=== PATIENT | female | born 1970 | race African-American/Black ===

== ENCOUNTER 2016-08-20 19:11 | Inpatient (IN) | payer OTHER ==
[~2016-08-20] VITALS: Ht 165.1 cm; Wt 173.2 kg
--- NOTE | ~2016-08-20 | H ---
[facility] [place] [address] HISTORY AND PHYSICAL Name: JOHN SPARKS Room #: 457-P ADM IN M.R.#: [id number] Admission: 08/20/16 Attend Phys: Elvira Ghosh DO Discharge: Date of : 66 Report #: [id number] THIS REPORT FOR: //name// CC: ROBERTA physician/PCP Elvira Ghosh DATE OF SERVICE: 08/21/2016 CHIEF COMPLAINT: Defibrillator firing. HISTORY OF PRESENT ILLNESS: The patient is a 45-year-old female, who was admitted through the emergency room with some palpitations and apparent discharge of her defibrillator. She was having bowel movement at home and approximately at 06:30 last night, the defibrillator fired twice. She felt little lightheaded preceding this, but had no chest pain or shortness of breath. She said she felt 2 episodes of likely a "pop" inside her chest. She presented to the emergency room and was clinically stable. However, she was noted to have slightly low potassium and magnesium. She was placed on observation status overnight. Telemetry has been stable, and no further shocks from the defibrillator. PAST MEDICAL HISTORY: Morbid obesity, hypertension, COPD due to asthma, obstructive sleep apnea, diabetes type 2, history of myocardial infarction in 2011, dyslipidemia, GERD, chronic ischemic cardiomyopathy, chronic kidney disease stage 3, permanent atrial fibrillation on anticoagulation, depression, PTSD, moderate to severe mitral insufficiency with ejection fraction of 20%, and coronary artery disease. PAST SURGICAL HISTORY: She has had a pacemaker defibrillator placement, left radial fracture. C-sections and tonsillectomy. FAMILY HISTORY: Noncontributory. SOCIAL HISTORY: She lives at home. No chronic alcohol or tobacco use. ALLERGIES: CIPRO. MEDICATIONS: Lantus 53 units at bedtime, gabapentin 200 mg t.i.d., NovoLog sliding scale, amiodarone 200 mg b.i.d., Tradjenta 5 mg, magnesium 400 mg, Coreg 50 mg b.i.d., Xarelto 15 mg, Imdur 60 mg, venlafaxine 225 mg, BuSpar 7.5 mg b.i.d., Lipitor 10 mg, ProAir, Demadex 40 mg, metolazone 2.5 mg, Cozaar 25 mg, allopurinol 100 mg. REVIEW OF SYSTEMS: She denies headache, chest pain, shortness of breath, abdominal pain, nausea, vomiting, diarrhea, constipation, dysuria, syncope, or fall. [facility] [address] [place] [address] HISTORY AND PHYSICAL Name: JOHN SPARKS Room #: 457-P [facility] IN ..#: [id number] Admission: 08/20/16 Attend Phys: Elvira Ghosh DO Discharge: Date of : 66 Report #: [id number] OBJECTIVE: VITAL SIGNS: Temperature 36.8, pulse 89, respirations 16, blood pressure 105/63, O2 sat 100% on room air. GENERAL: She is awake and alert, in no distress. LUNGS: Clear. HEART: Regular. ABDOMEN: Soft and normoactive bowel sounds. EXTREMITIES: No edema. LABORATORY DATA: Admission potassium was 3.2, magnesium was 1.7. Troponin was 0.21-0.32. BNP was 262. IMAGING: Chest x-ray showed clear lung nunez. ASSESSMENT: 1. Ischemic cardiomyopathy. 2. Defibrillator discharge times 2. 3. Electrolyte disturbance. 4. Chronic kidney disease stage 4 with estimated GFR of 25. 5. Diabetes type 2. 6. Chronic obstructive pulmonary disease. 7. Morbid obesity. PLAN: She has received electrolyte replacement through the ER. Initially, she was going to be discharged home, and her funeral greeter was contracted and cleared with that; however, they watched her overnight. I feel the elevated troponin is related to cardiac stress from the defibrillator, and her empiric creatinine clearance. If cardiology has no further plans for her, and it appears that they were ready to later go home last night, and followup next week, and then she can be discharged later today. Once electrolytes have been rechecked, I will increase her magnesium to twice a day and make sure she has potassium one a day for home. Follow up with her funeral greeter next week for lab work. <ELECTRONICALLY SIGNED> By: Cayden Kerr MD 08/21/16 1636 0825 1037 Cayden Kerr MD /nt
--- NOTE | ~2016-08-20 | HC ---
[facility] [place] [address] CONSULTATION Name: JOHN SPARKS Room #: 457-P ADM IN M.R.#: [id number] Admission: 08/20/16 Attend Phys: Elvira Ghosh DO Discharge: Date of : 66 Report #: [id number] THIS REPORT FOR: //name// CC: ROBERTA physician/PCP Elvira Ghosh DATE OF SERVICE: 08/22/2016 TYPE OF REPORT: Cardiology consultation. INDICATION: ICD discharge. HISTORY OF PRESENT ILLNESS: This is a 45-year-old female with presenting with an ICD discharge. She has a complicated cardiac history including CAD with disease in the small branch vessels, nonischemic cardiomyopathy, atrial fibrillation, COPD and chronic renal insufficiency. She is followed by Dr. Song Rider from [facility]. She reports having ICD discharge times 2 last evening while going to the bathroom. She offers no history of chest pains, fever, chills or congestion. In the ER, the defibrillator was interrogated by the pacemaker enrollment representative who reported 2 episodes of discharge. Unclear if it was ST-T versus VF. Laboratory workup revealed potassium level of 3.2 and a magnesium level of 1.7, both were supplemented. On telemetry, she has not had any further episodes of arrhythmia. PAST MEDICAL HISTORY: Cath in 2011 revealed mrgv-yq-tjfumvjh disease in the major vessels, she did have cslcvqig-nd-ocmxmb lesions in small branches including diagonal, PDA and posterolateral branch. Medical therapy was recommended. She does have a history of nonischemic cardiomyopathy, paroxysmal atrial fibrillation, morbid obesity, COPD, chronic renal insufficiency, edema, hypertension and hypercholesterolemia. ALLERGIES: CIPRO. MEDICATIONS AT HOME: Include Coreg 50 mg twice a day, Xarelto 15 mg daily, insulin, Imdur 60 mg, Lipitor, Demadex 40 mg, metolazone, Cozaar and allopurinol. SOCIAL HISTORY: Denies tobacco use. FAMILY HISTORY: Negative for premature CAD. REVIEW OF SYSTEMS: A full 10-point review of systems performed. Only the pertinent positives and negatives are described in the HPI. PHYSICAL EXAMINATION: VITAL SIGNS: Blood pressure is 100/60 and heart rate is 70 beats per minute. [facility] [address] [place] [address] CONSULTATION Name: JOHN SPARKS Room #: 457-P [facility] IN [facility].#: [id number] Admission: 08/20/16 Attend Phys: Elvira Ghosh DO Discharge: Date of : 66 Report #: [id number] GENERAL APPEARANCE: This is an obese female, in no acute respiratory distress. HEAD AND EYES: Normocephalic. Sclerae are anicteric. ENT: Oral mucosa moist. NECK: Supple. LUNGS: Clear to auscultation. CARDIAC: S1 and S2 positive. ABDOMEN: Soft and protuberant. EXTREMITIES: No major joint deformities. Trace edema. LABORATORY VALUES: Peak troponin is 0.59. RADIOLOGICAL DATA: ECG reveals sinus rhythm and left bundle-branch block. ASSESSMENT AND PLAN: 1. Implantable cardioverter-defibrillator discharge, unclear if this was ST-T versus ventricular fibrillation. May have been triggered by electrolyte imbalance. She will need an electrophysiology evaluation, it may be down as an outpatient if she wants a followup with her coal crusher operator at [facility]. Continue with oral supplementation of the magnesium and potassium. 2. Coronary artery disease with troponin is 0.59, this is not a gsr-HE-migrlbl-elevation myocardial infarction, more likely related from mismatch secondary to arrhythmia and implantable cardioverter-defibrillator discharge. Clinically stable at this time. 3. Cardiomyopathy, stable with no overt symptoms of congestion. 4. Paroxysmal atrial fibrillation, remains in sinus rhythm. Continue with anticoagulation and amiodarone. 5. Chronic renal insufficiency. 6. Chronic obstructive pulmonary disease. Thank you for allowing me to participate in the care of your patient. <ELECTRONICALLY SIGNED> By: Ted Terrell MD 08/23/16 0748 1630 2354 Ted Terrell MD /nt
--- NOTE | ~2016-08-20 | EKG ---
[address] [place] [address] ELECTROCARDIOGRAM REPORT Name: JOHN SPARKS Room #: 457-P ADM IN M.R.#: [id number] Admission: 08/20/16 Attend Phys: Elvira Ghosh DO Discharge: Date of : 66 Report #: [id number] THIS REPORT FOR: //name// [facility] ED Test Date: 2016-08-20 Test Time: 19:27:17 Pat Name: JOHN SPARKS Department: Room: [facility] Gender: F Oil Changer: VIK : 1970 Requested By: Bindu Adame Order Number: [id number] MD: Sharad Payan Measurements Intervals [place]berta Rate: 96 P: 11 WV: 212 QRS: -28 QRSD: 137 T: 140 QT: 406 QTc: 514 Interpretive Statements Sinus tachycardia Atrial premature complexes in couplets Prolonged WV interval Left bundle branch block Compared to ECG 03/20/2016 14:38:16 Atrial premature complexes are now present Electronically Signed On 08-21-2016 7:53:54 WORKERS COMPENSATION CLAIMS SPECIALIST by Sharad Payan [email or web address] <ELECTRONICALLY SIGNED> By: Sharad Payan MD, [facility] 08/21/16 0753 192 26 Sharad Payan MD, [facility] /EPI
--- NOTE | ~2016-08-20 | D ---
[facility] [place] [address] DISCHARGE SUMMARY Name: JOHN SPARKS Room #: 457-P [facility] IN M.R.#: [id number] Admission: 08/20/16 Attend Phys: Elvira Ghosh DO Discharge: 08/23/16 Date of : 66 Report #: [id number] THIS REPORT FOR: //name// CC: ROBERTA physician/PCP Elvira Ghosh FINAL DIAGNOSES: 1. Implantable cardioverter defibrillator discharge. 2. Electrolyte disturbance. 3. Cardiomyopathy. 4. Diabetes type 2. 5. Hypertension. 6. Chronic kidney disease stage 4. HOSPITAL COURSE: The patient was admitted through the ER after her defibrillator discharged twice at home. She was found to have low magnesium and potassium. This was supplemented in the ER. Initially, the note suggested ER staff had consulted with her ultrasound technologist sonographer, who recommended she could be discharged to home. However, the health allied staff obtained a troponin level which was elevated. For this reason, she then called Dr. Prado to have her admitted. She was watched overnight. Troponin levels were slightly elevated. I felt this was related to the discharge of the defibrillator. She then had an episode of hypotension and low doses of IV fluids were given. Her home medications were held. The cardiology service then saw her and felt again no new recommendations or treatments for the troponin levels were related to the defibrillator discharge. She had no other interval complications. PHYSICAL EXAMINATION: GENERAL: On the day of discharge, she was awake and alert. VITAL SIGNS: Stable. LUNGS: Clear. HEART: Regular. ABDOMEN: Soft. EXTREMITIES: No edema. DISPOSITION: She will be discharged to home to resume all usual medications, with a change being magnesium 400 mg b.i.d. She is to follow up with Dr. Rider this coming week for followup lab work and follow up with me here in the office in 3 weeks. Diabetic diet and activity as tolerated. <ELECTRONICALLY SIGNED> By: Cayden Kerr MD 08/25/16 1035 0910 0948 Cayden Kerr MD /nt
[~2016-08-20 19:11] MED LIST: ACID CONTROL20 MG PO; ADULT LOW DOSE81 MG PO; ADVAIR HFA 1112 UNIT INH; ALBUTEROL2.5 MG/0.1 IH; ALBUTEROL2.5 MG/0.5 INH; ALBUTEROL2.5 MG/31 INH; ALDACTONE25 MG PO; ALLOPURINOL 10100 M1 PO; AMLODIPINE BESYL5 MG PO; AMOXICILLIN875 MG PO; APAP500 PO; ASPIRIN325 PO; AUGMENTIN 875875 MG PO; AVELOX 400 MG400 M1 PO; AZITHROMYCIN 2250 MG PO; BACTRIM 400-801 EACH PO; BACTRIM DS TAB1 EAC1 PO; BACTRIM DS TAB1 EACH PO; BENAZEPRIL HCL40 MG PO; BUSPIRONE HCL7.5 MG PO; CARDURA2 MG PO; CARDURA4 MG PO; CARVEDILOL25 MG PO; CEFTIN 250 MG250 MG PO; CEPHALEXIN 500500 M1 PO; CIPROFLOXACIN500 M1 PO; CLARITIN10 MG PO; CLEOCIN HCL150 MG PO; CLEOCIN HCL300 MG PO; COLCHICINE0.6 MG PO; COUMADIN; COUMADIN 5 MG TA5 M1 PO; COUMADIN 5 MG TA5 MG PO; COZAAR 25 MG TA25 M1 PO; DEMADEX20 MG PO; DIFLUCAN PO; DIFLUCAN100 MG PO; DILTIAZEM 24HR240 MG PO; DOXYCYCLINE 10100 M1 PO; DOXYCYCLINE 10100 MG PO; DUONEB 2.5-0.5 M3 ML INH; EFFEXOR XR150 MG PO; EFFEXOR XR75 MG PO; EFFEXOR75 MG PO; ERYTHROMYCIN E3.5 G3 OP; FAMOTIDINE20 MG PO; FUROSEMIDE 40 M40 M1 PO; FUROSEMIDE PO; GABAPENTIN100 MG PO; GENTAMICIN 0.1%15 G2 TOP; GLUCOSE4 GM PO; HUMALOG100 UNIT/1 SUBQ; HYDROCODON-ACE1 EAC7 PO; HYDROCODONE-AP1 EAC6 PO; IMDUR 60 MG TAB60 M1 PO; IMDUR 60 MG TAB60 MG PO; IMDUR120 MG PO; ISOSORBIDE DINI30 MG PO; K-DUR 20 MEQ T20 MEQ PO; KEFLEX500 MG PO; KLOR-CON 1010 MEQ PO; KLOR-CON M1515 MEQ PO; LANTUS SC; LANTUS SUBQ; LASIX 40 MG TAB40 M1 PO; LASIX 80 MG TAB80 MG PO; LEVEMIR; LEXAPRO20 MG PO; LIPITOR10 MG PO; LISINOPRIL20 MG PO; LISINOPRIL40 MG PO; LORTABELXR PO; MAG DELAY64 MG PO; MAGNESIUM250 M1 PO; MAGNESIUM400 M1 PO; MAGOX 400400 MG PO; MEDROL DOSPAK21 TAB PO; MEDROLDOSEPACK; METOCLOPRAMIDE 55 M1 PO; METOLAZONE 2.52.5 M1 PO; METOLAZONE 2.52.5 MG PO; METOLAZONE 5 MG5 M1 PO; MUCINEX DM TABL1 TA1 PO; MULTIVITAMINS PO; NAPROSYN500 MG PO; NITROGLYCERIN0.4 MG SL; NITROGLYCERIN0.4 MG SUBLING; NORCO 10-325 T1 EACH PO; NORCO 5-325 TA1 EACH PO; NORFLEX100 MG PO; NOVOLOG FL100 UNIT/M SUBQ; NOVOLOG100 UNIT/1 SQ; NOVOLOG100 UNIT/1 SUBQ; ONDANSETRON HCL4 M2 PO; PACERONE 200 M200 M1 PO; PENICILLIN VK500 MG PO; PERCOCET 5-3251 EACH PO; PHENERGAN 25 MG25 MG PO; POTASSIUM CHLO20 ME1 PO; POTASSIUM CHLO20 ME2 PO; POTASSIUM20 PO; PRAVACHOL40 M1 PO; PRAVACHOL40 MG PO; PRAVASTATIN SOD80 MG PO; PREDNISOLONE 5 M5 M1; PREDNISONE 20 M20 M1 PO; PREDNISONE 20 M20 MG PO; PREDNISONE50 MG PO; PRINIVIL20 MG PO; PROAIR HFA8.5 GM IH; PROAIR HFA8.5 GM INH; PROVENTIL HFA6.7 G1 INH; PROVENTIL IH; SANTYL TOP; SIMVASTATIN40 MG PO; SPIRONOLACTONE100 M4 PO; SPIRONOLACTONE25 M1 PO; SPIRONOLACTONE50 MG PO; STERAPRED5 MG PO; SYMBICORT160 MCG/4. INH; TORSEMIDE20 MG PO; TRADJENTA5 MG PO; TYLENOL EX-STR500 M2 PO; VENLAFAXINE HC225 MG PO; VENLAFAXINE HCL75 M2 PO; XARELTO15 MG PO; ZESTRIL40 MG PO; ZPAK PO
[2016-08-20 19:16] VITALS: BP 138/82
[2016-08-20 19:46] LABS: CALCIUM 9.6 mg/dL (8.5-10.1); CREATININE 2.5 mg/dL (0.6-1.3); POTASSIUM 3.2 mmol/L (3.5-5.1)
[2016-08-20 19:47] LABS: ABSOLUTE NEUTROPHILS 4.5 thou/uL (1.4-8.2); BASOPHILS 1.1 % (0.0-2.0); EOSINOPHILS 1.1 % (0.0-3.0); HEMOGLOBIN 14.9 gm/dL (12.0-15.0); LYMPHOCYTES 33.8 % (24.0-44.0); MANUAL DIFF NO; MCH 27.7 pg (26.0-34.0); MCHC 34.7 % (28.0-37.0); MCV 79.9 fL (80.0-100.0); MONOCYTES 8.4 % (1.0-8.0); PLATELET COUNT 219 thou/uL (150-400); POLYS 55.6 % (36.0-66.0); RBC 5.38 mil/uL (4.20-5.00); RDW 14.5 % (10.5-14.5); WBC 8.1 thou/uL (4.0-11.0)
[2016-08-20 19:51] LABS: APTT 33.8 Seconds (24.5-32.8); INR 1.3; PROTIME 13.9 Seconds (9.3-11.4)
[2016-08-20 19:59] LABS: ALBUMIN 3.6 g/dL (3.4-5.0); TOTAL BILIRUBIN 0.6 mg/dL (<0.1-1.0); TOTAL PROTEIN 8.6 g/dL (6.4-8.2); TROPONIN-I 0.21 ng/mL (<0.04-0.07)
[2016-08-20 23:34] VITALS: BP 124/70
[2016-08-20 23:50] VITALS: BP 147/94
[2016-08-21 04:05] VITALS: BP 137/77
[2016-08-21 07:58] VITALS: BP 105/63
[2016-08-21 09:39] LABS: CALCIUM 9.1 mg/dL (8.5-10.1); CREATININE 2.3 mg/dL (0.6-1.3); MAGNESIUM 2.1 mg/dL (1.8-2.4)
[2016-08-21 10:58] VITALS: BP 103/57
[2016-08-21 15:37] VITALS: BP 121/74
[2016-08-21 21:01] VITALS: BP 76/48
[2016-08-21 23:52] VITALS: BP 89/45
[2016-08-22] VITALS (8 sets, daily range): BP systolic 89–118; BP diastolic 45–92
[2016-08-22 06:03] LABS: CALCIUM 8.9 mg/dL (8.5-10.1); MAGNESIUM 2.3 mg/dL (1.8-2.4); POTASSIUM 3.9 mmol/L (3.5-5.1)
[2016-08-22 06:56] LABS: CREATININE 3.5 mg/dL (0.6-1.3)
[2016-08-23 03:59] VITALS: BP 113/57
[2016-08-23 05:59] LABS: HEMATOCRIT 37.6 % (37.0-47.0); MCH 26.7 pg (26.0-34.0); MCHC 32.8 % (28.0-37.0); MCV 81.4 fL (80.0-100.0); RBC 4.62 mil/uL (4.20-5.00); RDW 14.4 % (10.5-14.5); WBC 6.6 thou/uL (4.0-11.0)
[2016-08-23 06:08] LABS: HEMOGLOBIN 12.3 gm/dL (12.0-15.0)
[2016-08-23 06:33] LABS: CALCIUM 8.8 mg/dL (8.5-10.1); CREATININE 3.3 mg/dL (0.6-1.3); MAGNESIUM 2.4 mg/dL (1.8-2.4); POTASSIUM 3.1 mmol/L (3.5-5.1)
[2016-08-23 07:40] VITALS: BP 126/69
[2016-08-23 10:18] VITALS: BP 126/69
== END 2016-08-23 15:47 | disposition home or self-care (01) | DRG 315 ==
LOC: ER 19:11 → 4W 22:55 → EROBS 22:55 → 4W 23:40
PROVIDERS: Emergency Medicine; Internal Medicine Geriatric Medicine
DX: T82.897A Other specified complication of cardiac prosthetic devices, implants and grafts, initial encounter (principal); N18.4 Chronic kidney disease, stage 4 (severe); I13.0 Hypertensive heart and chronic kidney disease with heart failure and stage 1 through stage 4 chronic kidney disease, or unspecified chronic kidney disease; Z68.44 Body mass index [BMI] 60.0-69.9, adult; I50.9 Heart failure, unspecified; M10.9 Gout, unspecified; G47.33 Obstructive sleep apnea (adult) (pediatric); E78.00 Pure hypercholesterolemia, unspecified; J45.909 Unspecified asthma, uncomplicated; J44.9 Chronic obstructive pulmonary disease, unspecified; F43.10 Post-traumatic stress disorder, unspecified; I25.10 Atherosclerotic heart disease of native coronary artery without angina pectoris; I25.5 Ischemic cardiomyopathy; I48.2 Chronic atrial fibrillation; E87.6 Hypokalemia; E83.42 Hypomagnesemia; E11.22 Type 2 diabetes mellitus with diabetic chronic kidney disease; F32.9 Major depressive disorder, single episode, unspecified; K80.20 Calculus of gallbladder without cholecystitis without obstruction; I95.9 Hypotension, unspecified; E78.5 Hyperlipidemia, unspecified; E66.01 Morbid (severe) obesity due to excess calories; Z23 Encounter for immunization; I34.0 Nonrheumatic mitral (valve) insufficiency; K21.9 Gastro-esophageal reflux disease without esophagitis; I25.2 Old myocardial infarction; Z79.01 Long term (current) use of anticoagulants; Z98.890 Other specified postprocedural states; Z79.899 Other long term (current) drug therapy; Z88.1 Allergy status to other antibiotic agents; Y83.8 Other surgical procedures as the cause of abnormal reaction of the patient, or of later complication, without mention of misadventure at the time of the procedure; Y92.89 Other specified places as the place of occurrence of the external cause
CPT/HCPCS: 10045

== ENCOUNTER 2017-03-15 08:12 | Inpatient (IN) | payer OTHER ==
[~2017-03-15] VITALS: Ht 165.1 cm; Wt 172.4 kg
--- NOTE | ~2017-03-15 | EKG ---
[address] [address] ELECTROCARDIOGRAM REPORT Name: JOHN SPARKS Room #: 447-P ADM IN .R.#: [id number] Admission: 03/15/17 Attend Phys: Bandar Lombardo MD Discharge: Date of : 66 Report #: [id number] THIS REPORT FOR: //name// [facility] ED Test Date: 2017-03-15 Test Time: 08:23:41 Pat Name: JOHN THOMASENSHIP Department: Room: [facility] Gender: F Auto Detailer: . : 1970 Requested By: Kimber Bai Order Number: [id number] MD: Measurements Intervals Reading Rate: 89 P: MD: QRS: -13 QRSD: 129 T: 118 QT: 421 QTc: 513 Interpretive Statements Atrial fibrillation Nonspecific intraventricular conduction delay Probable anterolateral infarct, old Compared to ECG 08/20/2016 19:27:17 Intraventricular conduction delay now present Myocardial infarct finding now present Sinus tachycardia no longer present Atrial premature complex(es) no longer present First degree AV block no longer present Left bundle-branch block no longer present [email or web address] By: 2 2 Epiphany Epiphany, /JOE
--- NOTE | ~2017-03-15 | 2DMMODE ---
[facility] [address] [place] [address] 2 D/M-MODE ECHOCARDIOGRAM Name: DAT SPARKSN RISHABH Room #: 447-P ADM IN .Alvaro.#: [id number] Admission: 03/15/17 Attend Phys: Bandar Lombardo MD Discharge: Date of : 66 Date of Service: 03/15/17 1545 Report #: [id number] THIS REPORT FOR: //name// APPROVED REPORT Study performed: 03/15/2017 14:05:14 EXAM: Comprehensive 2D, Doppler, and color-flow Echocardiogram Patient Location: Bedside Room #: 447 Status: routine Other Information Study Quality: Technically Difficult, Adequate Technically limited study due to body habitus, inability to position patient. Indications Congestive Heart Failure Diabetes Pacemaker CAD Hypertension/HDD Echo Enhancing Agent Indication: Endocardial border delineation Agent(s) / Amount(s) Used: Optison 3 cc 2D Dimensions RVDd: 39.70 mm LVEF(%): 30.13 (>50%) IVSd: 11.54 (7-11mm) LVOT Diam: 22.35 (18-24mm) LVDd: 61.32 mm PWd: 11.88 (7-11mm) Ascending Ao: 28.85 (22-36mm) LVDs: 52.46 (25-40mm) Aortic Root: 25.96 mm IVC: 15.00 mm Ellis's LVEF: 30.13 % Volumes Left Atrial Volume (Systole) Single Plane 4CH: 72.64 mL Single Plane 2CH: 76.88 mL LA ESV Index: 31.00 mL/m2 Aortic Valve AoV Peak Bhupendra.: 1.67 m/s [facility] [address] [place] [address] 2 D/M-MODE ECHOCARDIOGRAM Name: JOHN SPARKS Room #: 447-P [facility] IN ..#: [id number] Admission: 03/15/17 Attend Phys: Bandar Lombardo MD Discharge: Date of : 66 Date of Service: 03/15/17 1545 Report #: [id number] Peak Gr.: 11.11 mmHg LVOT Max P.48 mmHg LVOT Max V: 1.06 m/s DARRYL Vmax: 2.49 cm2 Mitral Valve E/A Ratio: 1.3 MV Decel. Time: 189.78 ms MV E Max Bhupendra.: 1.24 m/s MV A Bhupendra.: 0.92 m/s MV PHT: 55.04 ms IVRT: 83.04 ms Pulmonary Valve PV Peak Bhupendra.: 1.49 m/s PV Peak Gr.: 8.82 mmHg Pulmonary Vein P Vein S: 0.32 m/s P Vein A: 0.10 m/s P Vein D: 0.39 m/s P Vein A Dur.: 69.2 msec P Vein S/D Ratio: 0.82 Tricuspid Valve TR Peak Bhupendra.: 3.88 m/s RAP Estimate: 5.00 mmHg TR Peak Gr.: 60.32 mmHg Left Ventricle Left ventricle is dilated. Mild concentric left ventricular hypertrophy. Left ventricular systolic function is decreased. LVEF is 30-35%. Transmitral Doppler flow pattern appears normal. Right Ventricle Right ventricle is dilated. Right ventricular systolic function is grossly normal. Atria Left atrium is dilated. Right atrium is dilated. Aortic Valve The aortic valve is normal in structure. Mild aortic regurgitation. There is no aortic valvular stenosis. Mitral Valve The mitral valve is normal in structure. There is no mitral valve regurgitation noted. No evidence of mitral valve stenosis. Tricuspid Valve The tricuspid valve is normal in structure. Mild tricuspid [facility] [address] [address] 2 D/M-MODE ECHOCARDIOGRAM Name: JOHN SPARSK Room #: 447-P ADM IN ..#: [id number] Admission: 03/15/17 Attend Phys: Bandar Lombardo MD Discharge: Date of : 66 Date of Service: 03/15/17 1545 Report #: [id number] regurgitation. Pulmonic Valve The pulmonary valve is normal in structure. Trace pulmonic regurgitation. Great Vessels The aortic root is normal in size. IVC is normal in size and collapses >50% with inspiration. <Conclusion> Left ventricle is dilated. Mild concentric left ventricular hypertrophy. LVEF is 30-35%. Right ventricle is dilated. Left atrium is dilated. Right atrium is dilated. The aortic valve is normal in structure. Mild aortic regurgitation. The mitral valve is normal in structure. The tricuspid valve is normal in structure. Mild tricuspid regurgitation. The aortic root is normal in size. <ELECTRONICALLY SIGNED> By: Steve Garay MD 03/15/17 1545 1545 1545 Steve Garay MD /INF
[2017-03-15 08:12] VITALS: BP 167/98
[2017-03-15 08:44] LABS: ABSOLUTE NEUTROPHILS 4.2 thou/uL (1.4-8.2); BASOPHILS 1.2 % (0.0-2.0); EOSINOPHILS 1.4 % (0.0-3.0); HEMATOCRIT 34.1 % (37.0-47.0); HEMOGLOBIN 11.4 gm/dL (12.0-15.0); LYMPHOCYTES 26.5 % (24.0-44.0); MCH 27.3 pg (26.0-34.0); MCHC 33.4 g/dL (28.0-37.0); MCV 81.6 fL (80.0-100.0); MONOCYTES 7.9 % (1.0-8.0); PLATELET COUNT 165 thou/uL (150-400); RBC 4.18 mil/uL (4.20-5.00); RDW 14.6 % (10.5-14.5); WBC 6.6 thou/uL (4.0-11.0)
[2017-03-15 08:47] LABS: MANUAL DIFF NO
[2017-03-15 08:55] LABS: CALCIUM 8.7 mg/dL (8.5-10.1); CREATININE 1.5 mg/dL (0.6-1.0); POTASSIUM 3.3 mmol/L (3.5-5.1)
[2017-03-15 09:08] LABS: TROPONIN-I 0.25 ng/mL (<0.04-0.07)
[2017-03-15 09:48] VITALS: BP 127/73
[2017-03-15 10:22] VITALS: BP 138/81
[2017-03-15 10:45] VITALS: BP 156/70; BP 156/84
[2017-03-15 15:40] VITALS: BP 156/70
[2017-03-15 19:41] VITALS: BP 150/85
[2017-03-16 04:35] VITALS: BP 121/58
[2017-03-16 06:25] LABS: HEMATOCRIT 31.2 % (37.0-47.0); HEMOGLOBIN 10.6 gm/dL (12.0-15.0); MCH 28.1 pg (26.0-34.0); MCHC 34.2 g/dL (28.0-37.0); MCV 82.1 fL (80.0-100.0); RBC 3.79 mil/uL (4.20-5.00); RDW 14.5 % (10.5-14.5); WBC 4.9 thou/uL (4.0-11.0)
[2017-03-16 06:35] LABS: CREATININE 1.5 mg/dL (0.6-1.0); POTASSIUM 3.4 mmol/L (3.5-5.1)
[2017-03-16 06:55] LABS: CALCIUM 7.9 mg/dL (8.5-10.1)
[2017-03-16 08:46] VITALS: BP 132/78
[2017-03-16] MEDS ORDERED: METOLAZONE 2.52.5 MG PO (15:03)
[2017-03-16] MEDS ORDERED: TORSEMIDE20 MG PO (15:03)
[2017-03-16 15:26] VITALS: BP 132/78
== END 2017-03-16 18:07 | disposition home or self-care (01) | DRG 291 ==
LOC: ER 08:12 → 4S 09:40 → EROBS 09:40 → 4S 10:57
PROVIDERS: Emergency Medicine; Hospitalist
DX: I13.0 Hypertensive heart and chronic kidney disease with heart failure and stage 1 through stage 4 chronic kidney disease, or unspecified chronic kidney disease (principal); I50.23 Acute on chronic systolic (congestive) heart failure; Z68.44 Body mass index [BMI] 60.0-69.9, adult; I47.2 Ventricular tachycardia; E66.01 Morbid (severe) obesity due to excess calories; E87.6 Hypokalemia; I25.10 Atherosclerotic heart disease of native coronary artery without angina pectoris; E78.5 Hyperlipidemia, unspecified; I48.0 Paroxysmal atrial fibrillation; D63.8 Anemia in other chronic diseases classified elsewhere; I34.0 Nonrheumatic mitral (valve) insufficiency; I42.9 Cardiomyopathy, unspecified; F43.10 Post-traumatic stress disorder, unspecified; N18.3 Chronic kidney disease, stage 3 (moderate); J44.9 Chronic obstructive pulmonary disease, unspecified; E11.22 Type 2 diabetes mellitus with diabetic chronic kidney disease; G47.33 Obstructive sleep apnea (adult) (pediatric); E78.00 Pure hypercholesterolemia, unspecified; K21.9 Gastro-esophageal reflux disease without esophagitis; M10.9 Gout, unspecified; F32.9 Major depressive disorder, single episode, unspecified; F17.210 Nicotine dependence, cigarettes, uncomplicated; Z87.81 Personal history of (healed) traumatic fracture; Z91.14 Patient's other noncompliance with medication regimen; Z71.6 Tobacco abuse counseling; I25.2 Old myocardial infarction; Z95.810 Presence of automatic (implantable) cardiac defibrillator; Z88.1 Allergy status to other antibiotic agents; Z82.49 Family history of ischemic heart disease and other diseases of the circulatory system
CPT/HCPCS: 10100

== ENCOUNTER 2017-05-27 11:19 | Inpatient (IN) | payer OTHER ==
[~2017-05-27] VITALS: Ht 165.1 cm; Wt 176.6 kg
--- NOTE | ~2017-05-27 | EKG ---
[place] [address] [facility] [place] [address] ELECTROCARDIOGRAM REPORT Name: JOHN SPARKS Room #: [facility]#: [id number] Admission: 05/27/17 Attend Phys: Discharge: Date of : 66 Report #: [id number] THIS REPORT FOR: //name// [facility] ED Test Date: 2017-05-27 Test Time: 12:00:38 Pat Name: JOHN SPARKS Department: Room: Gender: F Shirt Line Operator: [id number] : 1970 Requested By: Vinh Gil Order Number: [id number] MD: Sriram Tejeda Measurements Intervals [place] Rate: 69 P: -2 MO: 227 QRS: -22 QRSD: 148 T: 142 QT: 487 QTc: 522 Interpretive Statements Sinus rhythm Atrial premature complex Prolonged MO interval Probable left ventricular hypertrophy Anterior Q waves, possibly due to LVH Electronically Signed On 05-27-2017 12:40:59 CDT by Sriram Tejeda [email or web address] <ELECTRONICALLY SIGNED> By: Sriram Tejeda MD 05/27/17 1240 1200 1200 Sriram Tejeda MD /JOE
[2017-05-27 11:22] VITALS: BP 129/78
[2017-05-27] MEDS ORDERED: ALDACTONE25 MG PO (11:58)
[2017-05-27] MEDS ORDERED: NOVOLOG100 UNIT/1 SUBQ (11:59)
[2017-05-27 12:33] LABS: ABSOLUTE NEUTROPHILS 3.6 thou/uL (1.4-8.2); BASOPHILS 1.3 % (0.0-2.0); EOSINOPHILS 1.2 % (0.0-3.0); HEMATOCRIT 37.6 % (37.0-47.0); HEMOGLOBIN 12.7 gm/dL (12.0-15.0); LYMPHOCYTES 37.8 % (24.0-44.0); MCHC 33.8 g/dL (28.0-37.0); MCV 80.1 fL (80.0-100.0); MONOCYTES 7.7 % (1.0-8.0); PLATELET COUNT 200 thou/uL (150-400); RBC 4.69 mil/uL (4.20-5.00); RDW 14.1 % (10.5-14.5); WBC 6.8 thou/uL (4.0-11.0)
[2017-05-27 12:39] LABS: MANUAL DIFF NO
[2017-05-27 13:08] LABS: CALCIUM 8.9 mg/dL (8.5-10.1); CREATININE 2.3 mg/dL (0.6-1.0); TOTAL BILIRUBIN 0.3 mg/dL (<0.1-1.0); TOTAL PROTEIN 7.1 g/dL (6.4-8.2); TROPONIN-I 0.24 ng/mL (<0.04-0.07)
[2017-05-27 13:26] LABS: POTASSIUM 2.1 mmol/L (3.5-5.1)
[2017-05-27 15:48] VITALS: BP 122/67
[2017-05-27 16:14] VITALS: BP 122/67
[2017-05-27 16:52] VITALS: BP 118/72
[2017-05-27 19:31] VITALS: BP 116/70
[2017-05-28 00:05] VITALS: BP 127/71
[2017-05-28 04:15] VITALS: BP 118/62
[2017-05-28 05:44] LABS: HEMATOCRIT 40.9 % (37.0-47.0); HEMOGLOBIN 13.4 gm/dL (12.0-15.0); MCH 26.8 pg (26.0-34.0); MCHC 32.8 g/dL (28.0-37.0); MCV 81.7 fL (80.0-100.0); PLATELET COUNT 213 thou/uL (150-400); RBC 5.01 mil/uL (4.20-5.00); RDW 14.3 % (10.5-14.5)
[2017-05-28 05:45] LABS: MANUAL DIFF YES
[2017-05-28 05:49] LABS: CALCIUM 9.3 mg/dL (8.5-10.1); CREATININE 2.5 mg/dL (0.6-1.0); MAGNESIUM 2.1 mg/dL (1.8-2.4)
[2017-05-28 07:38] VITALS: BP 123/66
[2017-05-28 07:55] LABS: ABSOLUTE NEUTROPHILS 7.7 thou/uL (1.4-8.2); TOTAL CELL COUNT 100
[2017-05-28 07:56] LABS: LARGE PLATELETS FEW
[2017-05-28 07:57] LABS: ANISOCYTOSIS SLIGHT
[2017-05-28 11:48] VITALS: BP 124/68
[2017-05-28 12:32] LABS: CALCIUM 8.8 mg/dL (8.5-10.1); CREATININE 2.5 mg/dL (0.6-1.0)
[2017-05-28 15:53] VITALS: BP 97/47
[2017-05-28 20:00] VITALS: BP 135/79
[2017-05-29 04:00] VITALS: BP 140/81
[2017-05-29 06:16] LABS: HEMATOCRIT 39.2 % (37.0-47.0); MCH 26.8 pg (26.0-34.0); MCHC 33.3 g/dL (28.0-37.0); MCV 80.7 fL (80.0-100.0); RBC 4.86 mil/uL (4.20-5.00); RDW 14.4 % (10.5-14.5); WBC 14.6 thou/uL (4.0-11.0)
[2017-05-29 06:24] LABS: CALCIUM 8.8 mg/dL (8.5-10.1); CREATININE 2.4 mg/dL (0.6-1.0); POTASSIUM 3.3 mmol/L (3.5-5.1)
[2017-05-29 07:48] VITALS: BP 136/75
[2017-05-29 12:47] VITALS: BP 131/69
[2017-05-29 17:32] VITALS: BP 125/68
[2017-05-29 19:25] VITALS: BP 123/71
[2017-05-30 03:50] VITALS: BP 125/86
[2017-05-30 05:20] LABS: ABSOLUTE NEUTROPHILS 6.5 thou/uL (1.4-8.2); BASOPHILS 0.4 % (0.0-2.0); EOSINOPHILS 0.1 % (0.0-3.0); HEMATOCRIT 41.7 % (37.0-47.0); HEMOGLOBIN 13.7 gm/dL (12.0-15.0); LYMPHOCYTES 33.5 % (24.0-44.0); MCH 26.4 pg (26.0-34.0); MCHC 32.8 g/dL (28.0-37.0); MCV 80.3 fL (80.0-100.0); MONOCYTES 7.5 % (1.0-8.0); PLATELET COUNT 268 thou/uL (150-400); POLYS 58.5 % (36.0-66.0); RBC 5.19 mil/uL (4.20-5.00); RDW 14.7 % (10.5-14.5); WBC 11.1 thou/uL (4.0-11.0)
[2017-05-30 05:32] LABS: MANUAL DIFF NO
[2017-05-30 05:34] LABS: CALCIUM 8.8 mg/dL (8.5-10.1); CREATININE 2.5 mg/dL (0.6-1.0)
[2017-05-30 05:43] LABS: POTASSIUM 2.6 mmol/L (3.5-5.1)
[2017-05-30 08:24] VITALS: BP 108/72
[2017-05-30 16:10] LABS: GLYCOHEMOGLOBIN (HGB A1C) 10.6 % (4.8-5.6)
[2017-05-30 16:20] VITALS: BP 129/77
[2017-05-30 20:00] VITALS: BP 119/52
[2017-05-31 04:00] VITALS: BP 124/78
[2017-05-31 06:38] LABS: CALCIUM 8.6 mg/dL (8.5-10.1); CREATININE 2.1 mg/dL (0.6-1.0)
[2017-05-31 06:40] LABS: POTASSIUM 2.5 mmol/L (3.5-5.1)
[2017-05-31 07:59] VITALS: BP 130/76
[2017-05-31 09:03] LABS: URINE BILIRUBIN NEGATIVE (Negative); URINE BLOOD NEGATIVE (Negative); URINE COLOR YELLOW; URINE GLUCOSE-RANDOM* NEGATIVE (Negative); URINE KETONES NEGATIVE (Negative); URINE NITRITE POSITIVE (Negative); URINE PROTEIN (DIPSTICK) NEGATIVE (Negative); URINE UROBILINOGEN 0.2 E.U./dl (0.2-1.0)
[2017-05-31 09:25] LABS: SQUAMOUS 4-10 Moderate /LPF (0-3)
[2017-05-31 09:26] LABS: BACTERIA >30 Many /HPF (None Seen); CASTS None Seen /LPF (None Seen); CRYSTALS None Seen /LPF (None Seen); URINE RBC None Seen /HPF (0-2); URINE WBC 6-15 Few /HPF (0-5)
[2017-05-31] MEDS ORDERED: ALDACTONE25 MG PO (10:16)
[2017-05-31] MEDS ORDERED: CEFUROXIME500 MG PO (10:34)
[2017-05-31 11:25] VITALS: BP 103/64
[2017-05-31 15:24] VITALS: BP 129/75
[2017-05-31 17:28] LABS: HEMATOCRIT 40.2 % (37.0-47.0); HEMOGLOBIN 13.3 gm/dL (12.0-15.0); MCH 26.9 pg (26.0-34.0); MCHC 33.2 g/dL (28.0-37.0); MCV 81.1 fL (80.0-100.0); RBC 4.95 mil/uL (4.20-5.00); RDW 14.8 % (10.5-14.5); WBC 8.8 thou/uL (4.0-11.0)
[2017-05-31 20:00] VITALS: BP 108/50
[2017-06-01 04:00] VITALS: BP 119/65
[2017-06-01 04:17] LABS: CALCIUM 8.5 mg/dL (8.5-10.1); CREATININE 2.2 mg/dL (0.6-1.0); POTASSIUM 3.2 mmol/L (3.5-5.1)
[2017-06-01 07:24] VITALS: BP 124/79
[2017-06-01 10:51] VITALS: BP 124/79
[2017-06-01 11:38] VITALS: BP 124/73
[2017-06-01 17:31] VITALS: BP 124/73
== END 2017-06-01 17:58 | disposition home or self-care (01) | DRG 871 ==
LOC: ER 11:19 → EROBS 14:05 → 3W 14:05
PROVIDERS: Hospitalist; Internal Medicine Endocrinology, Diabetes & Metabolism; Nurse Practitioner; Nurse Practitioner Acute Care; Physician Assistant
DX: A41.9 Sepsis, unspecified organism (principal); I50.23 Acute on chronic systolic (congestive) heart failure; I13.0 Hypertensive heart and chronic kidney disease with heart failure and stage 1 through stage 4 chronic kidney disease, or unspecified chronic kidney disease; Z68.44 Body mass index [BMI] 60.0-69.9, adult; J06.9 Acute upper respiratory infection, unspecified; E87.6 Hypokalemia; I48.91 Unspecified atrial fibrillation; J44.9 Chronic obstructive pulmonary disease, unspecified; G47.33 Obstructive sleep apnea (adult) (pediatric); E66.01 Morbid (severe) obesity due to excess calories; K21.9 Gastro-esophageal reflux disease without esophagitis; I25.5 Ischemic cardiomyopathy; E11.22 Type 2 diabetes mellitus with diabetic chronic kidney disease; N18.3 Chronic kidney disease, stage 3 (moderate); F32.9 Major depressive disorder, single episode, unspecified; M10.9 Gout, unspecified; I25.10 Atherosclerotic heart disease of native coronary artery without angina pectoris; I34.0 Nonrheumatic mitral (valve) insufficiency; E78.00 Pure hypercholesterolemia, unspecified; K80.20 Calculus of gallbladder without cholecystitis without obstruction; F17.210 Nicotine dependence, cigarettes, uncomplicated; J30.2 Other seasonal allergic rhinitis; D63.8 Anemia in other chronic diseases classified elsewhere; F43.10 Post-traumatic stress disorder, unspecified; T50.2X5A Adverse effect of carbonic-anhydrase inhibitors, benzothiadiazides and other diuretics, initial encounter; Y92.89 Other specified places as the place of occurrence of the external cause; I25.2 Old myocardial infarction; Z79.01 Long term (current) use of anticoagulants; Z95.0 Presence of cardiac pacemaker; Z88.1 Allergy status to other antibiotic agents; Z23 Encounter for immunization
CPT/HCPCS: 10779

== ENCOUNTER 2018-09-10 14:14 | Emergency (ER) | payer OTHER ==
[~2018-09-10] VITALS: Ht 167.6 cm; Wt 176.0 kg
[~2018-09-10 14:14] MED LIST changes: +CEFUROXIME500 MG PO
[2018-09-10] MEDS ORDERED: NOVOLOG FL100 UNIT/M SUBQ (14:23)
[2018-09-10] MEDS ORDERED: LANTUS100 UNIT/M SUBQ (14:23)
[2018-09-10 15:12] VITALS: BP 151/88
== END 2018-09-10 15:13 | disposition home or self-care (01) ==
LOC: ER 14:14
DX: L84 Corns and callosities (principal); J30.9 Allergic rhinitis, unspecified; I13.0 Hypertensive heart and chronic kidney disease with heart failure and stage 1 through stage 4 chronic kidney disease, or unspecified chronic kidney disease; E11.22 Type 2 diabetes mellitus with diabetic chronic kidney disease; N18.3 Chronic kidney disease, stage 3 (moderate); I50.9 Heart failure, unspecified; E11.621 Type 2 diabetes mellitus with foot ulcer; E66.01 Morbid (severe) obesity due to excess calories; J44.9 Chronic obstructive pulmonary disease, unspecified; G47.33 Obstructive sleep apnea (adult) (pediatric); E78.00 Pure hypercholesterolemia, unspecified; K21.9 Gastro-esophageal reflux disease without esophagitis; M10.9 Gout, unspecified; I25.10 Atherosclerotic heart disease of native coronary artery without angina pectoris; F17.210 Nicotine dependence, cigarettes, uncomplicated; Z68.44 Body mass index [BMI] 60.0-69.9, adult; Z88.1 Allergy status to other antibiotic agents; Z98.890 Other specified postprocedural states; Z79.4 Long term (current) use of insulin

== ENCOUNTER 2020-03-04 00:58 | Inpatient (IN) | payer OTHER ==
[~2020-03-04] VITALS: Ht 170.2 cm; Wt 190.1 kg
[2020-03-04] VITALS (8 sets, daily range): BP systolic 98–216; BP diastolic 50–180
[~2020-03-04 00:58] MED LIST changes: +LANTUS100 UNIT/M SUBQ
[2020-03-04 01:27] LABS: HEMATOCRIT 28.4 % (37.0-47.0); HEMOGLOBIN 9.1 gm/dL (12.0-15.0); MCH 25.7 pg (26.0-34.0); MCHC 32.1 g/dL (28.0-37.0); MCV 79.9 fL (80.0-100.0); PLATELET COUNT 141 thou/uL (150-400); RBC 3.56 mil/uL (4.20-5.00); RDW 25.4 % (10.5-14.5); WBC 5.7 thou/uL (4.0-11.0)
[2020-03-04 01:33] LABS: CALCIUM 8.3 mg/dL (8.5-10.1); CREATININE 2.3 mg/dL (0.6-1.0); POTASSIUM 4.3 mmol/L (3.5-5.1)
[2020-03-04 01:39] LABS: ALBUMIN 2.4 g/dL (3.4-5.0); TOTAL BILIRUBIN 1.5 mg/dL (0.2-1.0); TOTAL PROTEIN 7.5 g/dL (6.4-8.2)
[2020-03-04 01:56] LABS: URINE BILIRUBIN 1+ (Negative); URINE BLOOD 3+ (Negative); URINE CLARITY SL CLOUDY; URINE COLOR BROWN; URINE GLUCOSE-RANDOM* NEGATIVE (Negative); URINE KETONES NEGATIVE (Negative); URINE NITRITE-REFLEX NEGATIVE (Negative); URINE PROTEIN (DIPSTICK) 2+ (Negative); URINE SPECIFIC GRAVITY 1.015 (1.005-1.035); URINE UROBILINOGEN 0.2 E.U./dl (0.2-1.0)
[2020-03-04 02:00] LABS: ICTOTEST (BILI CONFIRMATORY) Positive (Negative); URINE LEUKOCYTES-REFLEX 3+ (Negative)
[2020-03-04 02:02] LABS: MUCUS None Seen strn/LPF (None Seen); SQUAMOUS None Seen /LPF (0-3)
[2020-03-04 02:03] LABS: BACTERIA-REFLEX >30 Many /HPF (None Seen); CASTS None Seen /LPF (None Seen); CRYSTALS None Seen /LPF (None Seen); URINE RBC >20 Many /HPF (0-2); URINE WBC-REFLEX >25 Many /HPF (0-5)
[2020-03-04 02:19] LABS: ABSOLUTE NEUTROPHILS 3.6 thou/uL (1.4-8.2); ANISOCYTOSIS 2+; LARGE PLATELETS OCCASIONAL
[2020-03-04] MEDS ORDERED: ACETAMINOPHEN325 MG PO (02:23)
[2020-03-04] MEDS ORDERED: MINTOX PLUS TA1 EACH PO (02:24)
[2020-03-04] MEDS ORDERED: MAGNESIUM HYDROXIDE PO (02:26)
[2020-03-04] MEDS ORDERED: BISACODYL10 MG RECTAL (02:27)
[2020-03-04] MEDS ORDERED: ENEMEEZ PLUS MIN5 ML RECTAL (02:28)
[2020-03-04] MEDS ORDERED: SENNA PLUS TAB1 EACH PO (02:29)
[2020-03-04] MEDS ORDERED: GLUTOSE GEL 1515 G1 PO (02:32)
[2020-03-04] MEDS ORDERED: [UNRECOGNIZED DRUG - OTHER] SUBQ (02:33)
[2020-03-04] MEDS ORDERED: DEXTROSE 5% (02:34)
[2020-03-04] MEDS ORDERED: DEXTROSE 50% (02:34)
[2020-03-04] MEDS ORDERED: WATER (02:34)
[2020-03-04] MEDS ORDERED: LACTULOSE10 GM/152 PO (02:35)
[2020-03-04] MEDS ORDERED: LEVEMIR100 UNIT/1 SUBQ (02:38)
[2020-03-04] MEDS ORDERED: TORSEMIDE20 MG PO (02:40)
[2020-03-04] MEDS ORDERED: LORATIDINE 10 M10 M1 PO (02:41)
[2020-03-04] MEDS ORDERED: VITAMIN B-121000 MC2 PO (02:42)
[2020-03-04] MEDS ORDERED: CHOLECALCIFEROL PO (02:43)
[2020-03-04] MEDS ORDERED: ALLOPURINOL 10100 M3 PO (02:44)
[2020-03-04] MEDS ORDERED: PROTONIX40 M2 PO (02:44)
[2020-03-04] MEDS ORDERED: PROAIR HFA8.5 GM INH (02:45)
[2020-03-04] MEDS ORDERED: NITROSTAT0.4 M1 SUBLING (02:46)
[2020-03-04] MEDS ORDERED: EMOLLIENT500 GM TOP (02:47)
[2020-03-04] MEDS ORDERED: TRIPLE ANTIBIO1 EAC1 TOP (02:52)
[2020-03-04] MEDS ORDERED: DAKINS (02:53)
[2020-03-04] MEDS ORDERED: SLOW FE142 MG PO (02:53)
[2020-03-04] MEDS ORDERED: VOLTAREN GEL 1100 G1 TOP (02:54)
[2020-03-04] MEDS ORDERED: MICONAZOLE 2% TOP (02:55)
--- NOTE | 2020-03-04 03:01 | NUR ---
UPDATED NURSING STAFF FROM REHAB FACILITY
--- NOTE | 2020-03-04 03:42 | NUR ---
TRIED TO CALL REPORT. NURSE IS UNAVAILABLE.
[2020-03-04 06:40] LABS: BE(vivo) -1.7 mmol/L (-2 to +3); HCO3 22.3 mmol/L (22.0-26.0); PCO2 35.2 mmHg (35.0-45.0); PO2 118.7 mmHg (80.0-100.0); pH 7.419 (7.360-7.450); sO2 98.4 % (92.0-98.0)
--- NOTE | 2020-03-04 07:52 | NUR ---
PT ADMITTED FROM ER TO 3 WEST AROUND 0430 AM. ALERT AND ORIENTED X4. SHE FALLS BACK ASLEEP QUICKLY.SHE'S DROWSY AND LETHARGIC. ABGS DONE. CPAP ORDERED. CONTINUOUS PULSE OX ORDERED. RT STATED HE IS ON HIS WAY WITH THEM. PICTURES OF WOUNDS IN PERIRECTAL AREA TAKEN AND OF ABDOMINAL FOLD AREA. WOUND CARE CONSULT CALLED TO EMILY AT DR VALENTIN VOSS ANSWERING SERVICE. PT WILL NEED BARIATRIC BED. DAY SHIFT NOTIFIED. NS AT 75 INFUSING RIGHT HAND WITHOUT DIFFICULTY.
--- NOTE | 2020-03-04 10:41 | NUR ---
PT ASSESSED, VSS, 02 SAT 100% ON 2.5L NC, DECREASED TO 2L, SAT AT 99%, WILL MONITOR AND DECREASE, REVIEWED POC WITH PT, SHE VERBALIZED UNDERSTANDING, PT DROWSY BUT EASILY AROUSABLE, CALL LIGHT REVIEWED, LYING ON CHEST, PT'S GOWN CHANGED, AT BREAKFAST, AWAITING WOUND CARE, KYLE BED ORDERED, WILL MONITOR
--- NOTE | 2020-03-04 12:18 | NUR ---
INITIAL ASSESSMENT: AMANDA reviewed chart and spoke with nursing. Pt was admitted from [facility] due to AMS/Fever. Pt placed in Enhanced Isolation to r/o COVID-19. Pt's test is negative. Pt was febrile upon admission and is currently on IV abx. Wound care consulted. AMANDA spoke with pt via phone. Introduced role of SW. Pt appears to be alert/orientated x 4. Pt reports that she has been at [facility] for about two weeks[facility] due to perirectal abscess. Pt confirms her plan is to return to [facility] upon discharge. Pt states that she normally lives at home with family. No use of DME or O2. Pt has used [facility] in the past for HH. Pt's PCP is Dr. Cinthia Markham at [facility]. Awaiting diana wood at this time. SW faxed clinical info and COVID test results to [facility] for review. Discussed with [facility] liaison that they only require the one negative COVID test for pt to return. Will need insurance authorization for pt to return to [facility]. AMANDA is following to assist as needed with discharge planning.
--- NOTE | 2020-03-04 13:13 | NUR ---
pt had one negative covid result, second test was done and sent to lab, waiting results
[2020-03-05 01:10] LABS: GLYCOHEMOGLOBIN (HGB A1C) 8.6 % (4.8-5.6)
[2020-03-05 03:14] VITALS: BP 118/71
--- NOTE | 2020-03-05 05:53 | NUR ---
ASSUMED PT CARE AROUND 1930. AXOX4. VSS. D/C ISO PER ID TEAM AFTER 2ND NEGATIVE COVID-19. DRESSINGS TO PERIRECTAL AND L POSTERIOR THIGH COMPLETED. NO S/S ACUTE DISTRESS NOTED OR REPORTED AT THIS TIME. WILL CONT TO MONITOR FOR ANY CHANGES IN CONDITION.
[2020-03-05 06:01] LABS: HEMATOCRIT 28.5 % (37.0-47.0); MCH 25.7 pg (26.0-34.0); MCHC 31.7 g/dL (28.0-37.0); MCV 81.2 fL (80.0-100.0); RBC 3.5 mil/uL (4.20-5.00); RDW 25.4 % (10.5-14.5); WBC 6.3 thou/uL (4.0-11.0)
[2020-03-05 06:55] LABS: CALCIUM 8.2 mg/dL (8.5-10.1); CREATININE 2.2 mg/dL (0.6-1.0)
[2020-03-05 07:29] VITALS: BP 108/77
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
[2020-03-05 11:06] VITALS: BP 137/75
--- NOTE | 2020-03-05 13:37 | NUR ---
AMANDA reviewed chart and spoke with nursing. Pt has had two negative COVID tests. Enhanced Isolation precautions discontinued. Pt to transfer to CCU when a bed is available. Awaiting therapy evals at this time. Pt is on IV abx. AMANDA faxed updated clinical info/COVID test results to [facility] for review. Will fax therapy evals to [facility] when available. AMANDA is following to assist as needed with discharge planning.
[2020-03-05 17:24] VITALS: BP 110/71
[2020-03-05 21:20] VITALS: BP 126/83
--- NOTE | 2020-03-06 01:02 | NUR ---
ASSUMED PT CARE ABOUT 1920. PT IS A&O X 4. PT HAS A BERIATRIC BED IN HER ROOM. PT HAS A RIGHT HAND IV WITH FLUIDS RUNNING AT 75 MLS/HR. PT TOOK SCHEDULED MEDS. PT HAD HARD DARK BROWN (BALLS) STOOL. PT HAS TWO WOUNDS, ONE ON HER INNER LEFT THIGH AND A LARGER ON ECTOR RECTAL. PT SLEEPS WITH CPAP. ENCOURAGED FLUIDS. RESTING IN THE ROOM. WILL CONTINUE TO MONITOR.
[2020-03-06 04:40] VITALS: BP 111/81
[2020-03-06 06:35] LABS: HEMATOCRIT 29.2 % (37.0-47.0); HEMOGLOBIN 9.2 gm/dL (12.0-15.0); MCH 25.4 pg (26.0-34.0); MCHC 31.5 g/dL (28.0-37.0); MCV 80.5 fL (80.0-100.0); RBC 3.63 mil/uL (4.20-5.00); RDW 24.3 % (10.5-14.5); WBC 6.5 thou/uL (4.0-11.0)
[2020-03-06 06:42] LABS: CALCIUM 8.8 mg/dL (8.5-10.1); CREATININE 2.1 mg/dL (0.6-1.0); POTASSIUM 3.8 mmol/L (3.5-5.1)
[2020-03-06 07:27] VITALS: BP 120/81
--- NOTE | 2020-03-06 13:09 | NUR ---
PT CARE ASSUMED AT 0700. A&Ox4 WITH EPISODES OF FORGETFULNESS. PT IV IS PATENT WITH NO REDNESS OR EDEMA, FLUIDS INFUSING. PT WAS NOT ABLE TO DO PT IN THE AM WILL TRY AGAIN IN THE AFTERNOON. WOUND PICTURES TAKEN. ACHS WITH LOW SLIDING SCALE ON BOARD. PAIN NOT TOLERATED WELL WITH PAIN MEDICATION. PT COMPLAINING OF A HEADACHE. CPAP AT NIGHT ON ROOM AIR DURING THE DAY. PT HAS A PACEMAKER. PT WILL NEED COVID TEST WITHIN 48HRS OF DISCHARGING FOR [facility] [facility]. PT IS IN A GERIATRIC BED. NEW WOUNDS FOUND UNDER THE R. PANUS SKINTEAR. ANOTHER ON L. INNER THIGH NEW WOUND DIME SZ. PICTURE TAKEN. FALL PROTOCOL IN PLACE. WILL CONTINUE TO MONITOR.
--- NOTE | 2020-03-06 14:46 | NUR ---
CM REQUESTED DC PRESS WORKER HELPER FAX UPDATESD CLINICAL TO [facility] AND INDICATED ANTICPATED DC WEDNESDAY. CM ATTEMPTED PC TO PT TO CONVEY THAT BUT PT DIDN'T ANSWER. CM TO FOLLOW INDICATED WITH DC PLANNING.
[2020-03-06 16:16] VITALS: BP 90/55
--- NOTE | 2020-03-06 16:46 | NUR ---
FAXED CLINICAL UPDATE TO [facility] RECEIVED CONFIRMATION AND LEFT MSG WITH POPPY IN ADM. DP TO FOLLOW.
[2020-03-06 19:35] VITALS: BP 123/67
[2020-03-07 03:00] VITALS: BP 104/69
--- NOTE | 2020-03-07 04:29 | NUR ---
Assumed pt care at 1900. A/OX4,VSS. Denies pain on assessment. Up with AX1,GB/RW to BSC. Edema noted on BLE,encouraged to keep extremities elevated but hesistant to. On a bariatric bed. Dsgs to left buttocks/thigh/abd in place. PIV patent on right wrist,continues on IV ABTs. Resting quietly at this time w/o any distress noted,BIPAP in place. AFIB on the monitor. Will continue to monitor pt.
[2020-03-07 07:35] VITALS: BP 112/53
[2020-03-07 09:24] LABS: HEMATOCRIT 31.7 % (37.0-47.0); HEMOGLOBIN 10.4 gm/dL (12.0-15.0); MCH 26.6 pg (26.0-34.0); MCHC 32.9 g/dL (28.0-37.0); RBC 3.91 mil/uL (4.20-5.00); RDW 24.6 % (10.5-14.5); WBC 6.2 thou/uL (4.0-11.0)
[2020-03-07 09:42] LABS: CALCIUM 9.1 mg/dL (8.5-10.1)
--- NOTE | 2020-03-07 15:49 | NUR ---
NIA SPOKE TERRELL FLEMING IN ADMISSIONS AT [facility] THEY CAN TAKE PT BACK ONCE MEDICALLY STABLE. CM INDICATD LIKELY DC WED OR SAT. NIA ATTEMPTED PC TO PT'S ROOM AGAIN TODAY TO INFORM HER THAT [facility] CAN ACCEPT HER BACK ONCE MEDICALLY STABLE LIKELY WEDNESDAY OR WEDNESDAY PT DIDN'T ANSWER. CM CALLED AND NOTIFIED PT'S SISTER.
[2020-03-07 15:55] VITALS: BP 125/81
[2020-03-07 16:24] LABS: CALCIUM 8.6 mg/dL (8.5-10.1)
[2020-03-07 16:25] LABS: POTASSIUM 5.3 mmol/L (3.5-5.1)
--- NOTE | 2020-03-07 20:13 | NUR ---
Assumed pt care at 7am.Pt in bed resting without c/o.Assessment completed.vss. Pt tolerated meds and diet.Dr Lombardo here,order noted.Pt transfered to chair by therapist after breakfast and was there for over 2 hours before going back to bed.Fall bundle in place.No c/o pain or soa.Will continue to monitor.
[2020-03-07 20:50] VITALS: BP 126/72
--- NOTE | 2020-03-08 02:56 | NUR ---
patient aox4 makes needs known. patient needs maximum assistance with adl, bed mobility, transfer and toileting. patient denied pain or discomfort. patient encouraged fluids. ble elevated d/t +3 edema to ble. fall precaution in place. patient in bed asleep at this time breathing regular and unlaboured.
[2020-03-08 08:15] VITALS: BP 138/68
--- NOTE | 2020-03-08 10:01 | NUR ---
CARE TEAM INDICATED THAT PT WILL NEED 14 DAYS OF IV ABX UPON DC. PT IS TO HAVE PICC PLACED THIS DAY. NIA SPOKE WITH TINO IN ADMISSIONS AT [facility] AND SHE INDICATED PT'S INSURANCE COMPANY WERE WANTING TO KNOW IF SHE WAS TO BE DISCHARGING ON IV ABX AND HOW FAR SHE HAD WALKED. NIA INFORMED HER AND FAXED OVER CLINICAL. SHE INDICATED THAT SHE WILL CONVEY IT AND HOPEFULL GET AUTH TODAY FOR PT'S RETURN. NIA HAD NOTIFIED PT'S SISIER OF POSSIBLE DC YESTERDAY. CM TO FOLLOW INDICATED WITH DC PLANNING.
[2020-03-08] MEDS ORDERED: ERTAPENEM1 GM IV (12:44)
--- NOTE | 2020-03-08 14:30 | NUR ---
SERGIO DENIED AUTH FOR PT TO GO TO [facility] TODAY. CM PROVIDED PHYSICIAN FOR INFO FOR [facility] CM NOT CERTAIN IF IT WAS CALLED OR NOT PHYSICIAN INDICATED THAT ASSIST PT IN LOOKING FOR SNF. CM SPOKE WITH PT AND INFORMED HER OF DENIAL. SHE WAS UPSET ALL HER STUFF IS STILL OVER AT [facility] SHE HAD ADMITED FROM THERE. SHE ASKD THAT REFERRALS BE SENT TO [facility] AND TO [facility] FOR REVIEW FOR POSSIBLE ADMISSION. REFERRALS SENT AWAITING RESPONSES. CM TO FOLLOW INDICATED WITH DC PLANNING.
--- NOTE | 2020-03-08 15:59 | NUR ---
FAXED REFERRAL TO [facility] SPOKE WITH DOROTEO IN ADM SHE RECEIVED REFERRAL BUT WILL NOT HAVE A BED AVAILABLE FOR 1-2 WEEKS. FAXED REFERRAL TO [facility] SPOKE WITH SANDRA IN ADM SHE RECEIVED REFERRAL AND WILL REVIEW. DP TO FOLLOW.
[2020-03-08 16:21] VITALS: BP 115/72
--- NOTE | 2020-03-08 18:30 | NUR ---
PT ASSESSED AT START OF SHIFT. SMILING, HAPPY STATES FEELING BETTER. SAT UP IN THE W/C FOR SEVERAL HOURS. NO C/O PAIN. EATING AND DRINKING WELL. PLAN FOR PICC LINE PLACEMENT BEFORE DISCHARGE WHEN PLACE AVAILABLE. PERMIT SIGNED.
[2020-03-08 20:35] VITALS: BP 127/89
--- NOTE | 2020-03-09 02:32 | NUR ---
PATIENT AOX4 MAKES NEEDS KNOWN. PATIENT IS CALM AND COOPERATIVE WITH CARE AND MEDS. NEW ORDER TO DISCONTINUE TELE. PATIENT INNER THIGH, RECTAL ABCESS, ABD WOUND DRESSINGS ARE C/D/I. PATIENT NEEDS MAXIMUM ASSISTANCE WITH ADL, BED MOBILITY TRANSFER AND TOILETING. FALL PRECAUTIPN IN PLACE. PATIENT IN BED ASLEEP AT THIS TIME BREATHING REGULAR AND UNLABOURED.
[2020-03-09 07:50] VITALS: BP 125/81
[2020-03-09 15:36] VITALS: BP 146/84
--- NOTE | 2020-03-09 19:41 | NUR ---
Assumed pt care at 7am.Pt in and out of bed with one person assist.Assessment completed.vss.Dr Lombardo here early this shift, informed pt that she was denied by her insurance to dc to rehab facility.Pt was very upset about this news. Assisted with tray setup at all meals.Good appetite noted.Pt tolerated meds . No verbal complaints.Fall bundle in place for sfety precaution.Will continue to monitor.
[2020-03-09 21:39] VITALS: BP 147/76
[2020-03-10 08:14] VITALS: BP 119/73
--- NOTE | 2020-03-10 08:44 | NUR ---
RECIEVED CARE OF THIS PATIENT AT 1900. PATIENT ALERT AD ORIENTED X4. UP TO BSC WITH ASSIST OF 1. NEEDS HELP LIFTING LEGS INTO BED. HAS INSTDRY UNER APNNUS. ACCUCHECK WAS 145, NO SS COVERAGE NEEDED. HAS WOUNDS ON SEVERAL PARTS OF HER BODY. DENIES PAIN. SLEPT LITTLE THE DIRECTOR LOAN.
--- NOTE | 2020-03-10 14:41 | NUR ---
CONSULTED TO PLACE A LINE- DR. KASHMIR MONCADA WITH A MIDLINE ACCESS. ORDER AND CONSENT NOTED. THE PROCEDURE WAS DISCUSSED WITH THE PATIENT AND VERBAL CONSENT OBTAINED. THE RIGHT CEPHALIC WAS THE ONLY VEIN AVAILABLE AND WAS DEEP. A #4F POWER MIDLINE WAS PLACED ON THE 2ND ATTEMPT. +BR +FLUSH
[2020-03-10 15:31] VITALS: BP 119/80
[2020-03-10 19:20] VITALS: BP 114/72
--- NOTE | 2020-03-10 20:50 | NUR ---
ASSUMED PT CARE AT 0700. ALERT X ORIENTED X 4. ON ROOM AIR DURING DAY AND AT NIGHT ON CPAP. ACCUCHECKS. 1 PERSON ASST. IV RT WRIST AND MIDLINE ON RT AC.APPLY INSTADRY TO PREVENT SKIN BREAK ON FOLDS. HAD A BM TODAY.CALL LIGHT WITHIN REACH. WILL CALL FOR HELP. FALL PRECT IN PLACE. SHIFT REPORT GIVEN TO NIGHT NURSE.
--- NOTE | 2020-03-11 01:13 | NUR ---
ASSUMED CARE AT APPROXIMATELY 1900. PT IS A/O X4 . INTERDRY TO PANNIS AND GROIN AREA REPLACED WITH NEW. PT DENIES ANY C/O PAIN BUT DOES CONSISTENTLY NEED REPOSITIONING SHE STATES SHE ISN'T COMFORTABLE OFTEN. PT GETS UP WITH ASSIST X1 WITH WALKER AND GB TO THE BSC. FALL PRECAUTIONS ARE IN PLACE, CALL LIGHT IS WITHIN REACH. WILL CONTINUE TO MONITOR
[2020-03-11 07:15] VITALS: BP 120/78
--- NOTE | 2020-03-11 13:23 | NUR ---
Followup: pt eating 90-100% of meals consistently and drinking glucerna shakes. Protein needs being met for wound care requirements. New wts show up 17 lb with a standing wt now recorded. BG borderline elevated, hx diabetes and on insulin dosing so will add carb controlled to current diet order and control caloric and carb consumption for extreme class III obesity. Change nutrition status to low risk
[2020-03-11 15:12] VITALS: BP 107/79
--- NOTE | 2020-03-11 15:41 | NUR ---
CLINICAL UPDATE SENT TO [facility] THIS AM. THEY INDICATED THAT THEY HADN'T ACCEPTED PT MEDICALLY YET. CM SPOKE WITH PT THIS AM AND SHE INDICATED SHE HAD CALLED HER INSURANCE TODAY AND THEY SAID THAT PHYSICIAN COULD DO [facility] AND WOULD RECONSIDER AND THAT SHE WANTED THAT DONE SHE DIDN'T WANT TO GO ANYWHERE ELSE. DR. MARLOW CALLED [facility] AND DENIAL FOR ACUTE REHAB WAS UPHELD. [facility] INDICATED THEY CAN ACCEPT AND THEY SUBMITTED FOR AUTH. CM NOTIFIED PT. AWAITING INSURANCE AUTH FOR SKILLED AT [facility].
[2020-03-11 20:26] VITALS: BP 113/68
--- NOTE | 2020-03-11 20:49 | NUR ---
ASSUMED PT CARE AT 0700. PT ALERT X ORIENTED X 4. ON ROOM AIR DURING DAY AND BIPAP AT NIGHT. IV RT WRIST AND RT ARM MIDLINE. HAD 2 BM TODAY. WORKED WELL WITH PT AND OT. NO C/O PAIN. CALL LIGHT IN REACH. FALL PRECT IN PLACE. WILL CALL FOR HELP. SHIFT REPORT GIVEN TO NIGHT NURSE.
--- NOTE | 2020-03-12 02:54 | NUR ---
ASSUMED CARE OF PT AT 1900. PT IS A/O X4. C/O PAIN GENERALIZED. PRN PAIN MEDICATION GIVEN DIRECTED. PT IS UP X1 WITH WALKER AND GAITBELT TO THE [facility]. AT THIS TIME PT IS LYING IN HER BED AND APPEARS TO BE SLEEPING. FALL PRECAUTIONS ARE IN PLACE, CALL LIGHT IS WITHIN REACH. WILL CONTINUE TO MONIOR.
[2020-03-12 08:11] VITALS: BP 122/72
--- NOTE | 2020-03-12 08:46 | NUR ---
ATTEMPTED TO START AN EXPEDIATED APPEAL FOR ACUTE REHAB FOR PT [phone] BUT WAS TOLD BY [employer] THAT WE MUST HAVE THE DENAIL LETTER FIRST WHICH MAY TAKE UP TO 48HRS TO RECEIVE BEFORE PROCESS CAN BE STARTED.
--- NOTE | 2020-03-12 08:53 | NUR ---
UR NURSE CALLED YESTERDAY AFTERNOON TO INITIATE EXPIDITED APPEAL AND WAS TOLD THAT IT COULDN'T BE DONE UNTIL DENIAL LETTER HAD BEEN RECEIVED THERE WERE REFERENCE NUMBERS THAT WERE NEEDED ON LETTER. STILL AWAITING AUTH FOR SKILLED AT [facility]. CM TO INFORM PT. CM TO FOLLOW INDICATED WITH DC PLANNING.
--- NOTE | 2020-03-12 09:51 | NUR ---
CM SPOKE WITH PT THIS AM AND INDICATED THAT STAFF HAD ATTEMPTED TO INITIATE EXPIDATED APPEAL YESTERDAY BUT THAT WE CAN'T PROCEED WITH IT UNTIL DENIAL LETTER IS RECEIVED AND THAT CAN TAKE UP TO 48HRS. CM INDICATED THAT BASED ON PT NOTES IT ISN'T LIKELY THAT APPEAL WOULD BE WON. AUTH HAD BEEN RECEIVED FOR PT TO GO TO [facility]. CM NOTIFIED PT AND SHE INDICATED THAT SHE WAS AGREEABLE TO GOING TO [facility] TODAY. SHE INDICATED SHE WAS GOING TO HAVE HER SONS COLLECT HER BELONGINGS FROM [facility]. [facility] TRANSPORT ARRANGED FOR 1400. CHART COPY ORDERED. ORDERS TO BE FAXED ONCE COMPLETED. REPORT TO BE CALLED TO . PT'S SISTER NOTIFIED. NO OTHER CM INTERVENTION INDCIATED CASE CLOSED.
--- NOTE | 2020-03-12 13:41 | NUR ---
ASSUMED CARE OF PATIENT AT SHIFT CHANGE. ASSESSMENT CHARTED. MEDICATIONS GIVEN PER OCT. VSS. PATIENT SEEN RESTING COMFORTABLY AND REQUESTED A SPRITE. PATIENT DENIES PAIN AT THIS TIME. PATIENT UP X 1 TO [facility]. WOUND CARE DONE THIS AM BY SEBASTIAN WOUND RN. PATIENT RECIEVED A BATH TODAY. PATIENT TO BE TRANSPORTED OUT TO [facility] THIS AFTERNOON AT 1400. REPORT CALLED TO NURSE VALADEZ AT 1340. PATIENT VOICES NO OTHER NEEDS. FALL PRECAUTIONS IN PLACE. WILL CONTINUE TO MONITOR AND FOLLOW POC.
--- NOTE | 2020-03-12 18:13 | NUR ---
I AGREE WITH NURSING NOTE AND NURSING ASSESSMENT DONE BY ROSARIO/FUEL HOUSE ATTENDANT.
== END 2020-03-12 14:04 | DRG 871 ==
LOC: ER 00:58 → 3W 02:56 → EROBS 02:56 → 3W 04:00 → 4W 03-05 16:52
PROVIDERS: Emergency Medicine; Hospitalist; Nurse Practitioner Family; ADMIT Internal Medicine; ATTEND Internal Medicine
PROC: 5A09457 Assistance with Respiratory Ventilation, 24-96 Consecutive Hours, Continuous Positive Airway Pressure (ICD-10-PCS; 2020-03-05)
PROC: 05HD33Z Insertion of Infusion Device into Right Cephalic Vein, Percutaneous Approach (ICD-10-PCS; principal; 2020-03-10)
DX: A41.51 Sepsis due to Escherichia coli [E. coli] (principal); L89.223 Pressure ulcer of left hip, stage 3; G93.41 Metabolic encephalopathy; E43 Unspecified severe protein-calorie malnutrition; I13.0 Hypertensive heart and chronic kidney disease with heart failure and stage 1 through stage 4 chronic kidney disease, or unspecified chronic kidney disease; I48.21 Permanent atrial fibrillation; N12 Tubulo-interstitial nephritis, not specified as acute or chronic; K61.1 Rectal abscess; Z16.24 Resistance to multiple antibiotics; I50.9 Heart failure, unspecified; I25.5 Ischemic cardiomyopathy; E66.01 Morbid (severe) obesity due to excess calories; Z20.828 Contact with and (suspected) exposure to other viral communicable diseases; J44.9 Chronic obstructive pulmonary disease, unspecified; F41.9 Anxiety disorder, unspecified; G47.33 Obstructive sleep apnea (adult) (pediatric); E78.00 Pure hypercholesterolemia, unspecified; K21.9 Gastro-esophageal reflux disease without esophagitis; N18.3 Chronic kidney disease, stage 3 (moderate); E11.22 Type 2 diabetes mellitus with diabetic chronic kidney disease; F32.9 Major depressive disorder, single episode, unspecified; F10.10 Alcohol abuse, uncomplicated; S30.811A Abrasion of abdominal wall, initial encounter; B96.20 Unspecified Escherichia coli [E. coli] as the cause of diseases classified elsewhere; S31.119A Laceration without foreign body of abdominal wall, unspecified quadrant without penetration into peritoneal cavity, initial encounter; I25.10 Atherosclerotic heart disease of native coronary artery without angina pectoris; M10.9 Gout, unspecified; F43.10 Post-traumatic stress disorder, unspecified; Z95.0 Presence of cardiac pacemaker; I25.2 Old myocardial infarction; Z87.81 Personal history of (healed) traumatic fracture; Z91.14 Patient's other noncompliance with medication regimen; Z88.1 Allergy status to other antibiotic agents; Z87.891 Personal history of nicotine dependence; Z71.41 Alcohol abuse counseling and surveillance of alcoholic; X58.XXXA Exposure to other specified factors, initial encounter; Y93.89 Activity, other specified; Y92.89 Other specified places as the place of occurrence of the external cause; Y99.8 Other external cause status
CPT/HCPCS: 10040; 10045; 10879; 27000

== ENCOUNTER 2020-03-13 02:27 | Inpatient (IN) | payer OTHER ==
[~2020-03-13] VITALS: Ht 170.2 cm; Wt 196.5 kg
--- NOTE | ~2020-03-13 | EMS ---
[facility] [address] [place] [address] EMS Patient Care Report Name: JOHN SPARKS Room #: 170-6 ADM IN ..#: [id number] Admission: 03/13/20 Attend Phys: Enrrique Lee MD Discharge: Date of : 66 Report #: [id number] THIS REPORT FOR: //name// Report Transmitted: 03/13/2020 04:04 EMS Care Summary [facility] MED-ACT Incident [id number] @ 03/13/2020 01:47 Incident Location [address] [place] [address] Patient JOHN SPARKS Female, 49 Years 1970 Patient Address [id number] [place] [address] [place] [address] Patient History Other,Congestive Heart Failure (CHF),Chronic Obstructive Pulmonary Disease (COPD),Diabetes, Patient Allergies No known allergies, Patient Medications Magnesium Peroxide, Gabapentin, Acetaminophen, Glucagon, Albuterol, Chief Complaint CHF Disposition Transported No Lights/[place] Dispatch Reason Breathing Problem Transported To [facility] Narrative [id number] dispatched for a 49 y/o female, shortness of breath at [place]. [facility] [address] [place] [address] EMS Patient Care Report Name: JOHN SPARKS Room #: 170-6 ADM IN Liana#: [id number] Admission: 03/13/20 Attend Phys: Enrrique Lee MD Discharge: Date of : 66 Report #: [id number] Arrived on scene, pt contact made in pt's room, pt sitting upright in bed upon our arrival. Pt is alert and oriented with a GCS of 15. Pt states she started to have a sudden onset of SOB sonia 30 minutes ago. New resident of facility, came to facility 1 day prior after a bout with sepsis. Assessment and vitals documented above, notable for excellent sats and clear LS, despite pt's distress. 4 lead revealed sinus rhythm. Moved pt onto cot via 2 person assist and pivot, secured to cot where pt requested to go from sitting to semi olvera's position. Placed pt on O2 via NC at 3 LPM as a precaution due to positional change. Moved to back of unit, obtained 12 lead which was unremarkable and started transport to [facility] per pt request. Secondary assessment and vitals documented above, obtained a BG, no changes to pt's condition enroute. Radio report given to [facility] 7 min FURNITURE STAINER. Arrived at [facility], moved pt inside via cot transport. Onto ER bed via 4 person lift and move. Gave report to receiving RN and transferred care. Paramjit Mo Ent Surgeon Initial Vitals @02:19P: 139,BP: 158/82,SpO2: 100, @02:09P: 146,SpO2: 100, @02:06P: 151,SpO2: 100, @01:55P: 147,BP: 133/87,SpO2: 100, @01:57P: 143,SpO2: 100, @01:55P: 153, @02:12P: 149,R: 20,Pain: 0/10,GCS: 15,Glucose: 225,SpO2: 99, Assessments @02:10MENTAL:Person Oriented,Time Oriented,Place Oriented,Event Oriented,SKIN:HEENT:Head/Face: No Abnormalities,LUNG SOUNDS:General: No Abnormalities,Left Upper: No Abnormalities,Right Upper: No Abnormalities,Left Lower: No Abnormalities,Right Lower: No Abnormalities,ABDOMEN:General: No Abnormalities,Left Upper: No Abnormalities,Right Upper: No Abnormalities,Left Lower: No Abnormalities,Right Lower: No Abnormalities,PELVIS//GI:No Abnormalities,EXTREMITIES:Left Leg: Edema,Right Leg: Edema,Left Arm: No Abnormalities,Right Arm: No Abnormalities,PULSE:Radial: 2+ Normal,Pedal: 2+ Normal,NEURO:No Abnormalities,@02:17MENTAL:Time Oriented,Person Oriented,Event Oriented,Place Oriented,SKIN:HEENT:Head/Face: No Abnormalities,Neck/Airway: No Abnormalities,LUNG SOUNDS:General: No Abnormalities,Left Upper: No Abnormalities,Right Upper: No Abnormalities,Left Lower: No Abnormalities,Right Lower: No Abnormalities,ABDOMEN:General: No Abnormalities,Left Upper: No Abnormalities,Right Upper: No Abnormalities,Left Lower: No Abnormalities,Right Lower: No Abnormalities,PELVIS//GI:No Abnormalities,EXTREMITIES:Left Leg: Edema,Right Leg: Edema,Left Arm: No Abnormalities,Right Arm: No Abnormalities,PULSE:NEURO:No Abnormalities, [address] [address] EMS Patient Care Report Name: JOHN SPARKS Room #: 170-6 ADM IN .R.#: [id number] Admission: 03/13/20 Attend Phys: Enrrique Lee MD Discharge: Date of : 66 Report #: [id number] Impression Congestive heart failure (CHF) Procedures @02:17ALS AssessmentResponse: UnchangedSucceeded@02:08Oxygen FlowRate: 3 Device: Nasal Cannula (NC) Response: UnchangedSucceeded@02:073-Lead ECGResponse: UnchangedSucceeded@02:0912-Lead ECG Timeline 01:46,Call Received 01:46,Psap Call 01:47,Dispatched 01:48,En Route 01:51,On Scene 01:54,At Patient 01:55,BP: 133/87 M,PULSE: 147,RR: R,SPO2: 100 Ox,ETCO2: ,BG: ,PAIN: ,GCS: , 01:55,BP: / M,PULSE: 153,RR: R,SPO2: Ox,ETCO2: ,BG: ,PAIN: ,GCS: , 01:57,BP: / M,PULSE: 143,RR: R,SPO2: 100 Ox,ETCO2: ,BG: ,PAIN: ,GCS: , 02:06,BP: / M,PULSE: 151,RR: R,SPO2: 100 Ox,ETCO2: ,BG: ,PAIN: ,GCS: , 02:07,3-Lead ECG,Response: UnchangedSucceeded, 02:08,Oxygen FlowRate: 3 Device: Nasal Cannula (NC) Response: UnchangedSucceeded, 02:09,12-Lead ECG, 02:09,BP: / M,PULSE: 146,RR: R,SPO2: 100 Ox,ETCO2: ,BG: ,PAIN: ,GCS: , 02:10,Depart Scene 02:12,BP: / M,PULSE: 149,RR: 20 R,SPO2: 99 Ox,ETCO2: ,B,PAIN: 0,GCS: 15, 02:17,ALS Assessment,Response: UnchangedSucceeded, 02:19,BP: 158/82 M,PULSE: 139,RR: R,SPO2: 100 Ox,ETCO2: ,BG: ,PAIN: ,GCS: , 02:20,At Destination 02:40,Call Closed Disclaimer v1.1 Copyright 2020 [employer] This EMS Care Summary contains data elements from the applicable legal record (which may be displayed differently). It is designed to provide pertinent information for the following purposes: continuity of care, clinical quality, and state data reporting. The complete legal record is available to ED staff and administrators of the receiving hospital in [employer] Patient Tracker. All data is provided "as is."
--- NOTE | ~2020-03-13 | EMS ---
[facility] [address] [place] [address] EMS Patient Care Report Name: JOHN SPARKS Room #: REG NISH Gaines#: [id number] Admission: 03/13/20 Attend Phys: Discharge: Date of : 66 Report #: [id number] THIS REPORT FOR: //name// Report Transmitted: 03/13/2020 03:[address] [facility] MED-ACT Incident [id number] @ 03/13/2020 01:47 Incident Location [address] [place] [address] Patient JOHN SPARKS Female, 49 Years 1970 Patient Address [id number] [place] [address] [place] [address] Patient History Other,Congestive Heart Failure (CHF),Chronic Obstructive Pulmonary Disease (COPD),Diabetes, Patient Allergies No known allergies, Patient Medications Magnesium Peroxide, Gabapentin, Acetaminophen, Glucagon, Albuterol, Chief Complaint CHF Disposition Transported No Lights/[place] Dispatch Reason Breathing Problem Transported To [facility] Narrative [id number] dispatched for a 49 y/o female, shortness of breath at [place]. [facility] [address] [place] [address] EMS Patient Care Report Name: JOHN SPARKS Room #: REG Jazmín.#: [id number] Admission: 03/13/20 Attend Phys: Discharge: Date of : 66 Report #: [id number] Arrived on scene, pt contact made in pt's room, pt sitting upright in bed upon our arrival. Pt is alert and oriented with a GCS of 15. Pt states she started to have a sudden onset of SOB sonia 30 minutes ago. New resident of facility, came to facility 1 day prior after a bout with sepsis. Assessment and vitals documented above, notable for excellent sats and clear LS, despite pt's distress. 4 lead revealed sinus rhythm. Moved pt onto cot via 2 person assist and pivot, secured to cot where pt requested to go from sitting to semi olvera's position. Placed pt on O2 via NC at 3 LPM as a precaution due to positional change. Moved to back of unit, obtained 12 lead which was unremarkable and started transport to [facility] per pt request. Secondary assessment and vitals documented above, obtained a BG, no changes to pt's condition enroute. Radio report given to [facility] 7 min NAVAL AIRCREWMAN MECHANICAL. Arrived at [facility], moved pt inside via cot transport. Onto ER bed via 4 person lift and move. Gave report to receiving RN and transferred care. Paramjit Mo Rental Sales Associate Initial Vitals @02:19P: 139,BP: 158/82,SpO2: 100, @02:09P: 146,SpO2: 100, @02:06P: 151,SpO2: 100, @01:55P: 147,BP: 133/87,SpO2: 100, @01:57P: 143,SpO2: 100, @01:55P: 153, @02:12P: 149,R: 20,Pain: 0/10,GCS: 15,Glucose: 225,SpO2: 99, Assessments @02:10MENTAL:Person Oriented,Time Oriented,Place Oriented,Event Oriented,SKIN:HEENT:Head/Face: No Abnormalities,LUNG SOUNDS:General: No Abnormalities,Left Upper: No Abnormalities,Right Upper: No Abnormalities,Left Lower: No Abnormalities,Right Lower: No Abnormalities,ABDOMEN:General: No Abnormalities,Left Upper: No Abnormalities,Right Upper: No Abnormalities,Left Lower: No Abnormalities,Right Lower: No Abnormalities,PELVIS//GI:No Abnormalities,EXTREMITIES:Left Leg: Edema,Right Leg: Edema,Left Arm: No Abnormalities,Right Arm: No Abnormalities,PULSE:Radial: 2+ Normal,Pedal: 2+ Normal,NEURO:No Abnormalities,@02:17MENTAL:Time Oriented,Person Oriented,Event Oriented,Place Oriented,SKIN:HEENT:Head/Face: No Abnormalities,Neck/Airway: No Abnormalities,LUNG SOUNDS:General: No Abnormalities,Left Upper: No Abnormalities,Right Upper: No Abnormalities,Left Lower: No Abnormalities,Right Lower: No Abnormalities,ABDOMEN:General: No Abnormalities,Left Upper: No Abnormalities,Right Upper: No Abnormalities,Left Lower: No Abnormalities,Right Lower: No Abnormalities,PELVIS//GI:No Abnormalities,EXTREMITIES:Left Leg: Edema,Right Leg: Edema,Left Arm: No Abnormalities,Right Arm: No Abnormalities,PULSE:NEURO:No Abnormalities, [address] [address] EMS Patient Care Report Name: JOHN SPARKS Room #: REG NISH Gaines#: [id number] Admission: 03/13/20 Attend Phys: Discharge: Date of : 66 Report #: [id number] Impression Congestive heart failure (CHF) Procedures @02:17ALS AssessmentResponse: UnchangedSucceeded@02:08Oxygen FlowRate: 3 Device: Nasal Cannula (NC) Response: UnchangedSucceeded@02:073-Lead ECGResponse: UnchangedSucceeded@02:0912-Lead ECG Timeline 01:46,Call Received 01:46,Psap Call 01:47,Dispatched 01:48,En Route 01:51,On Scene 01:54,At Patient 01:55,BP: 133/87 M,PULSE: 147,RR: R,SPO2: 100 Ox,ETCO2: ,BG: ,PAIN: ,GCS: , 01:55,BP: / M,PULSE: 153,RR: R,SPO2: Ox,ETCO2: ,BG: ,PAIN: ,GCS: , 01:57,BP: / M,PULSE: 143,RR: R,SPO2: 100 Ox,ETCO2: ,BG: ,PAIN: ,GCS: , 02:06,BP: / M,PULSE: 151,RR: R,SPO2: 100 Ox,ETCO2: ,BG: ,PAIN: ,GCS: , 02:07,3-Lead ECG,Response: UnchangedSucceeded, 02:08,Oxygen FlowRate: 3 Device: Nasal Cannula (NC) Response: UnchangedSucceeded, 02:09,12-Lead ECG, 02:09,BP: / M,PULSE: 146,RR: R,SPO2: 100 Ox,ETCO2: ,BG: ,PAIN: ,GCS: , 02:10,Depart Scene 02:12,BP: / M,PULSE: 149,RR: 20 R,SPO2: 99 Ox,ETCO2: ,B,PAIN: 0,GCS: 15, 02:17,ALS Assessment,Response: UnchangedSucceeded, 02:19,BP: 158/82 M,PULSE: 139,RR: R,SPO2: 100 Ox,ETCO2: ,BG: ,PAIN: ,GCS: , 02:20,At Destination 02:40,Call Closed Disclaimer v1.1 Copyright 2020 [employer] This EMS Care Summary contains data elements from the applicable legal record (which may be displayed differently). It is designed to provide pertinent information for the following purposes: continuity of care, clinical quality, and state data reporting. The complete legal record is available to ED staff and administrators of the receiving hospital in [employer]'s Patient Tracker. All data is provided "as is."
[~2020-03-13 02:27] MED LIST changes: +ACETAMINOPHEN325 MG PO; +ALLOPURINOL 10100 M3 PO; +BISACODYL10 MG RECTAL; +CHOLECALCIFEROL PO; +DAKINS; +DEXTROSE 5%; +DEXTROSE 50%; +EMOLLIENT500 GM TOP; +ENEMEEZ PLUS MIN5 ML RECTAL; +ERTAPENEM1 GM IV; +GLUTOSE GEL 1515 G1 PO; +LACTULOSE10 GM/152 PO; +LEVEMIR100 UNIT/1 SUBQ; +LORATIDINE 10 M10 M1 PO; +MAGNESIUM HYDROXIDE PO; +MICONAZOLE 2% TOP; +MINTOX PLUS TA1 EACH PO; +NITROSTAT0.4 M1 SUBLING; +PROTONIX40 M2 PO; +SENNA PLUS TAB1 EACH PO; +SLOW FE142 MG PO; +TRIPLE ANTIBIO1 EAC1 TOP; +VITAMIN B-121000 MC2 PO; +VOLTAREN GEL 1100 G1 TOP; +WATER; +[UNRECOGNIZED DRUG - OTHER] SUBQ
[2020-03-13 02:29] VITALS: BP 117/82
[2020-03-13 03:04] LABS: ABSOLUTE NEUTROPHILS 6.2 thou/uL (1.4-8.2); BASOPHILS 1.1 % (0.0-2.0); EOSINOPHILS 0.6 % (0.0-3.0); HEMATOCRIT 32.4 % (37.0-47.0); HEMOGLOBIN 10.2 gm/dL (12.0-15.0); LYMPHOCYTES 20.7 % (24.0-44.0); MCH 25.4 pg (26.0-34.0); MCHC 31.3 g/dL (28.0-37.0); MONOCYTES 9.8 % (1.0-8.0); PLATELET COUNT 315 thou/uL (150-400); POLYS 67.8 % (36.0-66.0); RBC 4.01 mil/uL (4.20-5.00); RDW 23.8 % (10.5-14.5); WBC 9.2 thou/uL (4.0-11.0)
[2020-03-13 03:20] LABS: CALCIUM 8.8 mg/dL (8.5-10.1); CREATININE 1.8 mg/dL (0.6-1.0); POTASSIUM 5.4 mmol/L (3.5-5.1)
[2020-03-13 03:30] LABS: ALBUMIN 2.5 g/dL (3.4-5.0); TOTAL BILIRUBIN 1.5 mg/dL (0.2-1.0); TOTAL PROTEIN 8.3 g/dL (6.4-8.2); TROPONIN-I 0.16 ng/mL (<0.06)
[2020-03-13 06:17] VITALS: BP 111/67
[2020-03-13 08:22] VITALS: BP 140/91
--- NOTE | 2020-03-13 08:35 | EKG ---
[facility] [place] [address] [place] [address] ELECTROCARDIOGRAM REPORT Name: JOHN SPARKS Room #: 356-P ADM IN M.R.#: [id number] Admission: 03/13/20 Attend Phys: Bandar Lombardo MD Discharge: Date of : 66 Report #: [id number] THIS REPORT FOR: cc: He Rudd,He Mayes,Sharad Sanchez MD [facility] ~ THIS REPORT FOR: //name// [facility] ED Test Date: 2020-03-13 Test Time: 02:38:39 Pat Name: JOHN SPARKS Department: Room: 356 Gender: F Aerial Photogrammetrist: Kym : 1970 Requested By: Igor Key Order Number: [id number] MD: Sharad Payan Measurements Intervals [place] Rate: 142 P: 0 OR: 104 QRS: -65 QRSD: 138 T: 104 QT: 346 QTc: 532 Interpretive Statements Incomplete EKG Probable sinus tachycardia Nonspecific IVCD with LAD Poor R wave progression Compared to ECG 05/27/2017 12:00:38 Heart rate has increased Electronically Signed On 03-13-2020 8:35:10 CDT by Sharad Payan [email or web address] <ELECTRONICALLY SIGNED> By: Sharad Payan MD, [facility] 03/13/20 0835 0238 0238 Sharad Payan MD, FAC /EPI
--- NOTE | 2020-03-13 08:41 | EKG ---
[facility] [place] [address] ELECTROCARDIOGRAM REPORT Name: JOHN SPARKS Room #: 356-P ADM IN M.R.#: [id number] Admission: 03/13/20 Attend Phys: Bandar Lombardo MD Discharge: Date of : 66 Report #: [id number] THIS REPORT FOR: cc: He Rudd,He Mayes,Sharad Sanchez MD [facility] ~ THIS REPORT FOR: //name// [facility] ED Test Date: 2020-03-13 Test Time: 05:07:43 Pat Name: JOHN SPARKS Department: Room: 356 P Gender: F Overnight Cashier: Kym : 1970 Requested By: Bandar Lombardo Order Number: [id number] MD: Sharad Payan Measurements Intervals [place] Rate: 125 P: HI: QRS: -87 QRSD: 125 T: 107 QT: 376 QTc: 543 Interpretive Statements Atrial fibrillation Nonspecific IVCD with LAD Poor R wave progression Nonspecific T abnormalities, lateral leads Compared to ECG 03/13/2020 02:38:39 Heart rate has slowed Electronically Signed On 03-13-2020 8:41:09 CDT by Sharad Payan [email or web address] <ELECTRONICALLY SIGNED> By: Sharad Payan MD, [facility] 03/13/20 [phone] Sharad Payan MD, FAC /EPI
--- NOTE | 2020-03-13 10:27 | NUR ---
NEW ADMIT FOR CHEST PAIN, N/V. AFIB RVR. PT ALERT X4, CURRENTLY AT [facility] FOR REHAB BUT LIVES WITH BROTHER. NO OXYGEN NEEDS. DENIES SOB AND DENIES CHEST PAIN AT THIS TIME. COMPLAINTS OF SOME NAUSES, TOLERATED BREAKFAST.1999 FLUID RESTRICTIONS. 2-3+ EDEMA TO LE. CARDILOGY ROUNDED. PT DC'S 03/12/20 AND RETURNED THIS AM. MAX ASSIST TO COMMODE. PT >400LBS. CARB CONTROL DIET WITH BS AC/HS. PERSONAL ITEMS AND CALL LIGHT IN REACH.
[2020-03-13 11:45] VITALS: BP 107/70
[2020-03-13 12:42] LABS: MAGNESIUM 2.4 mg/dL (1.8-2.4); TROPONIN-I 0.16 ng/mL (<0.06)
[2020-03-13 15:22] VITALS: BP 101/59
--- NOTE | 2020-03-13 15:57 | NUR ---
INITIAL ASSESSMENT: Received consult. AMANDA reviewed chart and spoke with nursing and attending physician. Pt was discharged yesterday to [facility]. Pt had episode of chest pain and returned to the ER last evening. Pt placed in Enhanced Isolation to r/o COVID-19. Test ordered today. Pt is afebrile and not on O2. Pt had two negative COVID tests during last hospital stay. Cardiology consulted and would like to keep pt overnight. Discharge back to [facility] is anticipated for tomorrow. AMANDA discussed with [facility] liaison, who states they will need to get a new insurance authorization since pt is not discharging today. AMANDA contacted rehab mgr to request therapy evals today if possible, even though COVID test is pending. AMANDA faxed clinical info to [facility] for review. Will fax therapy evals when available. AMANDA spoke with pt via phone. Introduced role of AMANDA. Pt is alert/orientated. Pt confirms plan to return to [facility] when medically stable and pending insurance authorization. AMANDA is following to assist as needed with discharge planning.
[2020-03-13 20:03] VITALS: BP 113/73
[2020-03-14 04:25] VITALS: BP 101/72
--- NOTE | 2020-03-14 06:04 | NUR ---
ALERT AND PLEASANT. SHE REQUIRES SBA TO THE BSC. DENIES PAIN. USED CPAP WHILE SLEEPING. DENIES ANY CHEST PAIN OR CHEST TIGHTNESS.PT BEEN AFIB CONTROLLED.AFEBRILE. FOLLOWS FLUID RESTRICTION. VOIDING OKAY. PERIRECTAL AND LEFT POSTERIOR THIGH WITH BORDERED DRSG INTACT. PT SATTING OKAY ABOVE 95%.CALLS APPROPRIATELY.
[2020-03-14 08:00] VITALS: BP 108/62
[2020-03-14 09:02] LABS: CALCIUM 8.5 mg/dL (8.5-10.1); CREATININE 1.8 mg/dL (0.6-1.0)
--- NOTE | 2020-03-14 12:00 | NUR ---
AMANDA reviewed chart and spoke with nursing and attending physician. Pt's COVID test was negative. Pt is afebrile and not on O2. Pt is medically stable for discharge back to [facility] pending insurance authorization. AMANDA faxed updated clinical info and PT/OT evals to [facility] for review. Notified [facility] liaison that pt is ready for discharge. Awaiting insurance authorization at this time. Chart copy ordered. AMANDA is following to assist as needed with discharge planning.
[2020-03-14 12:30] VITALS: BP 105/67
--- NOTE | 2020-03-14 12:39 | NUR ---
Nutrition: Assessing due to RD consult received for 'other'. Recently dc'ed on 03/12 and returned to ER the same night for chest pain. Admit: a fib w/ RVR. RD familiar to pt, seen ~1 week ago on 03/05 for nutrition assessment w/ follow up 03/11. Pt noted to have L thigh wound. RD started Glucerna supplements BID last visit due to heightened protein needs. Pt was eating 90-100% of most meals by end of stay on 03/12 and drinking supplements. On a calorie restricted diet of 2000 kcal Carb Controlled, w/ 2 g Na. Compared to last admit, pt did gain significant weight, from 402# per 03/04 to 423# per 03/13. Do note CHF hx. BG controlled at 107 mg/dl this a.m. If further wt gain occurs, in addition to keeping Na restriction, would also recommend further limiting kcals/CHO to [id number]. As pt was still pending another COVID r/o today, RD unable to visit room. Phoned pt in room, no answer x 2 attempts. Note plans for pt to return to [facility] later today, if able pending insurance authorization. Will resume Glucerna BID and follow for intake trends, wt changes. Anticipate low nutrition risk w/ previous interventions restarted.
[2020-03-14 16:50] VITALS: BP 112/79
--- NOTE | 2020-03-14 17:58 | NUR ---
PATIENT ADMIT TI UNIT AT 0900. ONLY RESPONED TO PAIN. ALL EXTREMITYS CONTRACTED. VSS AFEBRILE. CALLED [facility] TO ASKING HOME MEDS LIST AND DPOA NUMBER. HAVENOT RECEIVED IT. PATIENT HAS MULTI PRESSURE ULCER. Q2H. WILL KEEP MONITOR.
--- NOTE | 2020-03-14 18:14 | NUR ---
ASSUMED PATIENT CARE AT 0700. A/O X4. NO SOB NOTED. DRESSING CHANGED PER ORDER. STANDBY ASSISTED TO BSC. PROGRESSING TOWARDS POC GOALS.
[2020-03-14 19:36] VITALS: BP 114/80
--- NOTE | 2020-03-15 04:11 | NUR ---
ASSUMED CARE OF PT FROM 3W AT 1920HRS. PT AOX4 AND LETS NEEDS BE KNOWN. FALL PRECAUTION IN PLACE. PT DENIED PAIN, NAUSEA OR SOA. PT RUNNING AFIB ON TELE. PT IS ON 2000ML FR. VSS AND NO S/S OF ACUTE DISTRESS. WILL CONTINUE TO MONITOR.
[2020-03-15 07:42] VITALS: BP 109/61
[2020-03-15 09:24] LABS: CALCIUM 8.3 mg/dL (8.5-10.1); CREATININE 2.1 mg/dL (0.6-1.0); POTASSIUM 4.3 mmol/L (3.5-5.1)
--- NOTE | 2020-03-15 11:18 | 2DMMODE ---
[facility] [place] [address] 2 D/M-MODE ECHOCARDIOGRAM Name: JOHN SPARKS Room #: 459-P ADM IN ..#: [id number] Admission: 03/13/20 Attend Phys: Bandar Lombardo MD Discharge: Date of : 66 Report #: [id number] THIS REPORT FOR: cc: He Rudd Kevin E. DO Lammoglia, Francisco J. MD ~ APPROVED REPORT Study performed: 03/15/2020 10:24:49 EXAM: Comprehensive 2D, Doppler, and color-flow Echocardiogram Patient Location: Bedside Room #: 459 Status: routine BSA: 2.78 HR: 89 bpm BP: 109/61 mmHg Rhythm: Atrial Fibrillation Other Information Study Quality: Technically Difficult Technically limited study due to body habitus, lung disease. Indications ICD: Congestive Heart Failure COPD Diabetes Dyspnea CAD Cardiomyopathy Hypertension/HDD Echo Enhancing Agent Indication: Endocardial border delineation Agent(s) / Amount(s) Used: Optison 3 cc 2D Dimensions IVSd: 9.30 (7-11mm) LVOT Diam: 19.84 (18-24mm) LVDd: 64.91 mm PWd: 9.88 (7-11mm) Ascending Ao: 35.88 (22-36mm) LVDs: 60.31 (25-40mm) Aortic Root: 28.29 mm IVC: 21.00 mm [facility] [address] [place] [address] 2 D/M-MODE ECHOCARDIOGRAM Name: JOHN SPARKS Room #: 459-P [facility] IN ..#: [id number] Admission: 03/13/20 Attend Phys: Bandar Lombardo MD Discharge: Date of : 66 Report #: [id number] Volumes Left Atrial Volume (Systole) Single Plane 4CH: 91.46 mL Single Plane 2CH: 73.02 mL LA ESV Index: 32.00 mL/m2 Aortic Valve AoV Peak Bhupendra.: 1.23 m/s AO Peak Gr.: 6.05 mmHg LVOT Max P.34 mmHg LVOT Max V: 0.76 m/s DARRYL Vmax: 1.92 cm2 Pulmonary Valve PV Peak Bhupendra.: 1.32 m/s PV Peak Gr.: 6.94 mmHg Tricuspid Valve TR Peak Bhupendra.: 3.47 m/s TR Peak Gr.: 48.12 mmHg PA Pressure: 63.00 mmHg Left Ventricle Left ventricle is dilated. There is severe global hypokinesis of the left ventricle. There is normal left ventricular wall thickness. Left ventricular ejection fraction is severely decreased. LVEF is 20%. This study is not technically sufficient to allow evaluation of the LV diastolic function due to atrial fibrillation. Right Ventricle Right ventricle is dilated. Right ventricle is hypokinetic. Device lead is present in the right ventricle. Atria Left atrium is dilated. Right atrium is dilated. Device lead is present in the right atrium. Aortic Valve The aortic valve is normal in structure. The Aortic valve is sclerotic. Mild aortic regurgitation. There is no aortic valvular stenosis. Mitral Valve The mitral valve is normal in structure. Mild mitral regurgitation. No evidence of mitral valve stenosis. Tricuspid Valve The tricuspid valve is normal in structure. There is mild to moderate [facility] [address] [place] [address] 2 D/M-MODE ECHOCARDIOGRAM Name: JOHN SPARKS Room #: 459[facility] IN ..#: [id number] Admission: 03/13/20 Attend Phys: Bandar Lombardo MD Discharge: Date of : 66 Report #: [id number] tricuspid regurgitation. Estimated PAP 63 mmHg. There is moderate pulmonary hypertension. Pulmonic Valve The pulmonary valve is normal in structure. Mild pulmonic regurgitation. Great Vessels The aortic root is normal in size. The inferior vena cava is dilated with no inspiratory collapse. Pericardium Trace pericardial effusion. <Conclusion> Left ventricle is dilated. LVEF is 20%. There is severe global hypokinesis of the left ventricle. Right ventricle is dilated. Right ventricle is hypokinetic. Device lead is present in the right ventricle. Left atrium is dilated. Right atrium is dilated. Device lead is present in the right atrium. The aortic valve is normal in structure. The Aortic valve is sclerotic. Mild aortic regurgitation. The mitral valve is normal in structure. Mild mitral regurgitation. The tricuspid valve is normal in structure. There is mild to moderate tricuspid regurgitation. Estimated PAP 63 mmHg. There is moderate pulmonary hypertension. The pulmonary valve is normal in structure. Mild pulmonic regurgitation. Trace pericardial effusion. <ELECTRONICALLY SIGNED> By: Steve Garay MD 03/15/20 1117 [id number] Steve Garay MD /INF
[2020-03-15 11:49] VITALS: BP 122/50
--- NOTE | 2020-03-15 15:01 | NUR ---
WE ARE AWAITING INSRUANCE AUTH FOR PT TO GO TO [facility]. SHOULD AUTH BE RECEIVED OVER WEEKEND CONTACT TANG AT TO ARRANGE TRANSPORT. FAX ORDERS TO . CALL REPORT TO . PT SISTER SHOULD BE NOTIFIED OF DISHCARGE.
[2020-03-15 15:51] VITALS: BP 101/70
--- NOTE | 2020-03-15 18:42 | NUR ---
ASSUMED CARE AT 0700. PT IS ALERT AND ORIENTED. VSSA/RA. H/O AFIB WITH A PACEMAKER. TOLERATING DIET WITH FR. BLOOD SUGAR MONITORING. MIDLINE IN PLACE. FALL PRECAUTIONS IN PLACE, EDUCATED PT TO CALL IF NEEDS ARISE. CALL LIGHT IN REACH. WILL CONTINUE TO MONITOR
[2020-03-15 20:42] VITALS: BP 118/73
[2020-03-16 05:58] LABS: HEMATOCRIT 26.5 % (37.0-47.0); HEMOGLOBIN 8.4 gm/dL (12.0-15.0); MCH 25.7 pg (26.0-34.0); MCHC 31.7 g/dL (28.0-37.0); MCV 81.1 fL (80.0-100.0); RBC 3.27 mil/uL (4.20-5.00); RDW 23.3 % (10.5-14.5); WBC 5.2 thou/uL (4.0-11.0)
--- NOTE | 2020-03-16 05:59 | NUR ---
ASSUMED PT CARE AT 1930. PT IS A&OX4. SBA. PT TELE READING ASYSTOLE. NOTHING IS WRONG WITH PT. WE CHANGED LEADS, STICKERS, ECT. WHEN THE PT IS OVER EXERTED THE BOX READS INCORRECT. PT HAS A LINE, IT IS PATENT. PT TAKES MEDS WHOLE. BLOOD SUGAR IS 192. PT RECEIVED 3 UNITS LISPRO AND 18 UNITS OF GLARGINE. NO COMPLAINTS OF PAIN. WILL CONTINUE TO MONITOR.
[2020-03-16 06:23] LABS: CALCIUM 8.3 mg/dL (8.5-10.1); CREATININE 2.1 mg/dL (0.6-1.0); POTASSIUM 4.1 mmol/L (3.5-5.1)
[2020-03-16 07:46] VITALS: BP 124/69
--- NOTE | 2020-03-16 12:38 | NUR ---
Received awake on bed. Due medications given as prescribed, able to swallow meds w/o difficulty. A+Ox4. On telemetry, Afib, with pacemaker; no complaints of chest pain, crushing sensation and heaviness. On room air during daytime and CPAP at bedtime. On carb controlled, Sodium restriction diet, fluid restriction; no complaints of nausea, no vomiting and no abdominal pain noted. On blood sugar monitoring, taken and recorded accordingly; with sliding scale ordered- given as prescribed. With midline R upper arm- intact and flushing well. Assisted in ADLs. Falls bundle in place. Continent of bowel and bladder, able to use bedside commode. A/w discharge dispostion, W/E CM said pt's insurance got denied, will do peer to peer evaluation on Wednesday. To continue monitoring patient.
[2020-03-16 14:50] LABS: HEMATOCRIT 27.9 % (37.0-47.0); HEMOGLOBIN 8.9 gm/dL (12.0-15.0); MCHC 31.9 g/dL (28.0-37.0); MCV 81.7 fL (80.0-100.0); PLATELET COUNT 232 thou/uL (150-400); RBC 3.42 mil/uL (4.20-5.00); RDW 23.4 % (10.5-14.5); WBC 5.4 thou/uL (4.0-11.0)
[2020-03-16 14:56] LABS: CALCIUM 8.4 mg/dL (8.5-10.1); CREATININE 2.2 mg/dL (0.6-1.0); POTASSIUM 4.4 mmol/L (3.5-5.1)
[2020-03-16 15:01] LABS: INR 1.9; PROTIME 19.2 Seconds (9.3-11.4)
[2020-03-16 15:03] LABS: ALBUMIN 2.4 g/dL (3.4-5.0); TOTAL PROTEIN 7.6 g/dL (6.4-8.2)
[2020-03-16 15:25] VITALS: BP 105/84
[2020-03-16 15:31] LABS: ABSOLUTE NEUTROPHILS 3.1 thou/uL (1.4-8.2)
[2020-03-16 15:32] LABS: MACROCYTES 2+; MICROCYTES 2+; POLYCHROMASIA SLIGHT; TARGET CELLS FEW
[2020-03-16 20:00] VITALS: BP 104/55
--- NOTE | 2020-03-17 05:33 | NUR ---
ASSUMED CARE OF PT AT 1900HRS. PT AOX4 AND LETS NEEDS BE KNOWN. FALL PRECAUTION IN PLACE. ASSESSMENT CHARTED. PT DENIED PAIN, NAUSEA OR SOA. PT USED CPAP AT HS. PT HAD A LARGE BM THIS SHIFT. VSS AND NO S/S OF ACUTE DISTRESS. WILL CONTINUE TO MONITOR.
[2020-03-17 08:00] VITALS: BP 93/62
[2020-03-17 08:01] LABS: HEMATOCRIT 27.3 % (37.0-47.0); HEMOGLOBIN 8.7 gm/dL (12.0-15.0); MCH 26.2 pg (26.0-34.0); MCV 81.8 fL (80.0-100.0); PLATELET COUNT 223 thou/uL (150-400); RBC 3.33 mil/uL (4.20-5.00); RDW 23.6 % (10.5-14.5)
[2020-03-17 08:19] LABS: ALBUMIN 2.4 g/dL (3.4-5.0); CALCIUM 8.2 mg/dL (8.5-10.1); CREATININE 1.9 mg/dL (0.6-1.0); PHOSPHORUS 4.6 mg/dL (2.5-4.9); POTASSIUM 3.9 mmol/L (3.5-5.1); TOTAL PROTEIN 7.3 g/dL (6.4-8.2)
[2020-03-17 09:02] LABS: ABSOLUTE NEUTROPHILS 2.2 thou/uL (1.4-8.2); ANISOCYTOSIS 1+; HYPOCHROMASIA 2+; PLATELET ESTIMATE NORMAL
[2020-03-17 16:41] VITALS: BP 129/79
--- NOTE | 2020-03-17 18:44 | NUR ---
ASSUMED CARE AT 0700. PT IS ALERT AND ORIENTED. VSSA/RA. BP LOW THIS AM. HELD MEDS PER DR OZUNA. THIS PM ELVEATED. PT IS ON CPAP AT [facility]. AFIB/PACEMAKER ON TELE. TOLERATING PO. BLOOD SUGARS MONITORED. 2 LITER FR. MIDLINE IN PLACE. WOUNDS BERNARD, HARD TO OBSERVE DUE TO PT BODY HABITAS. NML. GI- CONSTIPATED. ORDERS FOR MAG CITRATE GIVEN. PT HAS HAD 2 STOOLS SINCE. PT SBA TO BSC. FALL PRECAUTIONS IN PLACE. EDUCATED PT TO CALL IF NEEDS ARISE. CALL LIGHT IN REACH. WILL CONTINUE TO MONITOR
[2020-03-17 19:30] VITALS: BP 111/62
--- NOTE | 2020-03-18 03:47 | NUR ---
ASSUMED PT CARE AT 1920. PT IS A & O X4. PT TAKES MEDS WHOLE. PT HAS A LINE IN HER RIGHT UPPER ARM. PT DENIES PAIN. PT TOOK A SHOWER. I RE WRAPPED HER FOOT (TOE). PT REFUSED TO HAVE THE OTHER WOUNDS COVERED. PT ALSO SAID THAT SHE DID NOT FEEL THE INTRA DRY IS EFFECTIVE. PT IS IN ROOM RESTING. I WILL CONTINUE TO MONITOR.
--- NOTE | 2020-03-18 11:03 | NUR ---
FAXED CLINICAL UPDATE TO [facility] RECEIVED CONFIRMATION AND LEFT MSG WITH SANDRA IN ADM.
--- NOTE | 2020-03-18 14:32 | NUR ---
CM NOTIFIED AFTER 1700 WEDNESDAY AFTERNOON THAT [employer] DENIED SKILLED REHAB AT [facility]. DR. PHAM CALLED IN THE PEER TO PEER TODAY AND IT WAS INDICATED THAT THEY UPHELD THE DENIAL. CM NOTIFIED PT AND SHE EXPRESSED FRUSTRATION. CM INDICATED THAT PLAN WOULD BE FOR PT TO DO TO HOME WITH HOME HEALTH SERVICES ONCE CLEARED BY THERAPY AND CARDIOLOGY SERVICES. REFERRAL SENT TO [facility] PT HAD USED THEM IN THE PAST. PT HAS A FWW, SCOOTER, AND KYLE SHOWER BENCH FOR HOME USE. CM FOLLOWING RELATED TO DC NEEDS.
[2020-03-18 15:31] VITALS: BP 138/75
[2020-03-18 16:17] VITALS: BP 130/79
--- NOTE | 2020-03-18 16:23 | NUR ---
FAXED REFERRAL TO [facility] HH SPOKE WITH LATIA IN INTAKE SHE RECEIVED REFERRAL AND WILL ACCEPT AT DISCHARGE. DP TO FOLLOW.
--- NOTE | 2020-03-18 16:43 | HC ---
[facility] [place] [address] [place] [address] CONSULTATION Name: JOHN SPARKS Room #: 459-P ADM IN M.R.#: [id number] Admission: 03/13/20 Attend Phys: Bandar Lombardo MD Discharge: Date of : 66 Report #: [id number] THIS REPORT FOR: cc: He Rudd,Kishore Rueda MD ~ CC: He Lombardo DATE OF SERVICE: 03/13/2020 CHIEF COMPLAINT: Perirectal abscess, status post incision or drainage. HISTORY OF PRESENT ILLNESS: This is a 49-year-old female patient with whom I am familiar from recent hospitalization who was admitted in February with fever and weakness and altered mental status. She had an incision and drainage of perirectal abscess at [facility] and she had been admitted for IV antibiotics. She was treated with local wound care and things did improve. She has returned and I have been asked to see her again for ongoing wound care. PAST MEDICAL HISTORY: Positive for history of morbid obesity, hypertension, COPD, type 2 diabetes mellitus, coronary artery disease, ischemic cardiomyopathy, ejection fraction 20%, chronic kidney disease stage 3, atrial fibrillation, currently on anticoagulation, history of venous insufficiency, venous leg ulcers, gout and hypothyroidism. She is status post pacemaker placement, tonsillectomy, and tubal ligation. ALLERGIES: CIPRO. MEDICATIONS: List is fully reviewed. FAMILY HISTORY: Noncontributory. REVIEW OF SYSTEMS: CONSTITUTIONAL: The patient denies fever, chills or weight loss. NEUROLOGICAL: The patient denies focal weakness, numbness or tingling. She has had some generalized weakness. EYES: The patient denies visual changes, redness, or drainage. ENT: The patient denies earache, nasal drainage or sore throat. CARDIOVASCULAR: The patient has some lower extremity edema. Denies chest pain, palpitations or diaphoresis. PULMONARY: The patient denies cough or shortness of breath at this time. GASTROINTESTINAL: The patient denies nausea, vomiting or abdominal pain. GENITOURINARY: The patient denies frequency of urination. ORTHOPEDIC: The patient denies pain, swelling, or limitations of the extremities. [address] [address] CONSULTATION Name: JOHN SPARKS Room #: 459-P [facility] IN [facility].#: [id number] Admission: 03/13/20 Attend Phys: Bandar Lombardo MD Discharge: Date of : 66 Report #: [id number] SKIN: The patient has a perirectal surgical wound and a left posterior thigh pressure ulceration. Other systems in a 14-point review of systems are negative. PHYSICAL EXAMINATION: VITAL SIGNS: At this time include temperature 36.5, pulse 86, respiratory rate 20, blood pressure 101/59. GENERAL: This is a chronically ill-appearing female patient who appears to be in minimal distress. HEENT: Head normocephalic. Nose and throat clear. NECK: Supple. ABDOMEN: Soft. Bowel sounds present. SKIN: Exam of perirectal and thigh region demonstrates the surgical wound. The perirectal region appears to be filling in nicely. It is healthy, clean, granulating. Stage 3 pressure ulceration of the left posterior thigh also relatively clean and granulating. Examination of the abdominal wall demonstrates a few appeared to be healing skin tears under the pannus and a small midline abdominal abrasion beneath the umbilicus. NEUROLOGIC: The patient is alert and oriented and appropriate. CLINICAL IMPRESSION: 1. Perirectal abscess, status post incision and drainage in 01/2020, now improving. 2. Stage 3 pressure ulceration of the left posterior thigh, improving. 3. Abrasion to the midline abdominal wall as well as multiple skin tears beneath the pannus. 4. Super morbid obesity. 5. Congestive heart rhythm with ejection fraction of 30%. 6. Atrial fibrillation. 7. Coronary artery disease. 8. Hyperlipidemia. 9. Hypertension. 10. Diabetes type 2. 11. Chronic kidney disease stage 3. 12. Moderate to severe protein-calorie malnutrition, recent albumin 2.4. 13. History of alcohol abuse. RECOMMENDATIONS: At this point in time, we will use a Dakin's moist gauze dressing to the perirectal wound, board foam to the left posterior thigh, bariatric bed with q. 2 hour turning and repositioning, board foam to the abdominal abrasion. Continue with InterDry beneath her pannus on a daily basis. [address] [address] CONSULTATION Name: SPARKSJOHN AGUILAR Room #: 459-P [facility] IN M.R.#: [id number] Admission: 03/13/20 Attend Phys: Bandar Lombardo MD Discharge: Date of : 66 Report #: [id number] She will need occupational therapy, physical therapy as needed. I appreciate being asked to see her in consultation. <ELECTRONICALLY SIGNED> By: Kishore Hudson MD 03/18/20 1643 1749 2226 Kishore Hudson MD /nt
[2020-03-18 19:50] VITALS: BP 129/80
--- NOTE | 2020-03-18 21:06 | NUR ---
ASSUMED PT CARE AT 0700.ALERTX ORIENTED X4. IV MID LINE ON RT UPPER ARM. PT HAS INTERDRY AND REFUSED TO PUT THAT, SHE WAS SAYING IT DOESN'T WORK. FALL PRECT IN PLACE CALL LIGHT WITHIN REACH . WILL CALL APPROPRIATELY. SHIFT REPORT GIVEN.
[2020-03-18 21:12] LABS: HEMATOCRIT 29.4 % (37.0-47.0); HEMOGLOBIN 9.4 gm/dL (12.0-15.0); MCH 26.4 pg (26.0-34.0); MCHC 32.1 g/dL (28.0-37.0); MCV 82.2 fL (80.0-100.0); RBC 3.57 mil/uL (4.20-5.00); RDW 23.7 % (10.5-14.5); WBC 5.6 thou/uL (4.0-11.0)
[2020-03-19 05:25] VITALS: BP 103/61
[2020-03-19 07:17] VITALS: BP 119/80
--- NOTE | 2020-03-19 08:50 | NUR ---
Assumed pt care at 1900. Pt's A/OX4,VSS. Denies pain on assessment. Up with AX1/RW. AFIB on telemetry. Wound care to buttocks/abd done w/o any problems. Midline on RUE patent with blood return. Fall precautions in place,resting w/o any distress CPAP in place. Call light/peersonal items within reach.
[2020-03-19 09:12] LABS: URINE BILIRUBIN NEGATIVE (Negative); URINE BLOOD TRACE (Negative); URINE CLARITY CLEAR; URINE COLOR YELLOW; URINE GLUCOSE-RANDOM* NEGATIVE (Negative); URINE KETONES NEGATIVE (Negative); URINE NITRITE-REFLEX NEGATIVE (Negative); URINE PROTEIN (DIPSTICK) NEGATIVE (Negative); URINE SPECIFIC GRAVITY 1.015 (1.005-1.035); URINE UROBILINOGEN 0.2 E.U./dl (0.2-1.0)
[2020-03-19 09:22] LABS: URINE LEUKOCYTES-REFLEX 1+ (Negative)
[2020-03-19 09:48] LABS: CRYSTALS None Seen /LPF (None Seen); SQUAMOUS >10 Many /LPF (0-3)
[2020-03-19 09:49] LABS: HYALINE CASTS 4-10 Moderate /LPF (None Seen)
[2020-03-19 09:50] LABS: URINE RBC 0-2 Rare /HPF (0-2); URINE WBC-REFLEX 6-15 Few /HPF (0-5)
[2020-03-19 14:50] VITALS: BP 120/61
--- NOTE | 2020-03-19 16:13 | NUR ---
PT IT TO HAVE EGD COLONOSCOPY TOMORROW. IT IS ANTICIPATED THAT PT MAY BE MEDICALLY STABLE TO DC HOME [facility] AFTER THAT. [facility] IF [facility] WOULD QUALIFY FOR WC FOR USE UPON DC. CM TO FOLLOW INDICATED WITH DC PLANNING.
[2020-03-19 20:26] VITALS: BP 108/83
--- NOTE | 2020-03-19 21:03 | NUR ---
Assumed pt care this am, VS stable blood sugar checks done medication given as per emar. POC followed, with no signs or verbalizatons of distress noted. Bowel prep started, aware she is to be NPO post midnight, consents in chart. Endorsed to the night nurse.
[2020-03-20] VITALS (8 sets, daily range): BP systolic 119–148; BP diastolic 52–93
--- NOTE | 2020-03-20 04:48 | NUR ---
Assumed pt care at 1900. Pt's A/OX4, VSS. Pt is up with AX1,RW/GB. Pt was on bowel prep at beginning of shift;needed a lot of encouragement to complete prep and eventually did approx 0200, voiding brown liquid stools at this time. Pt has been NPO after bowel prep. Midline dsg changed d/t hanging loose. Fall precautions in place. Partial bath/wound care done as tolorated. Resting in bed at this time w/o any distress noted,will continue to monitor pt.
[2020-03-20] MEDS ORDERED: HUMALOG100 UNIT/1 SUBQ (14:38)
[2020-03-20] MEDS ORDERED: CARVEDILOL12.5 MG PO (14:38)
[2020-03-20] MEDS ORDERED: IPRAT-ALBUT 0.5-3 ML INH (14:38)
[2020-03-20] MEDS ORDERED: HYDRALAZINE 10M10 MG PO ×2 (14:38→16:54)
[2020-03-20] MEDS ORDERED: SPIRONOLACTONE25 M1 PO (14:38)
[2020-03-20] MEDS ORDERED: DEMADEX20 MG PO (14:38)
--- NOTE | 2020-03-20 16:38 | NUR ---
PT HAD EGD AND COLONOSCOPY THIS DA. CARE TEAM INDICATED THAT PT IS MEDICALLY STABLE TO DC HOME THIS DAY. CM GOT PT'S ADDRESS ANDPROVIDED [facility] TO [facility]. PT WAS PROVIDED A LIST OF PLACES WHERE SHE COULD AQUIRE/RENT A WC FOR HOME USE. PT HAS ALL OTHER RECOMMENDED DME. PT TO DC HOME THIS DAY VIA FAMILY IN PERSONAL VEHICLE. NO OTHER CM INTERVENTION INDICATED. CASE CLOSED.
--- NOTE | 2020-03-20 16:56 | NUR ---
PT DISCHARGING TODAY TO HOME WITH [facility] SPOKE WITH [facility] IN INTAKE THEY RECEIVED ORDERS AND WILL NOTIFY PT TO SET UP VISITS.
--- NOTE | 2020-03-20 17:31 | NUR ---
Assumed pt care this am, VS stable received NPO and bowel prep complete. Taken down to EGD and colonoscopy in the am came back by lunch time. Diet and medications are tolerated well. POC followed with no signs or verbalizations of distress noted. Midline removed, pressure placed on the site no issues identified. Pt refused to have wound care pictures taken since she had already dressed up and wound care had come to visit and see. Pt is picked up by family, pt is now dc
--- NOTE | 2020-03-21 15:03 | P ---
[facility] [place] [address] [place] [address] PROCEDURE REPORT Name: JOHN SPARKS Room #: 459-P [facility] IN ..#: [id number] Admission: 03/13/20 Attend Phys: Bandar Lombardo MD Discharge: 03/20/20 Date of : 66 Report #: [id number] THIS REPORT FOR: cc: He Rudd Kevin E. DO McElhinney, Christian C. MD ~ CC: He Bernal DATE OF SERVICE: 03/20/2020 PROCEDURE PERFORMED: Colonoscopy with polypectomy. HISTORY OF PRESENT ILLNESS: The patient is a 49-year-old female with constipation, abdominal pain, gas, bloating, decrease in her hemoglobin, was on Xarelto. This has been held for several days. No previous history of endoscopy, no family history of colon cancer. Last hemoglobin was 9.4. DESCRIPTION OF PROCEDURE: The risks and benefits of the procedure were explained to the patient, those risks including but not limited to bleeding, perforation and the risk of sedation. She understood these risks and gave informed consent. Sedation was given using propofol per anesthesia. Next, a digital rectal exam was initially performed, which was normal other than the patient had a previous history of perirectal abscess that was treated surgically in January of this year, per the patient. There still is an open wound in this area, but this appears to be healing. Next, using a standard Olympus colonoscope, the scope was placed in the patient's anus and advanced under direct vision to the cecum. The overall prep was good. In the cecum, there was a 1.2 cm partially pedunculated polyp. This was removed by snare cautery. Because of the patient's need for Xarelto, even though there was no bleeding, a single endoclip was also placed after polypectomy. Otherwise, normal cecum. The ileocecal valve was normal. Ascending, transverse and descending colon were normal. Multiple diverticula were noted in the sigmoid colon, no evidence of inflammation, otherwise normal. The rectal mucosa was normal. On retroflexion, small nonbleeding internal hemorrhoids were noted. The scope was then withdrawn and the procedure terminated. The patient tolerated the procedure well. IMPRESSION: 1. Cecal polyp. 2. Sigmoid diverticulosis. 3. Small internal hemorrhoids. RECOMMENDATIONS: 1. Await biopsy results. 2. Recommend MiraLax on a daily basis for chronic constipation. [address] [address] PROCEDURE REPORT Name: JOHN SPARKS Room #: 459-P [facility]#: [id number] Admission: 03/13/20 Attend Phys: Bandar Lombardo MD Discharge: 03/20/20 Date of : 66 Report #: [id number] 3. Repeat colonoscopy in 5 years. Thank you for allowing me to participate in her care. <ELECTRONICALLY SIGNED> By: Davi Louis MD 03/21/20 1503 1104 1235 Davi Louis MD /nt
--- NOTE | 2020-03-21 15:03 | P ---
[facility] [place] [address] [place] [address] PROCEDURE REPORT Name: JOHN SPARKS Room #: 459-P [facility] IN ..#: [id number] Admission: 03/13/20 Attend Phys: Bandar Lombardo MD Discharge: 03/20/20 Date of : 66 Report #: [id number] THIS REPORT FOR: cc: He Rudd Kevin E. DO McElhinney, Christian C. MD ~ CC: He Bernal DATE OF SERVICE: 03/20/2020 PROCEDURE PERFORMED: Upper endoscopy with biopsies. HISTORY OF PRESENT ILLNESS: The patient is a 49-year-old female with history of multiple medical problems including morbid obesity, AFib, ischemic cardiomyopathy, constipation, admitted with epigastric pain, gas and constipation. She also had a drop in her hemoglobin on admission. She was on Xarelto, has been held for the last several days. No previous history of endoscopy. She also reported some nausea and vomiting. Plan is for EGD and colonoscopy. DESCRIPTION OF PROCEDURE: The risks and benefits of the procedure were explained to the patient, those risks including but not limited to bleeding, perforation, the risk of sedation. She understood these risks and gave informed consent. Sedation was given using propofol per anesthesia. Next, using a standard Olympus upper endoscope, the scope was placed in the patient's mouth and advanced under direct vision through the esophagus, stomach and into the second portion of the duodenum. The esophagus was normal throughout. The GE junction was normal. There was a moderate gastritis noted throughout half of the surface of the patient's gastric body and antrum. There was no evidence of ulcerations or bleeding. Biopsies were obtained to rule out H. pylori. The pylorus was normal and patent. The duodenal bulb, first and second portion were all normal. The scope was then withdrawn and the procedure terminated. The patient tolerated the procedure well. IMPRESSION: 1. Gastritis. 2. Otherwise, normal upper endoscopy. RECOMMENDATIONS: 1. Await biopsy results. 2. Would recommend daily PPI therapy. 3. We will proceed with colonoscopy next today. [facility] [address] [place] [address] PROCEDURE REPORT Name: JOHN SPARKS Room #: 459-P DIS IN M.R.#: [id number] Admission: 03/13/20 Attend Phys: Bandar Lombardo MD Discharge: 03/20/20 Date of : 66 Report #: [id number] Thank you for allowing me to participate in her care. <ELECTRONICALLY SIGNED> By: Davi Louis MD 03/21/20 1503 1100 1213 Davi Louis MD /nt
--- NOTE | 2020-03-22 16:06 | PATH ---
[facility] [place] [address] [place] [address] PATHOLOGY RPT PROCEDURE Name: BRIDGREJOHN L Room #: 459-P DIS IN M.R.#: [id number] Admission: 03/13/20 Date of : 66 Discharge: 03/20/20 Report #: [id number] Path Case #: [id number] [facility] Accession Number: [id number] . 01 Material submitted: . PART A: stomach - BX OF GASTRITIS PART B: cecum - POLYP AT CECUM . 01 Clinical history: . R/O H. pylori . 02 Diagnosis: A. Gastric mucosa, gastritis R/O H. pylori, endoscopic biopsy: - Moderate reactive gastropathy with focal active gastritis. - Negative for intestial metaplasia or atrophy. - Negative for Helicobacter pylori (properly controlled immunohistochemical stain performed). . B. Polyp, at cecum, endoscopic biopsy: - Tubular adenoma. - Negative for high-grade dysplasia. - Cauterized margin showing unremarkable mucosa along with focal tubular adenoma at ink. (IUV:nathaniel; 03/22/2020) QMS 03/22/2020 1333 Local . 02 Electronically signed: . Maryam Rubalcava MD, Pathologist NPI- [id number] . 01 Gross description: . A. The specimen is received in formalin, labeled "John Meng, BX of gastritis" and consists of multiple fragments of coronado tissue measuring 0.9 x 0.5 x 0.3 cm in aggregate which are entirely submitted in A1. . B. The specimen is received in formalin, labeled "John Meng, polyp at cecum" and consists of a polypoid segment of brown tissue measuring 0.9 x 0.8 x 0.7 cm. The margin is inked black. It is trisected and entirely submitted in B1. (SDY; 03/21/2020) SYU/SYU 03/21/2020 1043 Local . 02 Pathologist provided ICD-10: K31.9, K29.70, D12.0 . 02 [place] [address] PATHOLOGY RPT PROCEDURE Name: JOHN MENG Room #: 459-P DIS IN M.R.#: [id number] Admission: 03/13/20 Date of : 66 Discharge: 03/20/20 Report #: [id number] Path Case #: [id number] Specimen Comment: A courtesy copy of this report has been sent to [phone], [phone] Specimen Comment: [phone], Specimen Comment: Report sent to ,DR DEL ANGEL / DR MARLOW Performed at: [address] [facility], [place], [place] [id number] MD Lawrence Torre MD Phone: [phone] Performed at: [address] [facility] [id number] MD Maryam Rubalcava MD Phone: [phone]
== END 2020-03-20 17:54 | disposition home health service (06) | DRG 291 ==
LOC: ER 02:27 → 3W 04:18 → EROBS 04:18 → 3W 06:32 → 4W 03-14 19:16
PROVIDERS: Emergency Medicine; Internal Medicine; Nurse Practitioner; Nurse Practitioner Adult Health; Nurse Practitioner Family; ADMIT Hospitalist; ATTEND Hospitalist
PROC: 5A09357 Assistance with Respiratory Ventilation, Less than 24 Consecutive Hours, Continuous Positive Airway Pressure (ICD-10-PCS; principal; 2020-03-15)
PROC: 0DBH8ZZ Excision of Cecum, Via Natural or Artificial Opening Endoscopic (ICD-10-PCS; 2020-03-20)
DX: I13.0 Hypertensive heart and chronic kidney disease with heart failure and stage 1 through stage 4 chronic kidney disease, or unspecified chronic kidney disease (principal); L89.223 Pressure ulcer of left hip, stage 3; I50.21 Acute systolic (congestive) heart failure; E43 Unspecified severe protein-calorie malnutrition; N17.0 Acute kidney failure with tubular necrosis; I48.21 Permanent atrial fibrillation; K61.1 Rectal abscess; Z68.44 Body mass index [BMI] 60.0-69.9, adult; I25.5 Ischemic cardiomyopathy; E66.01 Morbid (severe) obesity due to excess calories; J44.9 Chronic obstructive pulmonary disease, unspecified; M10.9 Gout, unspecified; K21.9 Gastro-esophageal reflux disease without esophagitis; N18.3 Chronic kidney disease, stage 3 (moderate); F32.9 Major depressive disorder, single episode, unspecified; I25.10 Atherosclerotic heart disease of native coronary artery without angina pectoris; G47.33 Obstructive sleep apnea (adult) (pediatric); S70.322A Blister (nonthermal), left thigh, initial encounter; S70.321A Blister (nonthermal), right thigh, initial encounter; L89.219 Pressure ulcer of right hip, unspecified stage; K57.30 Diverticulosis of large intestine without perforation or abscess without bleeding; K64.8 Other hemorrhoids; D64.9 Anemia, unspecified; K59.00 Constipation, unspecified; E11.22 Type 2 diabetes mellitus with diabetic chronic kidney disease; S30.811A Abrasion of abdominal wall, initial encounter; Z20.828 Contact with and (suspected) exposure to other viral communicable diseases; Z95.0 Presence of cardiac pacemaker; Z82.49 Family history of ischemic heart disease and other diseases of the circulatory system; Z88.1 Allergy status to other antibiotic agents; Z87.891 Personal history of nicotine dependence; X58.XXXA Exposure to other specified factors, initial encounter; Y93.89 Activity, other specified; Y92.89 Other specified places as the place of occurrence of the external cause; Y99.8 Other external cause status
CPT/HCPCS: 10045; 10879; 62110; 62900; 70005

== ENCOUNTER 2020-03-22 03:44 | Emergency (ER) | payer OTHER ==
[~2020-03-22] VITALS: Ht 170.2 cm; Wt 188.7 kg
--- NOTE | ~2020-03-22 | EMS ---
[facility] [address] [place] [address] EMS Patient Care Report Name: JOHN SPARKS Room #: REG NISH Gaines#: [id number] Admission: 03/22/20 Attend Phys: Discharge: Date of : 66 Report #: [id number] THIS REPORT FOR: //name// Report Transmitted: 03/22/2020 08:33 EMS Care Summary [place], [place]/[facility] Incident [id number] @ 03/22/2020 03:07 Incident Location [address] [place] [address] Patient JOHN SPARKS Female, 49 Years 1970 Patient Address [address] [place] [address] Patient History Diabetes,Hypertension (HTN),Morbid Obesity,Atrial Fibrillation, Patient Allergies No known allergies, Patient Medications Gabapentin, Torsemide, Hydrochlorothiazide (Hctz), Coreg, Spironolactone, Chief Complaint pt is unable to right pt's self Disposition Transported No Lights/[place] Dispatch Reason Falls Transported To [facility] Narrative pt fell trying to reset herself in bed and was unable to get herself back into bed. [facility] was unable to get her back to bed either. pt has pain to the shoulder [facility] [address] [place] [address] EMS Patient Care Report Name: JOHN SPARKS Room #: REG NISH Gaines#: [id number] Admission: 03/22/20 Attend Phys: Discharge: Date of : 66 Report #: [id number] and cannot get her fluid retention under control. pt has no other obvious abnormalities. Initial Vitals @03:28P: 104,CO: 6,SpO2: 84, @03:27P: 88,SpO2: 83, @03:37P: 116,CO: 3,SpO2: 81, @03:31P: 94,CO: 5,SpO2: 74, @03:27P: 86,BP: 119/54,CO: 7,SpO2: 79, @03:34P: 87,BP: 123/85,SpO2: 71, @03:24P: 106,R: 18,BP: 128/77,Pain: 6/10,GCS: 15,CO: 9,SpO2: 98,Revised Trauma: 12, Assessments @03:25MENTAL:Person Oriented,Time Oriented,Place Oriented,Event Oriented,SKIN:HEENT:Eyes: Left Pupil: 4-mm,Eyes: Right Pupil: 4-mm,Head/Face: No Abnormalities,Neck/Airway: No Abnormalities,LUNG SOUNDS:Left Upper: Distension,Right Upper: Distension,Right Lower: Distension,Left Lower: Distension,General: No Abnormalities,ABDOMEN:Left Upper: Distension,Right Upper: Distension,Right Lower: Distension,Left Lower: Distension,General: No Abnormalities,PELVIS//GI:EXTREMITIES:Right Leg: Edema,Left Leg: Edema,Left Arm: Edema,Right Arm: Edema,Capillary Refill: Right Upper: < 2 Sec,PULSE:Radial: 2+ Normal,NEURO: Impression Edema Procedures @03:20ALS AssessmentResponse: UnchangedSucceeded@03:243-Lead ECGResponse: UnchangedSucceeded@03:26General CommentsResponse: Unchanged Timeline 02:33,Call Received 02:33,Dispatch Notified 03:07,Dispatched 03:08,En Route 03:16,On Scene 03:18,At Patient 03:20,ALS Assessment,Response: UnchangedSucceeded, 03:24,3-Lead ECG,Response: UnchangedSucceeded, 03:24,BP: 128/77 M,PULSE: 106,RR: 18 R,SPO2: 98 Ox,ETCO2: ,BG: ,PAIN: 6,GCS: 15, 03:26,General Comments,Response: Unchanged 03:26,Depart Scene 03:27,BP: 119/54 M,PULSE: 86,RR: R,SPO2: 79 Ox,ETCO2: ,BG: ,PAIN: ,GCS: , 03:27,BP: / M,PULSE: 88,RR: R,SPO2: 83 Ox,ETCO2: ,BG: ,PAIN: ,GCS: , [facility] [address] [place] [address] EMS Patient Care Report Name: JOHN SPARKS Room #: REG Liana#: [id number] Admission: 03/22/20 Attend Phys: Discharge: Date of : 66 Report #: [id number] 03:28,BP: / M,PULSE: 104,RR: R,SPO2: 84 Ox,ETCO2: ,BG: ,PAIN: ,GCS: , 03:31,BP: / M,PULSE: 94,RR: R,SPO2: 74 Ox,ETCO2: ,BG: ,PAIN: ,GCS: , 03:34,BP: 123/85 M,PULSE: 87,RR: R,SPO2: 71 Ox,ETCO2: ,BG: ,PAIN: ,GCS: , 03:37,BP: / M,PULSE: 116,RR: R,SPO2: 81 Ox,ETCO2: ,BG: ,PAIN: ,GCS: , 03:38,At Destination 04:03,Call Closed Disclaimer v1.1 Copyright 2020 [employer] This EMS Care Summary contains data elements from the applicable legal record (which may be displayed differently). It is designed to provide pertinent information for the following purposes: continuity of care, clinical quality, and state data reporting. The complete legal record is available to ED staff and administrators of the receiving hospital in [employer] Patient Tracker. All data is provided "as is."
[~2020-03-22 03:44] MED LIST changes: +CARVEDILOL12.5 MG PO; +HYDRALAZINE 10M10 MG PO; +IPRAT-ALBUT 0.5-3 ML INH
[2020-03-22 07:23] LABS: HEMATOCRIT 31.9 % (37.0-47.0); HEMOGLOBIN 10.1 gm/dL (12.0-15.0); MCH 26.3 pg (26.0-34.0); MCHC 31.5 g/dL (28.0-37.0); MCV 83.5 fL (80.0-100.0); RBC 3.83 mil/uL (4.20-5.00); RDW 24.7 % (10.5-14.5); WBC 5.2 thou/uL (4.0-11.0)
[2020-03-22 07:31] LABS: CALCIUM 8.9 mg/dL (8.5-10.1); CREATININE 1.6 mg/dL (0.6-1.0); POTASSIUM 3.5 mmol/L (3.5-5.1)
[2020-03-22 07:47] LABS: APTT 20.9 Seconds (24.5-32.8); INR 1.2; PROTIME 12.1 Seconds (9.3-11.4)
[2020-03-22 08:36] LABS: ABSOLUTE NEUTROPHILS 2.6 thou/uL (1.4-8.2)
[2020-03-22 08:37] LABS: ANISOCYTOSIS 1+; PLATELET COUNT 99 thou/uL (150-400)
[2020-03-22 09:58] VITALS: BP 111/67
== END 2020-03-22 11:02 | disposition home or self-care (01) ==
LOC: ER 03:44
PROVIDERS: Emergency Medicine
DX: M25.511 Pain in right shoulder (principal); M25.561 Pain in right knee; J44.9 Chronic obstructive pulmonary disease, unspecified; E66.01 Morbid (severe) obesity due to excess calories; E11.9 Type 2 diabetes mellitus without complications; I25.2 Old myocardial infarction; K21.9 Gastro-esophageal reflux disease without esophagitis; I13.0 Hypertensive heart and chronic kidney disease with heart failure and stage 1 through stage 4 chronic kidney disease, or unspecified chronic kidney disease; E11.22 Type 2 diabetes mellitus with diabetic chronic kidney disease; N18.3 Chronic kidney disease, stage 3 (moderate); I50.9 Heart failure, unspecified; M10.9 Gout, unspecified; F17.210 Nicotine dependence, cigarettes, uncomplicated; Z88.1 Allergy status to other antibiotic agents; Z79.899 Other long term (current) drug therapy; Z79.4 Long term (current) use of insulin; Z98.890 Other specified postprocedural states; Z90.89 Acquired absence of other organs; W06.XXXA Fall from bed, initial encounter; Y93.89 Activity, other specified; Y92.89 Other specified places as the place of occurrence of the external cause; Y99.9 Unspecified external cause status

== ENCOUNTER 2020-05-02 22:29 | Inpatient (IN) | payer OTHER ==
[~2020-05-02] VITALS: Ht 137.2 cm; Wt 207.3 kg
[2020-05-02 22:30] VITALS: BP 114/60
[2020-05-02 23:26] LABS: BASOPHILS 0.5 % (0.0-2.0); EOSINOPHILS 3.1 % (0.0-3.0); HEMATOCRIT 28.7 % (37.0-47.0); HEMOGLOBIN 9.1 gm/dL (12.0-15.0); LYMPHOCYTES 26.7 % (24.0-44.0); MCH 24.9 pg (26.0-34.0); MCHC 31.7 g/dL (28.0-37.0); MCV 78.4 fL (80.0-100.0); MONOCYTES 8.8 % (1.0-8.0); PLATELET COUNT 198 thou/uL (150-400); POLYS 60.9 % (36.0-66.0); RBC 3.66 mil/uL (4.20-5.00)
[2020-05-02 23:36] LABS: CALCIUM 9.2 mg/dL (8.5-10.1); CREATININE 1.7 mg/dL (0.6-1.0); POTASSIUM 3.7 mmol/L (3.5-5.1)
[2020-05-02 23:38] LABS: APTT 36.9 Seconds (24.5-32.8); INR 1.4; PROTIME 14.4 Seconds (9.3-11.4)
[2020-05-02 23:49] LABS: ALBUMIN 2.7 g/dL (3.4-5.0); TOTAL BILIRUBIN 2.1 mg/dL (0.2-1.0); TOTAL PROTEIN 8.4 g/dL (6.4-8.2); TROPONIN-I 0.11 ng/mL (<0.06)
[2020-05-03 00:05] LABS: URINE BILIRUBIN NEGATIVE (Negative); URINE BLOOD 3+ (Negative); URINE CLARITY SL CLOUDY; URINE COLOR YELLOW; URINE GLUCOSE-RANDOM* NEGATIVE (Negative); URINE KETONES NEGATIVE (Negative); URINE NITRITE-REFLEX NEGATIVE (Negative); URINE PROTEIN (DIPSTICK) NEGATIVE (Negative)
[2020-05-03 00:11] LABS: URINE LEUKOCYTES-REFLEX 3+ (Negative)
[2020-05-03 00:30] LABS: BACTERIA-REFLEX >30 Many /HPF (None Seen); CASTS None Seen /LPF (None Seen); CRYSTALS None Seen /LPF (None Seen); MUCUS 0-3 Light strn/LPF (None Seen); SQUAMOUS 0-3 Few /LPF (0-3); URINE RBC 3-10 Few /HPF (0-2); URINE WBC-REFLEX >25 Many /HPF (0-5)
[2020-05-03 02:26] VITALS: BP 121/61
--- NOTE | 2020-05-03 03:00 | NUR ---
Pt. admitted to the unit from the emergency room accompanied by staff. She is alert and oriented and offers no complaints. Admission assessment and history is completed. Bed alarm is on.
[2020-05-03 05:28] LABS: HEMATOCRIT 28.3 % (37.0-47.0); MCH 25.1 pg (26.0-34.0); MCHC 31.7 g/dL (28.0-37.0); MCV 79.1 fL (80.0-100.0); RBC 3.58 mil/uL (4.20-5.00); RDW 20.3 % (10.5-14.5); WBC 4.9 thou/uL (4.0-11.0)
[2020-05-03 06:40] LABS: CALCIUM 9.2 mg/dL (8.5-10.1); CREATININE 1.9 mg/dL (0.6-1.0); POTASSIUM 3.5 mmol/L (3.5-5.1); TOTAL BILIRUBIN 2.1 mg/dL (0.2-1.0); TOTAL PROTEIN 8.3 g/dL (6.4-8.2)
[2020-05-03 07:05] VITALS: BP 125/72
--- NOTE | 2020-05-03 08:59 | EKG ---
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 : 1970 Requested By: Yoel Briones Order Number: [id number] MD: Sharad Payan Measurements Intervals [place] Rate: 93 P: MA: QRS: -7 QRSD: 137 T: 140 QT: 421 QTc: 524 Interpretive Statements Atrial fibrillation Nonspecific intraventricular conduction delay Probable anterolateral infarct, old Compared to ECG 03/13/2020 05:07:43 No significant change was found Electronically Signed On 05-03-2020 8:58:59 CDT by Sharad Payan [email or web address] <ELECTRONICALLY SIGNED> By: Sharad Payan MD, [facility] 05/03/20 0858 0 0 Sharad Payan MD, FAC /EPI
--- NOTE | 2020-05-03 09:34 | NUR ---
WOUND CONSULT; WOUNDS TO THE LEFT MEDIAL THIGH AND LEFT SIDE OF GROIN/LABIA HAVE LINIAR WOUNDS WITH BEEFY RED TISSUE. THIS PATIENT IS OBESE AND USES A PUREWICK EXTERNAL FEMALE CATHETER. S/S OF THESE INJURING IS CONSISTANT WITH MECHANICAL PRESSURE FROM THE PUREWICK, OR FUNGAL/INCONTINENT ISSUES. THE WOUNDS ARE LINIAR IN NATURE. RECOMMENDATION; 1-APPLY ZGUARD TID AND CHECK PLACEMENT OF THE PUREWICK. RN PRESENT
--- NOTE | 2020-05-03 10:50 | EKG ---
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: KRISTAN : 1970 Requested By: Jhonny Dsohi Order Number: [id number] MD: Skyler Bliss Measurements Intervals [place] Rate: 94 P: PA: QRS: 169 QRSD: 116 T: QT: 401 QTc: 502 Interpretive Statements Atrial fibrillation Ventricular premature complex Nonspecific intraventricular conduction delay Low voltage, extremity and precordial leads Compared to ECG 05/03/2020 02:31:23 Ventricular premature complex(es) now present Low QRS voltage now present Electronically Signed On 05-03-2020 10:49:54 CDT by Skyler Bliss [email or web address] <ELECTRONICALLY SIGNED> By: Skyler Bliss MD, [facility] 05/03/20 1049 Skyler Bliss MD, [facility] /EPI
--- NOTE | 2020-05-03 12:08 | NUR ---
Received awake on bed. Due medications given as prescribed, able to swallow meds w/o difficulty. On room air. Vital signs stable. A+Ox4. On telemetry, with hx of controlled Afib; with L chest AICD. On carb controlled diet- with poor appetite- encouraged to eat and drink, offered snacks. On blood sugar monitoring- taken and recorded accordingly; with sliding scale insulin ordered- given as prescribed. Continent of bowel and bladder, able to use bedside commode with max assist- falls bundle in place. For PT/OT evaluation today. With NS at 100cc/hr, infusing well at R hand- dressing C/D/I. With wound at L medial thigh- pt seen and examined by wound nurse- for low airloss mattress, to apply Zguard to affected area; photo taken and attached to chart. Pt complained of chest pain this morning- Dr Doshi informed; EKG done, cardio consult place- called in consult, talked to answering service- will informe oncall physician. Pt seen and examined by PT and OT- tolerated session well; with episode of tachycardia but rate went down once she settled in bed. 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 Dr Doshi informed re: pt's complain of heart burn- PRN medication prescribed. To continue monitoring patient.
[2020-05-03 15:15] VITALS: BP 127/66
--- NOTE | 2020-05-03 16:26 | NUR ---
PT ADMITTED RELATED TO UTI. CM REVIEWED CHART AND SPOKE WITH CARE TEAM. CM ATTEMTPED PC TO PT NO ANSWER. PT IS FAMILIAR TO CM FROM PREVIOUS ADMISSIONS. PT RESIDES IN AN APARTMENT WITH HER SON AND BROTHERS. SHE HAD RECOMMENDED EQUIPTMENT IN THE HOME. PT HAD BEEN ON SERVICE WITH [facility] IN THE RECENT PAST. PT HAD BEEN TO AND [facility] ALSO. PT SAW AND RECOMMENDED HOME WITH HH AND OT INDICATED POSTACUTE. IF PT IS MEDICALLY STABLE TO NE HOME OVER WEEKEND [facility] AT FAX ORDERS FOR .
[2020-05-03 19:38] VITALS: BP 116/53
--- NOTE | 2020-05-04 05:55 | NUR ---
Pt. rested quietly during the night when checked on during frequent rounds. She c/o itching and po benadryl given per order with some relief noted. Up to the bedside comode with assistance of one. Offers no c/o pain. Bed alarm is on.
[2020-05-04 07:37] VITALS: BP 133/76
--- NOTE | 2020-05-04 10:07 | NUR ---
Received awake on bed. Due medications given as prescribed, able to swallow meds w/o difficulty. On room air. Vital signs stable. On telemetry; hx afib; no complains of chest pain, crushing sensation and heaviness. A+OX4. On carb controlled diet- tolerating well; no vomiting and no abdominal pain noted. On blood sugar monitoring- taken and recorded accordingly; with sliding scale insulin prescribed- pt with poor appetite at time, thus refusing insulin coverage. Continent of bowel and bladder, able to use bedside commode with moderate to max assist. Falls bundle in place. With NS at 100cc/hr, infusing well at R hand- intact and flushing well. With wound at L medial thigh- to apply Z guard to area; on low airloss mattress; pt able to turn herself in bed. Assisted in ADLs. No complains of pain made during assessment. To continue monitoring patient. Pt seen and examined by Dr Doshi this AM, to discontinue IVF.
[2020-05-04 11:38] VITALS: BP 133/76
[2020-05-04 15:55] VITALS: BP 116/75
[2020-05-04 19:41] VITALS: BP 119/59
--- NOTE | 2020-05-05 06:06 | NUR ---
progress pt a/o x4 not oob this shift, pt requested to go to ko bed very early. sleepy off n off last night. up to bsc up with on gb and walker.remainder of evening patient slept. continue poc,
[2020-05-05 07:49] VITALS: BP 121/68
[2020-05-05 08:32] VITALS: BP 121/68
[2020-05-05] MEDS ORDERED: AUGMENTIN 500-1 EACH PO (10:24)
[2020-05-05] MEDS ORDERED: NYAMYC15 GM TOP (10:24)
[2020-05-05] MEDS ORDERED: CARVEDILOL12.5 MG PO (10:24)
[2020-05-05 11:17] LABS: CREATININE 1.8 mg/dL (0.6-1.0); POTASSIUM 3.6 mmol/L (3.5-5.1)
--- NOTE | 2020-05-05 17:18 | NUR ---
ASSUMED PT CARE THIS AM. PT VITAL SIGNS STABLE, A&OX4. PT ON TELEMETRY IS A FIB. PT AMBULATED TO BEDSIDE COMMODE. PT PLEASANT. FULL BATH GIVEN AND NYSTATIN APPLIED. PT INSTRUCTED ON IMPORTANCE OF DRYING PROPERLY WHEN BATHING. PT VERBALIZED UNDERSTANDING. PT IN NO PAIN. WOUND CLEANSED AND CARED FOR PER ORDER. PT DISCHARGED TO HOME WITH HOME HEALTH AT 0515.
== END 2020-05-05 17:26 | disposition home health service (06) | DRG 871 ==
LOC: ER 22:29 → 4W 05-03 01:51 → EROBS 05-03 01:51 → 4W 05-03 03:53
PROVIDERS: Emergency Medicine; Nurse Practitioner Family; ADMIT Hospitalist; ATTEND Hospitalist
DX: A41.51 Sepsis due to Escherichia coli [E. coli] (principal); E43 Unspecified severe protein-calorie malnutrition; N39.0 Urinary tract infection, site not specified; I48.20 Chronic atrial fibrillation, unspecified; N17.9 Acute kidney failure, unspecified; Z16.12 Extended spectrum beta lactamase (ESBL) resistance; Z68.45 Body mass index [BMI] 70 or greater, adult; I13.0 Hypertensive heart and chronic kidney disease with heart failure and stage 1 through stage 4 chronic kidney disease, or unspecified chronic kidney disease; E86.0 Dehydration; B96.20 Unspecified Escherichia coli [E. coli] as the cause of diseases classified elsewhere; E78.5 Hyperlipidemia, unspecified; I25.10 Atherosclerotic heart disease of native coronary artery without angina pectoris; G47.33 Obstructive sleep apnea (adult) (pediatric); I50.9 Heart failure, unspecified; D64.9 Anemia, unspecified; E66.01 Morbid (severe) obesity due to excess calories; N18.3 Chronic kidney disease, stage 3 (moderate); M10.9 Gout, unspecified; E11.22 Type 2 diabetes mellitus with diabetic chronic kidney disease; J44.9 Chronic obstructive pulmonary disease, unspecified; G89.29 Other chronic pain; I25.5 Ischemic cardiomyopathy; I08.0 Rheumatic disorders of both mitral and aortic valves; K21.9 Gastro-esophageal reflux disease without esophagitis; K29.70 Gastritis, unspecified, without bleeding; F32.9 Major depressive disorder, single episode, unspecified; F43.10 Post-traumatic stress disorder, unspecified; E78.00 Pure hypercholesterolemia, unspecified; Z79.01 Long term (current) use of anticoagulants; I25.2 Old myocardial infarction; Z98.891 History of uterine scar from previous surgery; Z91.14 Patient's other noncompliance with medication regimen; Z79.4 Long term (current) use of insulin; Z79.899 Other long term (current) drug therapy; Z88.1 Allergy status to other antibiotic agents; Z88.8 Allergy status to other drugs, medicaments and biological substances; Z87.891 Personal history of nicotine dependence
CPT/HCPCS: 10045

== ENCOUNTER 2020-08-01 14:08 | Inpatient (IN) | payer OTHER ==
[~2020-08-01] VITALS: Ht 167.6 cm; Wt 214.2 kg
[~2020-08-01 14:08] MED LIST changes: +AUGMENTIN 500-1 EACH PO; +NYAMYC15 GM TOP
[2020-08-01 14:10] VITALS: BP 147/123
[2020-08-01 15:31] LABS: HEMOGLOBIN 11.2 gm/dL (12.0-15.0); RBC 4.13 mil/uL (4.20-5.00); WBC 6.1 thou/uL (4.0-11.0)
[2020-08-01 15:33] LABS: HEMATOCRIT 35.4 % (37.0-47.0); MCH 27.1 pg (26.0-34.0); MCHC 31.6 g/dL (28.0-37.0); MCV 85.7 fL (80.0-100.0); PLATELET COUNT 176 thou/uL (150-400); RDW 21.3 % (10.5-14.5)
[2020-08-01 15:50] LABS: CALCIUM 10.1 mg/dL (8.5-10.1); CREATININE 3.4 mg/dL (0.6-1.0); POTASSIUM 4.6 mmol/L (3.5-5.1); TROPONIN-I 0.15 ng/mL (<0.06)
[2020-08-01 16:20] LABS: ABSOLUTE NEUTROPHILS 4.6 thou/uL (1.4-8.2); ANISOCYTOSIS 1+
[2020-08-01 22:14] VITALS: BP 124/104
[2020-08-01] MEDS ORDERED: DOXYCYCLINE 10100 M2 PO (22:30)
[2020-08-02 04:52] LABS: URINE BILIRUBIN 1+ (Negative); URINE BLOOD 3+ (Negative); URINE CLARITY SL CLOUDY; URINE COLOR YELLOW; URINE GLUCOSE-RANDOM* TRACE (Negative); URINE KETONES NEGATIVE (Negative); URINE NITRITE-REFLEX NEGATIVE (Negative); URINE PROTEIN (DIPSTICK) NEGATIVE (Negative); URINE UROBILINOGEN 0.2 E.U./dl (0.2-1.0)
[2020-08-02 04:55] LABS: ICTOTEST (BILI CONFIRMATORY) Positive (Negative); URINE LEUKOCYTES-REFLEX 3+ (Negative)
[2020-08-02 05:01] LABS: BACTERIA-REFLEX >30 Many /HPF (None Seen); CASTS None Seen /LPF (None Seen); CRYSTALS None Seen /LPF (None Seen); MUCUS 0-3 Light strn/LPF (None Seen); SQUAMOUS 0-3 Few /LPF (0-3); URINE RBC 3-10 Few /HPF (0-2); URINE WBC-REFLEX >25 Many /HPF (0-5); WBC CLUMPS Moderate (None Seen)
[2020-08-02 05:37] LABS: CALCIUM 9.6 mg/dL (8.5-10.1); CREATININE 3.3 mg/dL (0.6-1.0)
[2020-08-02 05:45] LABS: POTASSIUM 5.3 mmol/L (3.5-5.1)
[2020-08-02 08:40] VITALS: BP 111/66
--- NOTE | 2020-08-02 08:51 | EKG ---
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: ERENDIRA : 1970 Requested By: Yoel Briones Order Number: [id number] MD: Skyler Bliss Measurements Intervals [place] Rate: 81 P: LA: QRS: 102 QRSD: 119 T: 28 QT: 415 QTc: 482 Interpretive Statements Atrial fibrillation Nonspecific intraventricular conduction delay Low voltage, extremity leads Baseline wander in lead(s) I Compared to ECG 05/03/2020 09:49:42 ST (T wave) deviation now present Ventricular premature complex(es) no longer present Electronically Signed On 08-02-2020 8:50:50 STUDIO ENGINEER by Skyler Bliss [email or web address] <ELECTRONICALLY SIGNED> By: Skyler Bliss MD, FACC 08/02/20 0850 1453 1453 Skyler Bliss MD, [facility] /EPI
[2020-08-02 12:33] VITALS: BP 101/69
--- NOTE | 2020-08-02 14:41 | NUR ---
PT ARRIVED AT 0900 FROM THE ER, HR ELEVATED, SINUS TACHYCARDIA ON THE TELE AND HYPOTENSIVE, PHYSICIAN NOTIFIED AND ORDERS RECEIVED. PT IS ALERT AND ORIENTED*4, SLOW TO RESPOND.C/O MILD PAIN ACROSS BILATERAL EYES AND FOREHEAD, WILL CONTINUE TO MONITOR. PT HAS BLE, BUE AND ABDOMINAL EDEMA, PULSES ARE 1/1. GROIN, PANUS AND ALL SKIN FOLDS MOIST AND FOUL ODOR NOTED IN ALL SKIN FOLDS. WOUNDS NOTED ON CHEST, RIGHT CHEEK, LEFT INNER THIGH AND POSTERIOR BILATERAL THIGHS. SMALL AMOUNT NOTED ON STOOL AND ON WIPE FROM THE ANUS, WILL CONTINUE TO MONITOR. BARIATRIC BED ORDERED (UNABLE TO REPOSITION PATIENT SAFELY IN THE REGULAR BED), INVESTIGATION MANAGER CALLED, AWAITING APPROVAL. PT UP WITH 2 MAX ASSIST, GB AND WALKER PIVOT TRANSFER TO BEDSIDE COMMODE. SOB NOTED WITH EXERTION. IV ON RIGHT AC PATENT, IV ANTIBIOTIC AND NS BOLUS ADMINISTERED PER ORDER. Q1H VISUAL CHECKS. CALL LIGHT WITHIN REACH. FALL PRECAUTIONS IN PLACE.
[2020-08-02 16:04] VITALS: BP 109/92
[2020-08-02 19:55] VITALS: BP 106/73
[2020-08-03] VITALS (8 sets, daily range): BP systolic 101–150; BP diastolic 61–77
--- NOTE | 2020-08-03 04:30 | NUR ---
SPOKE WITH SISTER KEYUR FOR 10 MIN. QUESTIONS AWNSERED.
--- NOTE | 2020-08-03 05:25 | NUR ---
0505 NOTIFIED FIRE CONTROL TECHNICIAN B OF HEART RATE FROM 100-127. DOES NOT MAINTAIN ABOVE 120. WILL NOTIFY IF SUSTAINS ABOVE 120.
--- NOTE | 2020-08-03 07:38 | NUR ---
PATIENT SLEPT THROUGH SOME OF THE NIGHT. A&OX4. FREQUENT TURNING. NO COMPLAINTS OF SOA. NO COMPLAINTS OF PAIN. PATINET HAS EDEMA ON UE, LE, AND ABD. PT HAS WOUNDS ON CHEST, FACE, ANTERIOR AND POSTERIOR BILATERAL LEGS. PATIENT UP X 2 TO [facility] W/ GAIT BELT AND WALKER. FALL PRECAUTIONS ARE IN PLACE. CALL LIGHT WITHIN REACH. CONTINUING TO ASSES CLOSELY ACCORDING TO POC.
[2020-08-03 08:59] LABS: CREATININE 3.3 mg/dL (0.6-1.0); POTASSIUM 4.3 mmol/L (3.5-5.1)
[2020-08-03 09:03] LABS: ALBUMIN 2.9 g/dL (3.4-5.0); PHOSPHORUS 4.6 mg/dL (2.6-4.7)
--- NOTE | 2020-08-03 17:56 | NUR ---
PT CARE ASSUMED AT 0700. ASSESSMENTS CHARTED. MEDICATION CHARTED. RFA IV. AFIB. MORDILY OBESE. ASSIST X 2 MINIMUM. ÁLVAREZ. 5 WOUNDS. UP TO BSC; LG BM TODAY. ACHS; LOW DOSE SS.
[2020-08-04] VITALS (9 sets, daily range): BP systolic 94–128; BP diastolic 62–100
--- NOTE | 2020-08-04 03:18 | NUR ---
PATIENTS CARE WAS ASSUMED AT SHIFT CHANGE. PATIENT WAS ASSESSED AND MEDS WERE PASS. PATIENT REPORTED TO THE NIGHT NURSE THAT SHE WEARS A C-PAP HS. OBTAINED AN ORDER AND CPAP WAS PLACED.PATIENT C/O LEG PAIN/ANKLE PAIN BALAT. AT 0030 PATIENT DID C/O CHEST PAIN. CALLED GERONIMO FOR ORDERS AND PAIN MEDS FOR HER.A TWELVE LEAD EKG WAS DONE, VS STABLE, AND A ORDER FOR NITRO WAS OBTAINED. ONE DOES OF NITRO WORKED TO GET CHEST PAIN UNDER CONTROL. PATIENT DOES HAVE AN EF OF 20%. ALL THE ABOVE CARDIOLOGY ORDERS WERE OBTAINED BY DR. NICHOLS. WILL CONTINUE TO MONITOR. THE BED IS IN A LOW AND LOCKED POSITION.
[2020-08-04 04:27] LABS: ALBUMIN 2.8 g/dL (3.4-5.0); CALCIUM 9.6 mg/dL (8.5-10.1); CREATININE 3.2 mg/dL (0.6-1.0); PHOSPHORUS 4.3 mg/dL (2.6-4.7); POTASSIUM 4.1 mmol/L (3.5-5.1)
--- NOTE | 2020-08-04 07:04 | 2DMMODE ---
[facility] [place] [address] 2 D/M-MODE ECHOCARDIOGRAM Name: BRIDGERJOHN L Room #: 205-P ADM IN M.R.#: [id number] Admission: 08/01/20 Attend Phys: Jhonny Doshi MD Discharge: Date of : 66 Report #: [id number] THIS REPORT FOR: cc: He Rudd,Skyler Collado MD [facility] ~ APPROVED REPORT Study performed: 08/03/2020 10:32:16 EXAM: Comprehensive 2D, Doppler, and color-flow Echocardiogram Patient Location: Bedside Room #: 205 Status: on-call BSA: 2.86 HR: 109 bpm BP: 102/66 mmHg Rhythm: Atrial Fibrillation Other Information Study Quality: Adequate Technically limited study due to body habitus. Risk Factors: Cardiac Risk Factors: HTN, DM Indications ICD: COPD Atrial Fibrillation Dyspnea CAD 2D Dimensions IVSd: 10.89 (7-11mm) LVOT Diam: 19.00 (18-24mm) LVDd: 56.78 mm PWd: 10.86 (7-11mm) Ascending Ao: 27.31 (22-36mm) LVDs: 52.64 (25-40mm) Aortic Root: 24.70 mm LV Single Plane 4CH: 26.35 % LV Single Plane 2CH: 27.95 % Biplane EF: 27.2 % Volumes [facility] [address] [place] [address] 2 D/M-MODE ECHOCARDIOGRAM Name: JOHN SPARKS Room #: 205-[facility] IN ..#: [id number] Admission: 08/01/20 Attend Phys: Kishore Escalera Discharge: Date of : 66 Report #: [id number] Left Atrial Volume (Systole) Single Plane 4CH: 86.58 mL Single Plane 2CH: 121.09 mL LA ESV Index: 40.00 mL/m2 Aortic Valve AoV Peak Bhupendra.: 1.33 m/s AO Peak Gr.: 7.03 mmHg LVOT Max P.55 mmHg LVOT Max V: 0.62 m/s DARRYL Vmax: 1.35 cm2 Pulmonary Valve PV Peak Bhupendra.: 1.13 m/s PV Peak Gr.: 5.07 mmHg Tricuspid Valve TR Peak Bhupendra.: 3.01 m/s RAP Estimate: 15.00 mmHg TR Peak Gr.: 36.21 mmHg PA Pressure: 51.00 mmHg Left Ventricle Left ventricle is at the upper limits of normal. There is global hypokinesis of the left ventricle. There is normal left ventricular wall thickness. Left ventricular systolic function is severely decreased. LVEF is 20-25%. This study is not technically sufficient to allow evaluation of the LV diastolic function. Right Ventricle Right ventricle is dilated. Right ventricle is hypokinetic. Device lead is present in the right ventricle. Atria Left atrium is moderately dilated. Right atrium is dilated. Device lead is present in the right atrium. Aortic Valve The aortic valve is normal in structure. Trace aortic regurgitation. There is no aortic valvular stenosis. Mitral Valve The mitral valve is normal in structure. Mild mitral regurgitation. No evidence of mitral valve stenosis. Tricuspid Valve The tricuspid valve is normal in structure. Severe tricuspid regurgitation. Pulmonary artery pressure is 51 mmHg. Pulmonic Valve [facility] [place] [address] 2 D/M-MODE ECHOCARDIOGRAM Name: SPARKSJOHN Room #: 205-P [facility] IN M.R.#: [id number] Admission: 08/01/20 Attend Phys: Kishore Escalera Discharge: Date of : 66 Report #: [id number] The pulmonary valve is normal in structure. Moderate to severe pulmonic regurgitation. Great Vessels The aortic root is normal in size. The ascending aorta is normal in size. IVC is dilated and collapses <50% with inspiration. Pulmonary artery is dilated. Pericardium There is no pericardial effusion. <Conclusion> Left ventricle size in the upper limits of normal with normal wall thickness Severe global hypokinesis ejection fraction of 20-25% Moderate ventricle mildly dilated/hypokinetic Moderate biatrial enlargement Color-flow Doppler study performed the aortic/mitral/tricuspid/pulmonary valve Mild aortic valve sclerosis without stenosis Mild mitral valve insufficiency Severe tricuspid valve insufficiency Moderate pulmonary hypertension PA pressure systolic estimated 51 mmHg No pericardial effusion <ELECTRONICALLY SIGNED> By: Skyler Bliss MD, FACC 08/04/20703 3 3 Skyler Bliss MD, FACC /INF
--- NOTE | 2020-08-04 08:57 | EKG ---
[address] [address] ELECTROCARDIOGRAM REPORT Name: JOHN SPARKS Room #: 205-[facility] IN ..#: [id number] Admission: 08/01/20 Attend Phys: Jhonny Doshi MD Discharge: Date of : 66 Report #: [id number] [facility] Test Date: 2020-08-04 Test Time: 00:34:44 Pat Name: JOHN SPARKS Department: Room: 205 Gender: F Manager Universal: MARY : 1970 Requested By: Nikki Lara Order Number: [id number] MD: Skyler Bliss Measurements Intervals [place] Rate: 104 P: ME: QRS: 259 QRSD: 107 T: QT: 459 QTc: 604 Interpretive Statements Atrial fibrillation Right superior axis Prolonged QT interval Lead(s) II,V6 were not used for morphology analysis Compared to ECG 08/01/2020 14:53:19 Prolonged QT interval now present Electronically Signed On 08-04-2020 8:57:47 PIECE GOODS CLERK by Skyler Bliss [email or web address] <ELECTRONICALLY SIGNED> By: Skyler Bliss MD, [facility] 08/04/20 0857 0034 0034 Skyler Bliss MD, [facility] /EPI
--- NOTE | 2020-08-04 19:29 | NUR ---
PT CARE ASSUMED AT 0700. ASSESSMENTS CHARTED. MEDICATIONS CHARTED. LSC IV. AFIB. MORBIDLY OBESE. ASSIST X 2, MINIMUM TO TURN. CPAP AT [facility]. ÁLVAREZ. RFA IV, D/C BY PT. ACHS.
--- NOTE | 2020-08-05 03:12 | NUR ---
NO EVENTS OVERNIGHT. PT REFUSES TO WEAR CPAP WITH EXCUSE OF BEING ON THE PHONE. NO C/O . DENIES PAIN, TAMARA DISCOMFORT, N/V/D. WILL CONTINUE TO MONITOR.
[2020-08-05 03:39] VITALS: BP 114/74
[2020-08-05 03:49] LABS: ALBUMIN 2.7 g/dL (3.4-5.0); CALCIUM 9.3 mg/dL (8.5-10.1); POTASSIUM 3.7 mmol/L (3.5-5.1)
[2020-08-05 07:57] VITALS: BP 96/64
--- NOTE | 2020-08-05 12:09 | HC ---
[facility] [place] [address] CONSULTATION Name: JOHN SPARKS Room #: 205-P ADM IN M.R.#: [id number] Admission: 08/01/20 Attend Phys: Jhonny Doshi MD Discharge: Date of : 66 Report #: [id number] THIS REPORT FOR: cc: He Rudd Kevin E. DO Al-Absi, Ahmed I. MD ~ REASON FOR CONSULTATION: Elevated creatinine. REASON FOR PRESENTATION: Weakness, shortness of breath. HISTORY OF PRESENT ILLNESS: This is a 49-year-old unfortunate, morbidly obese person, who presented to the Emergency Room reporting that she has been having major issues with shortness of breath. She was found to be hypotensive, in AFib with RVR. She carries a diagnosis of severe cardiomyopathy with an ejection fraction of around 20%. She is also known to have severe pulmonary hypertension, obstructive sleep apnea, mild mitral valve insufficiency, moderate tricuspid valve insufficiency. She has a well-known chronic kidney disease and she was supposed to follow up with our kidney clinic; however, she lost to follow up. Her laboratory values in April, March of this year revealed that her baseline creatinine is around 2.0. When the patient presented to the Emergency Room yesterday, she was found to have a creatinine value of 3.4. Nephrology was asked to assist with the management of her diuresis, chronic kidney disease. PAST MEDICAL HISTORY: Extensive and includes the followin. Cardiomyopathy. 2. Status post automatic implantable cardioverter-defibrillator. 3. Anemia. 4. Morbid obesity. 5. Severe pulmonary hypertension. 6. Coronary artery disease. 7. Status post tonsillectomy. 8. Multiple cardiac catheterizations. 9. C-sections. ALLERGIES: ___. MEDICATIONS: 1. Ipratropium. 2. Albuterol. 3. Xarelto. 4. Carvedilol. 5. Torsemide. 6. Lispro insulin. FAMILY HISTORY: Significant for hypertension and diabetes mellitus. Her sister [facility] [address] [place] [address] CONSULTATION Name: BRIDGERJOHN Room #: 205-P [facility] IN ..#: [id number] Admission: 08/01/20 Attend Phys: Jhonny Doshi MD Discharge: Date of : 66 Report #: [id number] is on dialysis. REVIEW OF SYSTEMS: GENERAL: Significant for weakness and lethargy. CARDIOVASCULAR: Significant for shortness of breath. PULMONARY: No cough or hemoptysis, but significant shortness of breath. GASTROINTESTINAL: No nausea or vomiting. GENITOURINARY: She reported to decrease urine output before her presentation. NEUROLOGICAL: No headache, no dizziness. PHYSICAL EXAMINATION: GENERAL: Blood pressure is 102/66, pulse rate is 110, temperature is 36.6. HEAD AND NECK: Short neck. CHEST: Decreased air entry bilaterally with crackles. CARDIOVASCULAR: Distant S1, S2. ABDOMEN: Morbidly obese. No guarding, no rigidity. EXTREMITIES: Lower extremities, extensive edema with some wounds on the inner aspect of the thigh. LABORATORY VALUES: Revealed the following: White blood cell count 6.1. Sodium was 140, potassium was 5.3, BUN is 55, creatinine is 3.3. Chest x-ray reviewed and it was consistent with fluid overload. ASSESSMENT: 1. Acute kidney injury. 2. Chronic kidney disease with a baseline creatinine of around 2.0. 3. Pulmonary vascular congestions and edema. 4. Diffuse anasarca. 5. Multiple valvular abnormalities. 6. Severe pulmonary hypertension. 7. Obstructive sleep apnea. 8. Severe ischemic cardiomyopathy with ejection fractions of around 25%. 9. Atrial fibrillation. PLAN: 1. At this point, the patient is exhibiting a cardiorenal syndrome. The fluctuation in her creatinine is expected. Her baseline creatinine is around 2.0. She is above her baseline. This is related to her volume overload. I will initiate the patient on IV diuresis. 2. Avoid nephrotoxins. 3. Monitor your blood pressure and avoid aggressive blood pressure treatment. 4. Continue to monitor electrolytes and urine output. 5. Counseling about compliance as an outpatient. 6. I will decide about further plans regarding her kidney function after an [facility] [address] [place] [address] CONSULTATION Name: JOHN SPARKS Room #: 205-P [facility] IN .R.#: [id number] Admission: 08/01/20 Attend Phys: Jhonny Doshi MD Discharge: Date of : 66 Report #: [id number] initial phase of IV diuresis while monitoring her renal function. Thank you for the consultation. We will continue to follow. <ELECTRONICALLY SIGNED> By: You English MD 08/05/20 1209 0819 0940 You English MD /nt
[2020-08-05 12:47] VITALS: BP 109/60
--- NOTE | 2020-08-05 13:04 | NUR ---
Assess due to notification of pt with bilatera thigh wounds which have been chronic. Extreme class III obesity, BMI 76, and admitted with CHF. Hx DM, BG 166-200. Unfortunately, wts have increased nearly 50 lb since last admit this year. Hx noncompliance with CPAP, lifestyle. Needs increase protein but not extra caloric source, so will offer Ensure Max (160 diane/30g protein) supplement 1x day. Intake has been 50-75% meals. Add carb control to diet order. Low nutrition risk with appropriate nutrition interventions in place
--- NOTE | 2020-08-05 16:31 | NUR ---
Patient admits from home. She was recently approx 3 weeks ago discharged from skilled care from [facility]. She was arranged HH with [facility] but patient prefers referral to [facility]. [facility] She uses mostly wheelchair but reports some difficulty with transfers. She reports a alma delia lift has been ordered but not received at this time. She cannot recall agency that was ordered. Patient would benefit from therapy evals. PCP Dr Alida Markham.
[2020-08-05 16:39] VITALS: BP 110/56
--- NOTE | 2020-08-05 18:44 | NUR ---
PT IS AOX4, VSS, PAIN CONTROLLED WITH ORAL ANALGESIC. PT REMAINS ON TELE MONITOR. IV PATENT IN LUE, UP TO BSC WITH MAX ASSIST. TRANSFERRED TO [facility] BED, FALL PRECAUTIONS IN PLACE. CALL LIGHT IN REACH, WILL CONTINUE TO MONITOR.
[2020-08-05 20:45] VITALS: BP 115/59
[2020-08-06 04:45] VITALS: BP 120/77
[2020-08-06 05:43] LABS: HEMATOCRIT 29.8 % (37.0-47.0); HEMOGLOBIN 9.5 gm/dL (12.0-15.0); MCH 27.3 pg (26.0-34.0); MCHC 31.8 g/dL (28.0-37.0); MCV 85.9 fL (80.0-100.0); RBC 3.46 mil/uL (4.20-5.00); RDW 20.6 % (10.5-14.5); WBC 5.3 thou/uL (4.0-11.0)
[2020-08-06 05:47] LABS: CALCIUM 9.3 mg/dL (8.5-10.1); CREATININE 2.8 mg/dL (0.6-1.0); POTASSIUM 3.4 mmol/L (3.5-5.1)
--- NOTE | 2020-08-06 07:55 | NUR ---
PT ALERT AND ORIENTED. VITALS STABLE , AFIB OR THE MONITOR. THIS AM, PT NOTED TO HAVE BLOODY URINE MORE THAN BASELINE, HGB 9.5. XARELTO ON HOLD FOR NOW UNTIL CLARIFIED. DENIES ANY OTHER CONCERNS. WILL CONTINUE TO MONITOR AND FOLLOW POC
--- NOTE | 2020-08-06 11:22 | NUR ---
Spoke with patient alerted [facility] if full. Discussed recommendation of post acute care. Patient does not want to return to [facility]. She wants intense therapy. Referral to [facility], and [facility].
[2020-08-06 12:00] VITALS: BP 116/60
--- NOTE | 2020-08-06 13:59 | NUR ---
FAXED REFERRAL TO [facility] RECEIVED CONFIRMATION AND LEFT MSG WITH LAURA IN ADM. FAXED REFERRAL TO [facility] SPOKE WITH IMELDA IN ADM SHE RECEIVED REFERRAL AND WILL REVIEW.
--- NOTE | 2020-08-06 15:18 | NUR ---
PT IS AOX4, VSS, NO C/O PAIN. PT WORKING WITH PT/OT WELL. PT UNABLE TO GET OUT OF BED AND STAND UP. FALL PRECAUTIONS IN PLACE, CALL LIGHT IN REACH. WILL CONTINUE TO MONITOR.
[2020-08-06 16:00] VITALS: BP 106/68
[2020-08-06 20:10] VITALS: BP 127/70; BP 129/68
[2020-08-07] VITALS (9 sets, daily range): BP systolic 106–120; BP diastolic 62–74
[2020-08-07 05:16] LABS: ALBUMIN 2.7 g/dL (3.4-5.0); CALCIUM 9.4 mg/dL (8.5-10.1); CREATININE 2.7 mg/dL (0.6-1.0); PHOSPHORUS 4.1 mg/dL (2.6-4.7); POTASSIUM 3.7 mmol/L (3.5-5.1)
--- NOTE | 2020-08-07 05:51 | NUR ---
CARE ASSUMED 1899. PT ALERT AND ORIENT X 4. VITALS STABLE. BEDS SWITCHED OVERNIGHT. PT ALSO HAD A BOWEL MOVEMENT, ASSIST X 4 TO THE BEDSIDE COMMODE. DENIES BNAUSEA, VOMITING . NO CHEST PAIN, AFFIB RATE CONTROLLED ON THE MONITOR. WILL CONTINUE TO MONITOR
[2020-08-07 09:38] LABS: HEMATOCRIT 30.8 % (37.0-47.0); HEMOGLOBIN 9.6 gm/dL (12.0-15.0); MCH 27.1 pg (26.0-34.0); MCHC 31.3 g/dL (28.0-37.0); MCV 86.8 fL (80.0-100.0); RBC 3.55 mil/uL (4.20-5.00); RDW 21.3 % (10.5-14.5); WBC 6.3 thou/uL (4.0-11.0)
--- NOTE | 2020-08-07 14:53 | HC ---
[facility] [place] [address] CONSULTATION Name: JOHN SPARKS Room #: 205-P ADM IN M.R.#: [id number] Admission: 08/01/20 Attend Phys: Jhonny Doshi MD Discharge: Date of : 66 Report #: [id number] THIS REPORT FOR: cc: He Rudd,Nabil Perez MD ~ DATE OF SERVICE: 08/05/2020 WOUND CARE CONSULTATION PERSONAL PHYSICIAN: Dr. He Rudd. CHIEF COMPLAINT: Shortness of breath and multiple decubitus ulcers. HISTORY OF PRESENT ILLNESS: This is a 49-year-old black female who we followed in the remote past for leg ulcers and decubitus ulcers in her sacrococcygeal region. The patient is now admitted for shortness of breath and was noted to have several scattered decubitus ulcers in her sacral and gluteal region. We have been asked to follow her for these ulcerations. The patient does complain of mild pain associated with the ulcerations. PAST MEDICAL HISTORY: Significant for cardiomyopathy, anemia, morbid obesity, severe pulmonary hypertension, coronary artery disease, status post implantable cardioverter-defibrillator, chronic kidney disease. CURRENT MEDICATIONS: Multiple, I reviewed the patient's medication list. DRUG ALLERGIES: CIPRO AND AMIODARONE. SOCIAL HISTORY: The patient currently resides in a long-term care facility. FAMILY HISTORY: Not pertinent to current medical condition. REVIEW OF SYSTEMS: CONSTITUTIONAL: The patient denies fevers or chills. NEUROLOGIC: The patient complains of overall generalized weakness, but no isolated weakness in arms or legs. EYES: No complaints. ENT: No complaints. CARDIAC: The patient has chronic lower extremity edema. At this time, denies chest pain or palpitation. RESPIRATORY: The patient complains of shortness of breath with dyspnea on exertion. GASTROINTESTINAL: The patient denies nausea, vomiting, abdominal pain. GENITOURINARY: The patient denies urgency or frequency. The patient does have [facility] [address] [place] [address] CONSULTATION Name: DAT SPARKSPhoebe Andrea Room #: [address] [place] [address] [place] [facility].#: [id number] Admission: 08/01/20 Attend Phys: Jhonny Doshi MD Discharge: Date of : 66 Report #: [id number] a Garcia catheter in place. MUSCULOSKELETAL: No complaints. SKIN: There are multiple decubitus ulcers in the sacrococcygeal and posterior thigh region. PHYSICAL EXAMINATION: VITAL SIGNS: Temperature 36.2, pulse 98, respirations 18, BP 120/77. GENERAL: This is an alert and oriented x3, super morbidly obese, black female who is in mild distress secondary to symptoms. HEENT: Normocephalic, atraumatic. Mucous membranes are somewhat dry. Pupils are round. Sclerae white. NECK: Has no significant JVD. LUNGS: Diminished breath sounds heard throughout. HEART: Regular. ABDOMEN: Obese, soft, nontender. EXTREMITIES: Evaluation of the bilateral gluteal region reveals multiple scattered stage 3 pressure ulcers, all of which are fairly clean and granulating. There are also multiple scattered stage 3 decubitus ulcers to the posterior thighs, which again are fairly clean and granulating. EXTREMITIES: The patient moves all extremities with somewhat limited range of motion. Bilateral heels are intact. NEUROLOGIC: Cranial nerves 2-12 are grossly intact. Motor and sensory grossly intact. LABORATORY DATA: White count 5.3, hemoglobin 9.5, creatinine 2.8, BUN 51, albumin 2.7. IMPRESSION: 1. Multiple scattered stage 3 decubitus ulcer in bilateral gluteal regions, none of which appear to be infected. 2. Multiple scattered stage 3 pressure ulcers to the posterior thighs, none of which appear to be infected. 3. Super morbid obesity. 4. Congestive heart failure with cardiomyopathy. 5. Coronary artery disease. 6. Type 2 diabetes. 7. Severe protein-calorie malnutrition with an albumin of 2.7. PLAN: For the scattered areas of the gluteal and posterior thigh region, we will use Z-Guard, leave it open to air, place this twice daily and p.r.n. soilage. We will have the patient put on a bariatric bed, have her turned every 2 hours. We will make sure to try to maximize the patient's oral protein supplementation as able per her renal restrictions. For her generalized debility, we will have her do physical and occupational therapy as able. Continue all other current medications. We will continue to follow the patient. [address] [address] CONSULTATION Name: JOHN SPARKS Room #: 205-P [facility] IN ..#: [id number] Admission: 08/01/20 Attend Phys: Jhonny Doshi MD Discharge: Date of : 66 Report #: [id number] I appreciate the ability to consult. <ELECTRONICALLY SIGNED> By: Nabil Caruso MD 08/07/20 1453 1027 1204 Nabil Caruso MD /nt
--- NOTE | 2020-08-07 16:18 | NUR ---
[facility] accepting and submitting for auth. Attempted to discuss with patient but she is sound asleep.
--- NOTE | 2020-08-07 18:44 | NUR ---
PT CARE ASSUMED AT 0700. ASSESSMENTS CHARTED. MEDICATION CHARTED. DREA IV. AFIB. O2 2LPM NC ON OCCASION. HENRI. WOUNDS; Z-GUARD, PT REFUSED TO HAVE WOUNDS PHOTOGRAPHED TODAY, SLEEPING.
[2020-08-08] VITALS (8 sets, daily range): BP systolic 95–112; BP diastolic 52–66
--- NOTE | 2020-08-08 08:03 | NUR ---
PT SLEEPING AT START OF SHIFT. PT AWAKENS EASILY WITH VERBAL AND TACTILE STIMULATION. PT LETHARGIC UPON AWAKENING. PT RESTING IN BED THROUGHOUT SHIFT, FREQUENT REPOSITIONING ENCOURAGED, SPECIALTY BED CONTINUES TO BE USED FOR Q2HR TURN. PT DENIES PAIN AND SOB WHILE ON 2L O2 VIA NC. PT TOLERATING PO INTAKE OF FLUIDS AND CARB CONTROLLED DIET. PT DENEIS NAUSEA. PT VOIDING PER INDWELLING ÁLVAREZ, INCONTINENT OF BOWEL. PT ENCOURAGED TO NOTIFY STAFF FOR ALL NEEDS, CALL LIGHT WITHIN REACH, BED ALARM ON, BED IN LOWEST POSITION, FREQUENT MONITORING WILL CONTINUE.
[2020-08-08 09:42] LABS: ALBUMIN 2.6 g/dL (3.4-5.0); CALCIUM 9.5 mg/dL (8.5-10.1); CREATININE 2.6 mg/dL (0.6-1.0); PHOSPHORUS 3.8 mg/dL (2.5-4.9); POTASSIUM 3.8 mmol/L (3.5-5.1)
--- NOTE | 2020-08-08 16:26 | NUR ---
FAXED CLINICAL UPDATE TO [facility] RECEIVED CONFIRMATION AND LEFT MSG WITH LAURA IN ADM.
--- NOTE | 2020-08-08 16:55 | NUR ---
At this time have not rec auth from [facility]. If auth not rec patient reluctantly agreeable to [facility]. [facility] [phone]. Ign [phone] to determine if accecpting of patient.
--- NOTE | 2020-08-08 19:13 | NUR ---
PT CARE ASSUMED AT 0700. ASSESSMENTS CHARTED. MEDICATIONS CHARTED. DREA ÁLVAREZ. PHYSICAL THERAPY GOT PT TO STAND WHILE BED WAS CHANGED. PT HAD MILD NAUSEA IN AFTER NOON.
[2020-08-09 04:07] LABS: ALBUMIN 2.5 g/dL (3.4-5.0); CALCIUM 9.3 mg/dL (8.5-10.1); CREATININE 2.6 mg/dL (0.6-1.0); MAGNESIUM 2.4 mg/dL (1.8-2.4); PHOSPHORUS 4.1 mg/dL (2.6-4.7); POTASSIUM 3.6 mmol/L (3.5-5.1)
--- NOTE | 2020-08-09 05:12 | NUR ---
PT IS ALERT AND ORIENTED X4. LUNGS ARE DIMINISHED. CURENTLY SLEEPING ON BIPAP AT THIS TIME. DENIES ANY COMPLAINTS OF PAIN. PT RESTING COMFORTABLY. ABDOMEN IS ROUND. WOUND CARE TREATMENT DONE. PT IS OBESE AND REQUIRES EXTRA HELP FOR TUNRING OR ASSISTING AT THIS ANY FOR POINT OF CARE. CALL LIGHT WTITHIN REACH IF NEEDS ASSISTANCE. PER ELIZABETH.
[2020-08-09 05:21] VITALS: BP 105/64
[2020-08-09 07:30] VITALS: BP 104/56
[2020-08-09 12:25] VITALS: BP 114/66
[2020-08-09 15:41] VITALS: BP 121/59
--- NOTE | 2020-08-09 18:32 | NUR ---
ASSUMED CARE OF PATIENT APPROX. 1525. PATIENT A&OX4, VSS, DENIES PAIN. PATIENT ROOM AIR, ÁLVAREZ, IV LEFT CHEST. PATIENT REFUSED DINNER. NO SIGNS OF DISTRESS. WILL CONTINUE TO MONITOR.
[2020-08-09 20:40] VITALS: BP 122/63
--- NOTE | 2020-08-10 06:50 | NUR ---
Assumed pt care at 1900. A/OX3-4,forgetful. VSS.Denies pain on assessment. Pt was adamant to get up to poop on BSC. Max assist of 4 including security help to get her up to BSC,but pt didn't poop. Pt has open areas on karly inner thighs,zguard applied. Resting with BIPAP in place which was placed at 0530,on a [facility] bed.
[2020-08-10 08:10] VITALS: BP 123/59
[2020-08-10] MEDS ORDERED: IMDUR 30 MG TAB30 M1 PO (11:00)
[2020-08-10] MEDS ORDERED: ASPIR 8181 MG PO (11:00)
[2020-08-10] MEDS ORDERED: COREG6.25 MG PO (11:00)
[2020-08-10] MEDS ORDERED: TORSEMIDE20 MG PO (11:01)
[2020-08-10] MEDS ORDERED: K-DUR10 MEQ PO (11:01)
--- NOTE | 2020-08-10 14:11 | NUR ---
ASSUMED PT CARE THIS AM. PT VSS, A&OX3. PT HAS NO COMPLAINTS OF PAIN. IN A BARIATRIC BED, DOC MATTRESS. PT WOUND PICTURES TAKEN. PT REPORTS BEING CONSTIPATED BUT IS DENYING MEDICATION FOR IT AT THIS TIME. TRANSPORTATION WAS SET UP FOR 1300 FOR PT TO DISCHARGE, BUT PT IS NOT ABLE TO USE THE WALKER THAT THEY BROUGHT. CONTACTED [facility] AND APPROPRIATE STRETCHER WILL BE ANGE FOR PATIENT TRANSPORT AT 1800. FACILITY CALLED AND MADE AWARE.
[2020-08-10 16:40] VITALS: BP 91/53
[2020-08-10 18:07] VITALS: BP 145/55
--- NOTE | 2020-08-11 05:10 | NUR ---
Pt. rested quietly during the night when checked on during frequent rounds. She offers no c/o pain. Incontinent of urine.
[2020-08-11 08:53] VITALS: BP 78/54
[2020-08-11 12:20] LABS: ALBUMIN 2.6 g/dL (3.4-5.0); CREATININE 3.1 mg/dL (0.6-1.0); PHOSPHORUS 4.9 mg/dL (2.6-4.7); POTASSIUM 4.1 mmol/L (3.5-5.1)
--- NOTE | 2020-08-11 14:27 | NUR ---
ASSUMED PT CARE THIS AM. CALLS APPROPRIATELY WHEN NEEDED. PT COMPLAINING OF BEING CONSTIPATED, GIVEN MEDS PER EMAR TO RESOLVE THIS ISSUE. NO IV PRESENT OKAY'D BY . REPORT CALLED TO [facility], GIVEN TO CAPRICE. TOOK MEDS WELL THIS AM WITHOUT COMPLAINT. PT PICKED UP AT THIS TIME TO DISCHARGE TO FACILITY.
[2020-08-12] MEDS ORDERED: XARELTO20 MG PO (23:43)
[2020-08-12] MEDS ORDERED: ASA81BEC PO (23:44)
[2020-08-12] MEDS ORDERED: cholecalciferol PO (23:45)
== END 2020-08-11 14:30 | DRG 280 ==
LOC: ER 14:08 → 2N 17:43 → EROBS 17:43 → 2N 08-02 09:22 → 4W 08-09 15:10
PROVIDERS: Emergency Medicine; Hospitalist; Internal Medicine Nephrology; Nurse Practitioner; ADMIT Hospitalist; ATTEND Hospitalist
PROC: 5A09357 Assistance with Respiratory Ventilation, Less than 24 Consecutive Hours, Continuous Positive Airway Pressure (ICD-10-PCS; principal; 2020-08-04)
PROC: 5A09357 Assistance with Respiratory Ventilation, Less than 24 Consecutive Hours, Continuous Positive Airway Pressure (ICD-10-PCS; 2020-08-06)
PROC: 5A09357 Assistance with Respiratory Ventilation, Less than 24 Consecutive Hours, Continuous Positive Airway Pressure (ICD-10-PCS; 2020-08-08)
PROC: 5A09357 Assistance with Respiratory Ventilation, Less than 24 Consecutive Hours, Continuous Positive Airway Pressure (ICD-10-PCS; 2020-08-10)
DX: I13.0 Hypertensive heart and chronic kidney disease with heart failure and stage 1 through stage 4 chronic kidney disease, or unspecified chronic kidney disease (principal); I21.A1 Myocardial infarction type 2; L89.893 Pressure ulcer of other site, stage 3; I50.23 Acute on chronic systolic (congestive) heart failure; L89.323 Pressure ulcer of left buttock, stage 3; L89.313 Pressure ulcer of right buttock, stage 3; E43 Unspecified severe protein-calorie malnutrition; N17.9 Acute kidney failure, unspecified; I48.21 Permanent atrial fibrillation; Z68.45 Body mass index [BMI] 70 or greater, adult; N39.0 Urinary tract infection, site not specified; I42.0 Dilated cardiomyopathy; I25.5 Ischemic cardiomyopathy; K57.30 Diverticulosis of large intestine without perforation or abscess without bleeding; G47.33 Obstructive sleep apnea (adult) (pediatric); N18.30 Chronic kidney disease, stage 3 unspecified; E11.22 Type 2 diabetes mellitus with diabetic chronic kidney disease; E78.00 Pure hypercholesterolemia, unspecified; E66.01 Morbid (severe) obesity due to excess calories; E78.5 Hyperlipidemia, unspecified; M10.9 Gout, unspecified; F43.10 Post-traumatic stress disorder, unspecified; I27.20 Pulmonary hypertension, unspecified; F41.9 Anxiety disorder, unspecified; F10.10 Alcohol abuse, uncomplicated; Y90.9 Presence of alcohol in blood, level not specified; I25.10 Atherosclerotic heart disease of native coronary artery without angina pectoris; Z20.822 Contact with and (suspected) exposure to COVID-19; I25.2 Old myocardial infarction; Z98.891 History of uterine scar from previous surgery; Z79.4 Long term (current) use of insulin; Z79.899 Other long term (current) drug therapy; Z88.1 Allergy status to other antibiotic agents; Z99.3 Dependence on wheelchair; Z91.14 Patient's other noncompliance with medication regimen; Z95.810 Presence of automatic (implantable) cardiac defibrillator; Z23 Encounter for immunization
CPT/HCPCS: 10045; 10081

== ENCOUNTER 2020-08-12 15:27 | Inpatient (IN) | payer OTHER ==
[~2020-08-12] VITALS: Ht 160 cm; Wt 214.3 kg
[~2020-08-12 15:27] MED LIST changes: +ASPIR 8181 MG PO; +COREG6.25 MG PO; +DOXYCYCLINE 10100 M2 PO; +IMDUR 30 MG TAB30 M1 PO; +K-DUR10 MEQ PO
[2020-08-12 15:29] VITALS: BP 94/50
[2020-08-12 15:54] LABS: ABSOLUTE NEUTROPHILS 8.7 thou/uL (1.4-8.2); BASOPHILS 0.8 % (0.0-2.0); EOSINOPHILS 0.2 % (0.0-3.0); HEMATOCRIT 27.3 % (37.0-47.0); HEMOGLOBIN 8.8 gm/dL (12.0-15.0); LYMPHOCYTES 6.4 % (24.0-44.0); MCH 27.7 pg (26.0-34.0); MCHC 32.2 g/dL (28.0-37.0); MONOCYTES 8.5 % (1.0-8.0); PLATELET COUNT 153 thou/uL (150-400); POLYS 84.1 % (36.0-66.0); RBC 3.18 mil/uL (4.20-5.00); RDW 20.8 % (10.5-14.5); WBC 10.4 thou/uL (4.0-11.0)
[2020-08-12 16:00] LABS: CALCIUM 9.5 mg/dL (8.5-10.1); CREATININE 3.4 mg/dL (0.6-1.0); POTASSIUM 4.9 mmol/L (3.5-5.1)
--- NOTE | 2020-08-12 16:00 | NUR ---
CONSENT SIGNED FOR CENTRAL LINE BY JOSE CLEVELAND SINCE PT IS ALTERED.
--- NOTE | 2020-08-12 16:05 | EKG ---
[address] [place] [address] ELECTROCARDIOGRAM REPORT Name: JOHN SPARKS Room #: [facility]#: [id number] Admission: Attend Phys: Discharge: Date of : 66 Report #: [id number] [facility] ED Test Date: 2020-08-12 Test Time: 15:33:54 Pat Name: JOHN SPARKS Department: Room: Gender: F Field Sales Manager: SVETLANA : 1970 Requested By: Aquiles Paige Order Number: [id number] MD: Skyler Bliss Measurements Intervals [place] Rate: 101 P: 0 AR: QRS: 11 QRSD: 93 T: QT: 415 QTc: 538 Interpretive Statements Low voltage, suspect AFIB Compared to ECG 08/04/2020 00:34:44 Low voltage Electronically Signed On 08-12-2020 16:05:03 FOREIGN POLICY OFFICER by Skyler Bliss [email or web address] <ELECTRONICALLY SIGNED> By: Skyler Bliss MD, [facility] 08/12/20 1605 1533 1533 Skyler Bliss MD, FACC /EPI
[2020-08-12 16:11] LABS: ALBUMIN 2.5 g/dL (3.4-5.0); DIRECT BILIRUBIN 6.4 mg/dL (<0.1-0.2); TOTAL BILIRUBIN 7.3 mg/dL (0.2-1.0); TOTAL PROTEIN 7.6 g/dL (6.4-8.2); TROPONIN-I 0.11 ng/mL (<0.06)
[2020-08-12 16:19] LABS: BE(vivo) 3.7 mmol/L (-2 to +3); HCO3 29.4 mmol/L (22.0-26.0); PCO2 50.9 mmHg (35.0-45.0); PO2 70.3 mmHg (80.0-100.0); sO2 93.6 % (92.0-98.0)
--- NOTE | 2020-08-12 17:49 | NUR ---
VAT CONSIULTED FOR A CL FOR THIS PT. ATTEMPT X1 TO RT IJ AND WIRE WOULD NOT THREAD, ATTEMPT TO LT IJ AND AGAIN WIRE WOULD NOT THREAD. MIDLINE NOT PLACED VESSELS TO DEEP FOR NEEDLE PENETRATION. PIV 20G PLACED MD LIDA ADVISED.
[2020-08-12 22:03] LABS: URINE BILIRUBIN 2+ (Negative); URINE BLOOD 3+ (Negative); URINE CLARITY SL CLOUDY; URINE COLOR YELLOW; URINE GLUCOSE-RANDOM* TRACE (Negative); URINE KETONES TRACE (Negative); URINE NITRITE-REFLEX NEGATIVE (Negative); URINE PROTEIN (DIPSTICK) NEGATIVE (Negative); URINE SPECIFIC GRAVITY 1.025 (1.005-1.035)
[2020-08-12 22:13] LABS: AMP/METHAMP Negative (Negative); BARBITURATES Negative (Negative); BENZODIAZEPINES Negative (Negative); COCAINE Negative (Negative); METHADONE Negative (Negative); OPIATES POSITIVE (Negative); PCP Negative (Negative)
[2020-08-12 22:17] LABS: URINE LEUKOCYTES-REFLEX 1+ (Negative)
[2020-08-12 22:20] LABS: ICTOTEST (BILI CONFIRMATORY) Positive (Negative)
[2020-08-12 22:26] LABS: BACTERIA-REFLEX 1-9 Few /HPF (None Seen); CASTS None Seen /LPF (None Seen); CRYSTALS None Seen /LPF (None Seen); SQUAMOUS 0-3 Few /LPF (0-3); URINE RBC 3-10 Few /HPF (0-2); URINE WBC-REFLEX 6-15 Few /HPF (0-5); YEAST-REFLEX Present (None Seen)
[2020-08-12] MEDS ORDERED: XARELTO20 MG PO (23:43)
[2020-08-12] MEDS ORDERED: ASA81BEC PO (23:44)
[2020-08-12] MEDS ORDERED: cholecalciferol PO (23:45)
[2020-08-13 04:01] LABS: ABSOLUTE NEUTROPHILS 8.8 thou/uL (1.4-8.2); BASOPHILS 0.6 % (0.0-2.0); EOSINOPHILS 0.1 % (0.0-3.0); HEMATOCRIT 28.5 % (37.0-47.0); HEMOGLOBIN 9.2 gm/dL (12.0-15.0); LYMPHOCYTES 6.2 % (24.0-44.0); MCH 28.1 pg (26.0-34.0); MCHC 32.4 g/dL (28.0-37.0); MCV 86.7 fL (80.0-100.0); MONOCYTES 2.2 % (1.0-8.0); PLATELET COUNT 134 thou/uL (150-400); POLYS 90.9 % (36.0-66.0); RBC 3.29 mil/uL (4.20-5.00); WBC 9.6 thou/uL (4.0-11.0)
[2020-08-13 04:16] LABS: ALBUMIN 2.5 g/dL (3.4-5.0); CALCIUM 9.6 mg/dL (8.5-10.1); CREATININE 3.4 mg/dL (0.6-1.0); MAGNESIUM 3.3 mg/dL (1.8-2.4); POTASSIUM 4.7 mmol/L (3.5-5.1); TOTAL BILIRUBIN 7.8 mg/dL (0.2-1.0); TOTAL PROTEIN 7.8 g/dL (6.4-8.2)
--- NOTE | 2020-08-13 05:48 | NUR ---
damon mccallum facility practice specialist, several stat consults ordered last night prior to shift change. per karlee consults for renal and cardiology can be called routine later this morning; but would like consult for pulmonary to be called now.
--- NOTE | 2020-08-13 08:42 | NUR ---
ELEVATED MOTORMAN SPOKE WITH DR DAVILA REGARDING PT'S NPO STATUS. PT IS TO RECEIVE SCHEDULED INSULIN. PER DR DAVILA, NPO STATUS SHOULD BE D/C AND PT PLACE ON CARB CONTROLLED DIET.
[2020-08-13 09:12] LABS: ANISOCYTOSIS 1+; PLATELET ESTIMATE NORMAL; TARGET CELLS 2+
[2020-08-13 13:57] VITALS: BP 115/50
--- NOTE | 2020-08-13 14:33 | NUR ---
Patient last discharged on 08-08-2020 and was discharged to [facility]. Patient had wanted to be discharged to [facility] but they could not obtain authorization at that time from [employer]. Pt presented to the ED from the [place] with rec. dyspnea, tachypnea, and supposed AMS observed by the staff. Patient was admitted with: Acute on chronic toxic metabolic encephalopathy, acute on chronic respiratory failure, Morbid obesity, Chronic bilateral wounds, Asthma, HTN, DM2, CAD, CKD, Depression. Patient being treated for above and will have therapy evaluations to determine discharge destination. NOTE: PT and OT orders are in - PCR COVID is negative. Notably the patient lives with her sons and daughters prior to d/c to [facility] on 08/08. Patient is listed as alert and oriented. CM to follow for discharge needs.
[2020-08-13 20:37] LABS: HCO3 21.4 mmol/L (22.0-26.0); pH 7.392 (7.360-7.450); sO2 94.1 % (92.0-98.0)
--- NOTE | 2020-08-13 21:12 | NUR ---
[facility] HERE TO TRANSPORT PT [facility]
[2020-08-14] VITALS (60 sets, daily range): BP systolic 58–148; BP diastolic 38–96
--- NOTE | 2020-08-14 01:39 | NUR ---
Pt admitted to ICU room 236 at 0000 from ED holding area. Pt has been in ED holding since 08/12/20 at approximately 1530. Pt lethargic but arouses easily to voice, oriented to self only. Monitor shows a-fib with rate 90-105. Levophed 20 mcg/min infusing right arm IV site to maintain MAP > 60. Levophed stopped for 5 minutes while pt transferred to ICU bed and SBP dropped to 58. BP came back up as soon as Levophed restarted. Now able to titrate down slowly, rate currently 16 mcg/min, MAP 93. Pictures taken of open areas on buttock, thighs, face, and sternum. Pt on CPAP 10 cmH2O with 2 L O2, sat 97-100%. Garcia patent with cloudy, dark yocasta urine, output appears adequate. Pt had moderate amount of liquid brown stool on arrival to unit. Pt's sister, Leana, updated on transfer and pt status at approximately 0045.
[2020-08-14 09:22] LABS: ALBUMIN 2.6 g/dL (3.4-5.0); CREATININE 3.7 mg/dL (0.6-1.0); PHOSPHORUS 5.9 mg/dL (2.6-4.7)
--- NOTE | 2020-08-14 11:50 | NUR ---
WOUND CONSULT; THIS PATIENT IS OBESE. SHE HAS SCABED/NECROTIC WOUND TO HER CHEST,FACE THIGH. SHE HAS MULTIPLE AREAS IN THE SKIN FOLDS. THE LEFT BUUTOCK, RIGHT INNER THIGH AND LEFT BUTTOC HAVE WOUNDS OF UKNOWN ORIGIONS. RECOMMENDATIONS; -CONSULT DR VALENTIN VOSS. -PAINT SCABBED YESY FOR NOW WITH BETADINE, -APPLY ZGUARD TO ALL BUTTOCKS AND INNER THIGH AREAS. RN PRESENT.
[2020-08-14 20:35] LABS: CALCIUM 9.9 mg/dL (8.5-10.1); CREATININE 3.6 mg/dL (0.6-1.0); PHOSPHORUS 5.9 mg/dL (2.6-4.7)
[2020-08-15] VITALS (27 sets, daily range): BP systolic 78–123; BP diastolic 10–96
[2020-08-15 05:09] LABS: WBC 8.4 thou/uL (4.0-11.0)
[2020-08-15 05:11] LABS: HEMATOCRIT 28.8 % (37.0-47.0); HEMOGLOBIN 9.2 gm/dL (12.0-15.0); MCH 27.7 pg (26.0-34.0); MCHC 31.9 g/dL (28.0-37.0); MCV 86.8 fL (80.0-100.0); RBC 3.32 mil/uL (4.20-5.00); RDW 20.8 % (10.5-14.5)
[2020-08-15 05:40] LABS: ALBUMIN 2.3 g/dL (3.4-5.0); CALCIUM 9.5 mg/dL (8.5-10.1); CREATININE 3.6 mg/dL (0.6-1.0); PHOSPHORUS 5.3 mg/dL (2.5-4.9); POTASSIUM 4.7 mmol/L (3.5-5.1)
--- NOTE | 2020-08-15 08:41 | NUR ---
0700-ASSUMED CARE OF PT.--VW 0840-PT'S HABITUS FILLS THE BED SIDE TO SIDE.WAS INFORMED THAT SPECIAL BED FOR OBESITY IS NOT AVAILABLE-ALL IN USE [facility].UNABLE TO TURN.PT IN OPTIREST MODE W HOB UP RAISA. IN.PLANS TO CALL PT'S SISTER.--VW
--- NOTE | 2020-08-15 10:56 | NUR ---
VAT DISCUSSED WITH ANGI RN NEED FOR PERMANENT ACCESS DUE TO PT'S OBESITY. VESSELS ARE TOO DEEP FOR PIV'S.
--- NOTE | 2020-08-15 15:16 | NUR ---
cm spk with pt's son, staci, has d/t icu enhanced precaution protocol. pt admitted to the hospital from [facility] to increse mobility. pt lives home w/two adult sons who help w/adls. pt has walker and w/c. pt has been homebound as of recently d/t fluid build up making it more difficult for pt to ambulate. cm contact fabián, admission, at [facility], and she will "check into, but she doesnt believe they hold snf beds, and they are "reviewing constantly but as of right now we dont have a bed for her." if pt's bed hasnt been held. fabián to contact christopher w/update.
--- NOTE | 2020-08-15 19:50 | NUR ---
Transferred from ICU at 1800; transferred to bed safely. A+Ox3. On O2 at 2lpm via nasal cannula. Vital signs stable. On MS, not on telemetry; no complains and signs of chest pain, crushing sensation and heaviness; with AICD. On soft diet- refused dinner; no nausea, no nausea, no vomiting and no abdominal pain noted. On blood sugar monitoring, taken and recorded accordingly. With fecal management in place- output measured and recorded accordingly. With lund in place- draining well; output measured and recorded accordingly. Falls bundle in place. On bariatric bed. Pt refusing to be turned this evening. With TICC at R subclavian- C/D/I. With SL at R FA- intact. With interdry in place. With multiple wounds- dressing changed today by previous nurse. Maintained on isolation due to syhphillis. Able to have a bowel movement today as per previous nurse- charted. Complained of pain, no PRN pain meds prescribed- Dr Lee informed; may have tylenol, orders obtained- given as prescribed. To continue monitoring patient. Pt's sister called, update given- requested to talk to patient; call transferred.
--- NOTE | 2020-08-15 22:00 | NUR ---
Noted blood on the right side of patients gown. Upon assessment pt. has a superficial skin abrasion to the right side of lower abdomen. Area was cleansed with saline and ABD pad applied. Upon cleansing the site pt. right side of her abdomen is hard upon touch. Nikki JORDAN rounding on the unit and was informed. She also saw the pt. and put in new orders for abdominal ct scan.
[2020-08-16 07:07] VITALS: BP 101/63
[2020-08-16 12:43] LABS: BE(vivo) -0.3 mmol/L (-2 to +3); HCO3 24.7 mmol/L (22.0-26.0); PCO2 42.3 mmHg (35.0-45.0); PO2 59.1 mmHg (80.0-100.0); pH 7.385 (7.360-7.450); sO2 90.3 % (92.0-98.0)
--- NOTE | 2020-08-16 14:23 | NUR ---
Received asleep on bed; drowsy but rousable. On room air. Vital signs stable. On MS, not on telemetry; no complains and signs of chest pain, crushing sensation and heaviness. Cardio DAM TENDER Alexus here this morning asking why pt is not on telemetry, informed her that pt was transfer from ICU yesterday and based on transfer orders pt is on MS but on Dr Lee's notes it says pt can be transferred to [facility]- JOSE Vaughan verified with Dr Lee, pt to be on MS only. Pt more confused today- Dr Lee informed; ABG ordered. On mechanically soft diet- carb controlled- assisted in eating and drinking; no nausea, no vomiting and no abdominal pain noted. On blood sugar monitoring- taken and recorded accordingly; with sliding scale insulin ordered- given as prescribed. With fecal management in place- output measured and recorded accordingly. With lund in place- output measured and recorded accordingly. With R subclavian TICC line- dressing changed today; on IV antibiotics, IV lasix as well. With interdry at skin folds. Maintained on isolation due to syphillis lesions; on contact precaution. To continue monitoring patient. Pt put on NPO this AM, for ultrasound of abdomen- tolerated procedure well; resumed diet after ultrasound. Dr Lee informed results of ultrsound available- to review- physician acknowledged. ABG done by RT- no critical values noted; to put patient on O2 at 2lpm via nasal cannula- done.
[2020-08-16 20:00] VITALS: BP 106/46
[2020-08-17 05:51] LABS: ALBUMIN 2.2 g/dL (3.4-5.0); CALCIUM 9.3 mg/dL (8.5-10.1); CREATININE 3.8 mg/dL (0.6-1.0); PHOSPHORUS 4.6 mg/dL (2.5-4.9); POTASSIUM 3.8 mmol/L (3.5-5.1)
--- NOTE | 2020-08-17 06:27 | NUR ---
ASSUMED PT'S CARE BEGINNING OF THIS PM SHIFT. PT ALERT AND ORIENTED. CONFUSED AND FORGETFUL. THINKS ITS NOT YET . PT CAN BE RESISTIVE WITH CARE. TOOK MEDS PER EMAR. PT ON BARIATRIC BED. CONTINOUS PULSOX THIS SHIFT. CPAP AT HS. FALL PRECAUTION IN PLACE. REFUSES REPOSITIONING. TICC LINE TO RT CHEST FLUSHING AND DRAWING BACK BLOOD. CONTACT ISOLATION PRECAUTION REMAINS IN PLACE. WILL CONTINUE TO MONITOR.
--- NOTE | 2020-08-17 11:32 | NUR ---
PHYSICIAN DISCHARGED PT TODAY SPOKE WITH LAURA NICHOLS/[facility] SHE NEEDS TO SPEAK WITH DYANA BURROWS.CHAYA PT HAS NOT WORKED WITH THERAPY SINCE Jul THEY NEED CURRENT THERAPY NOTES WHEN AVAILABLE AND THEY DO NOT HAVE A BED AVAILABLE OVER THE WEEKEND. NOTIFIED NURSE ON UNIT. WILL F/U WITH [facility] ON WEDNESDAY.
--- NOTE | 2020-08-17 14:59 | NUR ---
Received awake on bed. Due medications given as prescribed, able to swallow meds w/o difficulty. On O2 at 2lpm via nasal cannula. On MS, not on telemetry; no complains and signs of chest pain, crushing sensation and heaviness. Pt still with confusion- Dr Lee aware. On mechanically soft diet- tolerating well; assisted and encouraged in eating and drinking; no nausea, no vomiting and no abdominal pain noted. With fecal management in place- output measured and recorded accordingly. With lund in place- output measured and recorded accordingly. With R subclavian TICC line, dressing C/D/I; on IV antibiotics. Falls bundle in place. Pt had a bed bath today; Z guard applied to wounds; interdry applied to skin folds. Pt refusing turns despite explanation and re-informing her re: importance of turning. Assisted in ADLs. Pt seen examined by Dr Lee this AM, discharge orders made. manager lpn informed re: discharge orders- will send discharge summary and referrals to previous facility; a/w response. NIA Cota called back- SNF does not have available beds over the weekend- Dr Lee informed re: this; a/w order to cancel discharge. To continue monitoring patient.
[2020-08-17 15:22] VITALS: BP 115/51
[2020-08-17 20:43] VITALS: BP 97/65
[2020-08-18 05:07] VITALS: BP 107/86
--- NOTE | 2020-08-18 05:43 | NUR ---
Assumed pt care at 1900. Pt A/O to self and place,lethargic and can't eyes open when spoken to. Pt able to talk to sister at HS with staff assistance. Garcia patent to DD with dark yellow urine,rectal tube in place with small amount of BM;pt has a lot of flatulence. Resting with BIPAP on w/o any distress noted. TICC in place,right subclavian and patent. Continues on contact isolation. Fall precautions in place,will continue to monitor pt.
[2020-08-18 05:53] LABS: ALBUMIN 2.2 g/dL (3.4-5.0); CALCIUM 9.4 mg/dL (8.5-10.1); CREATININE 3.8 mg/dL (0.6-1.0); PHOSPHORUS 4.5 mg/dL (2.6-4.7); POTASSIUM 3.5 mmol/L (3.5-5.1)
[2020-08-18 07:55] VITALS: BP 101/38
[2020-08-18 15:15] VITALS: BP 102/58
--- NOTE | 2020-08-18 15:29 | NUR ---
PATIENTS SISTER KEYUR CALLED AT 10 AM, I TOLD SISTER I WAS UNABLE TO SPEAK AT THAT TIME AND I WOULD GIVE HER A CALL BACK. SPOKE WITH SISTER AT 1500, SISTER UPSET THAT A CALL BACK WASNT GIVEN EARLIER.
[2020-08-18 20:03] VITALS: BP 98/60
--- NOTE | 2020-08-18 20:08 | NUR ---
PT A&OX2, VSS, NO APPARENT PAIN. PATIENT LETHARGIC, WOULD RESPOND BUT HAS HARD TIME ARTICULATING THOUGHTS. PATIENT FED SELF AND ATE APPROX 25% OF MEALS. PATIENT ECTOR CARES COMPLETED BY IN CLASSROOM TUTOR. PATIENT ROOM AIR THROUGH OUT DAY AND 96% SATS. PATIENT CONTINUE TO HAVE ÁLVAREZ AND FECAL SYSTEM. NO SIGNS OF DISTRESS. WILL CONTINUE TO MONITOR.
--- NOTE | 2020-08-19 04:00 | NUR ---
MIKOMD CARE OF PT AT 1900HRS. PT ALERT BUT ONLY ORIENTED TO PERSON. FALL PRECAUTION IN PLACE. FMS IN PLACE. ÁLVAREZ IN PLACE. PT REPORTED SOME PAIN AND PRN TYLENOL GIVEN. PT PLACED ON 1L O2 FOR HS PT REFUSED BIPAP THIS SHIFT. PT WAS ABLE TO GET COMFORTABLE AND SLEEP PART OF THE SHIFT. VSS AND NO S/S ACUTE DISTRESS. WILL CONTINUE TO MONITOR.
[2020-08-19 07:54] VITALS: BP 94/52
--- NOTE | 2020-08-19 12:02 | NUR ---
ASSUMED PT CARE THIS AM. PT HAS GENERALIZED EDEMA. ON A BARIATRIC BED WITH A DOC MATTRESS. HEEL PROTECTORS IN PLACE. TOOK MEDS WELL THIS AM. PT FUSSY WITH STAFF. CENTRAL LINE DRESSING CHANGED PT PULLED AT DRESSING. ÁLVAREZ AND FMS IN PLACE. IV PATENT, MEDS INFUSED WELL. FALL PRECAUTIONS IN PLACE.
--- NOTE | 2020-08-19 16:31 | NUR ---
CARE TEAM INDICATED THAT PT IS MEDICALLY STABLE TO DC TO [facility] THIS DAY. CM INDICATED TO CARE TEAM THAT THEY DON'T HAVE BEDS TO ACCEPT PT BACK AND THAT PT HADN'T BEEN SEEN BY THERAPY THIS SAY. CM ATTEMTPED TO VISIT WITH PT THIS DAY. CM CALLED AND LEFT VM WITH PT'S SISTER KEYUR. WILL LIKELY NEED TO SEND REFERRAL ELSEWHERE AND WILL NEED AUTH. NEED FOR PT TO PARTICIPATE IN THERAPY IN ORDER TO GET AITH. CM TO FOLLOW INDICATED WITH DC PLANNING.
[2020-08-19 19:44] VITALS: BP 119/60
--- NOTE | 2020-08-20 02:06 | NUR ---
PT ASSESSMENT COMPLETED AND VSS. MEDS GIVEN ORDERED AND WELL TOLERATED. FALL PRECAUTIONS IN PLACE. ÁLVAREZ DRAINING MODERATE AMOUNT OF DARK YELLOW URINE. FECAL MANAGEMENT SYSTEM WITH SMALL AMOUNT OF LIQUID STOOL IN THE TUBE. 0 IN THE DRAINAGE BAG SO FAR THIS EVENING. ASST WITH REPOSITION USING HELP FROM OTHER STAFF ON THE FLOOR. ZGUARD APPLIED TO SEVERAL RED AREAS. CLEANED ALL PT FUNGAL FOLDS AND PLACED INTERDRY CLOTH TO FOLDS. PRAFO BOOTS ON. PT WAS AWAKE FOR SEVERAL HOURS THIS EVENING. SHE WAS CONFUSED AND TALKING TO HERSELF IN THE ROOM. DAY RN STATED THAT PT HAD SLEPT ALL DAY. PT WIDE AWAKE AND YELLING AND CALLING OUT IN A LOUD VOICE WHICH WAS WAKING UP OTHER PATIENTS. CALLED SURGICAL SCRUB TECH GERONIMO. MELATONIN WAS ORDERED. BY THE TIME WE GOT THE DOSE PT WAS DROWSY AND DID NOT NEED TO GIVE DOSE. BIPAP WITH CONT 02 SAT MONITOR ON AT HS. WNL. SLEEPING AT THIS TIME. WILL CONTINUE TO MONITOR FREQUENTLY.
[2020-08-20 08:59] VITALS: BP 101/80
--- NOTE | 2020-08-20 10:15 | NUR ---
PT ALERT AND ORIENTED TIMES TWO, WITH CONFUSION. VSS. ÁLVAREZ AND FMS TO DD. PT DENIES PAIN. PLAN FOR PT TRANSFER BACK TO [facility] TODAY. WILL CONTINUE TO MONITOR.
--- NOTE | 2020-08-20 12:08 | NUR ---
VAT CHANGING CENTRAL LINE DRESSING DAILY,PT KEEPS PICKING AT DRESSING. DISCUSSED WITH PATIENT AND RN THAT THIS WILL BE A SOURCE OF INFECTION AND SHE HAS LIMITED VASCULAR ACCESS THAT WE CAN USE IF LINE PULLED OUT.
--- NOTE | 2020-08-20 13:58 | NUR ---
FAXED CLINICAL UPDATE TO [facility] RECEIVED CONFIRMATION WT ON COVID RESULTS FOR PT TO DC.
--- NOTE | 2020-08-20 15:09 | NUR ---
PT ALERT AND ORIENTED TIMES TWO, SOME CONFUSION. VSS. ÁLVAREZ AND FMS TO DD. PT DENIES PAIN. PT TOLERATES MEDS AND MEALS. POSSIBLE PLANS TO DISCHARGE TODAY.
--- NOTE | 2020-08-20 15:30 | NUR ---
CM SPOKE WITH [facility] THIS AM AND THEY INDICATED THAT THEY HAVE A BED TO ACCEPT PT BACK THIS DAY. CM NOTIFIED CARE TEAM. CM NOTIFIED PT AND HER SISTER. THEY ARE AWARE AND AGREEABLE. CHART COPY ORDERED. [facility] TRANSPORT WAS ARRANGED FOR [id number]. FACILITY NEEDED UPDATED COVID TEST. ONE WAS COLLECTED THIS AM BUT ORDER HADN'T BEEN ENTERED SO SAMPLE WASN'T SENT ON AT 12:00. RESULTS WON'T BE BACK IN TIME FOR PT TO DC THIS DAY. IT WILL GO OUT AT 1600 WITH RESULTS 1999. CM NOTIFIED CARE TEAM AND FACILITY. CM TO NOTIFY FAMILY AND PT. CM FOLLOWING REGARDING DC PLANNING.
[2020-08-20 16:45] VITALS: BP 138/63
[2020-08-20 20:22] VITALS: BP 96/46
--- NOTE | 2020-08-21 06:32 | NUR ---
Pt. drowsy during the shift, but opens her eyes to verbal stimuli. She offers no c/o pain. Will continue to follow plan of care.
[2020-08-21 07:48] VITALS: BP 90/67
[2020-08-21 09:11] VITALS: BP 90/67
--- NOTE | 2020-08-21 12:36 | NUR ---
CM FAXED NEGATIVE CVID TEST FROM [facility] TO FACILITY THIS AM. THEY RECIEVED IT AND ARE ABLE TO ACCEPT PT TODAY. [facility] TRANSPORT TO BE SET UP. ORDERS FAXED TO FACILITY. PT AND FAMILY ARE AWARE.
--- NOTE | 2020-08-21 15:07 | NUR ---
PT DISCHARGING TODAY TO [facility] SKILLED FAXED DC ORDERS/SUMMARY TO FACILITY SPOKE WITH LAURA IN ADM SHE RECEIVED ORDERS. PT IS A [facility]RET[facility] TRANSPORT FACILITY CAN ONLY DO WC VAN TRANSPORT SO TRANSPORT ARRANGED WITH [facility] FOR [id number] TODAY. PT'S FAMILY NOTIFIED BY AMANDA GUILLAUME) OF DC AND TIME OF TRANSPORT. UNIT NOTIFIED AND CHART COPY PER US. RN TO CALL REPORT TO [phone].
--- NOTE | 2020-08-21 16:22 | NUR ---
Assumed pt care at 7am.Assessment completed. vss.Pt in bed very drowsy but arousable.Assisted with feeding at breakfast and lunch.Pt ate 30%.Received call from pt's sister,updates given.Dr Lee here.dc order noted.manager home healthcare arranged for transport.At 1600,pt dc to [facility] per stretcher after given report to Smiley lei.Pt sister informed about dc.
[2020-08-22] MEDS ORDERED: BIDIL TABLET1 EACH PO (09:44)
== END 2020-08-21 16:07 | DRG 871 ==
LOC: ER 15:27 → EROBS 18:57 → ICU 18:57 → EROBS 08-13 20:07 → ICU 08-13 23:47 → 4W 08-15 17:31
PROVIDERS: Emergency Medicine Emergency Medical Services; Hospitalist; Internal Medicine Nephrology; Internal Medicine Pulmonary Disease; Nurse Practitioner; ADMIT Internal Medicine; ATTEND Internal Medicine
PROC: 5A09457 Assistance with Respiratory Ventilation, 24-96 Consecutive Hours, Continuous Positive Airway Pressure (ICD-10-PCS; principal; 2020-08-13)
PROC: B548ZZA Ultrasonography of Superior Vena Cava, Guidance (ICD-10-PCS; 2020-08-15)
PROC: 0JH63XZ Insertion of Tunneled Vascular Access Device into Chest Subcutaneous Tissue and Fascia, Percutaneous Approach (ICD-10-PCS; 2020-08-15)
PROC: 02HV33Z Insertion of Infusion Device into Superior Vena Cava, Percutaneous Approach (ICD-10-PCS; 2020-08-15)
PROC: 5A09357 Assistance with Respiratory Ventilation, Less than 24 Consecutive Hours, Continuous Positive Airway Pressure (ICD-10-PCS; 2020-08-16)
PROC: 5A09357 Assistance with Respiratory Ventilation, Less than 24 Consecutive Hours, Continuous Positive Airway Pressure (ICD-10-PCS; 2020-08-17)
PROC: 5A09357 Assistance with Respiratory Ventilation, Less than 24 Consecutive Hours, Continuous Positive Airway Pressure (ICD-10-PCS; 2020-08-19)
PROC: 5A09357 Assistance with Respiratory Ventilation, Less than 24 Consecutive Hours, Continuous Positive Airway Pressure (ICD-10-PCS; 2020-08-20)
DX: A41.9 Sepsis, unspecified organism (principal); L89.893 Pressure ulcer of other site, stage 3; L89.323 Pressure ulcer of left buttock, stage 3; I50.23 Acute on chronic systolic (congestive) heart failure; G92 Toxic encephalopathy; E43 Unspecified severe protein-calorie malnutrition; N17.0 Acute kidney failure with tubular necrosis; J96.21 Acute and chronic respiratory failure with hypoxia; I48.20 Chronic atrial fibrillation, unspecified; Z68.45 Body mass index [BMI] 70 or greater, adult; N18.4 Chronic kidney disease, stage 4 (severe); I13.0 Hypertensive heart and chronic kidney disease with heart failure and stage 1 through stage 4 chronic kidney disease, or unspecified chronic kidney disease; L89.159 Pressure ulcer of sacral region, unspecified stage; J44.9 Chronic obstructive pulmonary disease, unspecified; G47.33 Obstructive sleep apnea (adult) (pediatric); E78.00 Pure hypercholesterolemia, unspecified; J45.909 Unspecified asthma, uncomplicated; K21.9 Gastro-esophageal reflux disease without esophagitis; M10.9 Gout, unspecified; I25.5 Ischemic cardiomyopathy; E11.22 Type 2 diabetes mellitus with diabetic chronic kidney disease; I27.29 Other secondary pulmonary hypertension; Z20.822 Contact with and (suspected) exposure to COVID-19; F32.9 Major depressive disorder, single episode, unspecified; I34.0 Nonrheumatic mitral (valve) insufficiency; I25.10 Atherosclerotic heart disease of native coronary artery without angina pectoris; Z88.1 Allergy status to other antibiotic agents; Z90.89 Acquired absence of other organs; I25.2 Old myocardial infarction; Z87.891 Personal history of nicotine dependence; Z95.0 Presence of cardiac pacemaker; Z79.4 Long term (current) use of insulin; Z79.82 Long term (current) use of aspirin; Z79.899 Other long term (current) drug therapy
CPT/HCPCS: 10047; 10078

== ENCOUNTER 2020-08-22 07:51 | Inpatient (IN) | payer OTHER ==
[~2020-08-22] VITALS: Ht 175.3 cm; Wt 219.5 kg
--- NOTE | ~2020-08-22 | HC ---
[facility] [place], [place] [address] CONSULTATION Name: JOHN SPARKS Room #: 215-P ADM IN M.R.#: [id number] Admission: 08/22/20 Attend Phys: Enrrique Lee MD Discharge: Date of : 66 Report #: [id number] THIS REPORT FOR: cc: Dustin Cuellar MD, Christopher B. MD Stephens, Thad A. MD ~ DATE OF SERVICE: 08/23/2020 WOUND CARE CONSULTATION PERSONAL PHYSICIAN: Puneet Cuellar MD CHIEF COMPLAINT: Multiple decubitus ulcers. HISTORY OF PRESENT ILLNESS: This is a 49-year-old black female that we have been following for the past several weeks for decubitus ulcers in her bilateral gluteal region and bilateral posterior thighs. The patient was actually just discharged 2 days ago and has now returned for increased shortness of breath. We have been asked to see the patient again in regards to the care of the decubitus ulcers. The patient at this time is on BiPAP, and is somnolent and is unable to give any further history. Nursing staff does state there are no new wounds that have occurred in the past 2 days. PAST MEDICAL HISTORY: Significant for congestive heart failure, hypertension, diabetes, cardiomyopathy with EF of approximately 20%, super morbid obesity and protein-calorie malnutrition. CURRENT MEDICATIONS: Multiple, I reviewed the patient's medication list. DRUG ALLERGIES: CIPRO AND AMIODARONE. SOCIAL HISTORY: The patient resides in a long-term care facility. FAMILY HISTORY: Not pertinent to current medical condition. FAMILY HISTORY AND REVIEW OF SYSTEMS: Unobtainable because of the patient's obtunded state. PHYSICAL EXAMINATION: VITAL SIGNS: The patient is afebrile, pulse 87, respirations 15, BP 95/57. GENERAL: This is an obtunded black female who is morbidly obese. HEENT: Normocephalic, atraumatic. Mucous membranes are dry. BiPAP was in place. NECK: Supple and nontender. LUNGS: Diminished breath sounds heard throughout. [address] [address] CONSULTATION Name: BRIDGERJOHN L Room #: 215-P [facility].#: [id number] Admission: 08/22/20 Attend Phys: Enrrique Lee MD Discharge: Date of : 66 Report #: [id number] HEART: Regular. ABDOMEN: Morbidly obese, appears nontender. EXTREMITIES: The patient has multiple scattered decubitus ulcers, stage 3 on the bilateral gluteal region as well as bilateral posterior thighs. Bilateral heels are intact. NEUROLOGIC: The patient is obtunded at this time, but responds to pain. LABORATORY DATA: White count 9.6, hemoglobin 7.6, BUN 121, creatinine 4.9, albumin 2.1. IMPRESSION: 1. Multiple scattered stage 3 decubitus ulcers to the bilateral gluteal region. 2. Multiple scattered stage 3 decubitus ulcers to the bilateral posterior thighs. 3. Super morbid obesity. 4. Congestive heart failure with an ejection fraction of 20%. 5. Atrial fibrillation. 6. Coronary artery disease. 7. Diabetes mellitus type 2. 8. Severe protein-calorie malnutrition, albumin 2.1. PLAN: We will start Z-Guard to all the decubitus ulcers, leave open to air, place this twice daily and p.r.n. We will put the patient on a bariatric bed, have her turned every 2 hours. Try to maximize the patient's oral protein supplementation as able. We will attempt to utilize physical and occupational therapy for strengthening. We will continue to follow the patient. By: [id number] Nabil Caruso MD /nt
[~2020-08-22 07:51] MED LIST changes: +ASA81BEC PO; +XARELTO20 MG PO; +cholecalciferol PO
[2020-08-22 07:52] VITALS: BP 66/58
[2020-08-22 08:15] LABS: URINE BILIRUBIN 1+ (Negative); URINE BLOOD 3+ (Negative); URINE CLARITY CLOUDY; URINE COLOR YELLOW; URINE GLUCOSE-RANDOM* NEGATIVE (Negative); URINE KETONES TRACE (Negative); URINE NITRITE-REFLEX NEGATIVE (Negative); URINE PROTEIN (DIPSTICK) 2+ (Negative); URINE UROBILINOGEN 0.2 E.U./dl (0.2-1.0)
[2020-08-22 08:26] LABS: URINE LEUKOCYTES-REFLEX 3+ (Negative)
[2020-08-22 08:28] LABS: ICTOTEST (BILI CONFIRMATORY) Positive (Negative)
[2020-08-22 08:42] LABS: CASTS None Seen /LPF (None Seen); CRYSTALS None Seen /LPF (None Seen); SQUAMOUS 0-3 Few /LPF (0-3); YEAST-REFLEX Present (None Seen)
--- NOTE | 2020-08-22 08:42 | EKG ---
[address] [address] [facility] [place] [address] ELECTROCARDIOGRAM REPORT Name: JOHN SPARKS Room #: [facility]#: [id number] Admission: Attend Phys: Discharge: Date of : 66 Report #: [id number] [facility] ED Test Date: 2020-08-22 Test Time: 08:09:35 Pat Name: JOHN SPARKS Department: Room: Gender: F Tobacco Checkout Clerk: ezio : 1970 Requested By: Shukri Ang Order Number: [id number] MD: Sharad Payan Measurements Intervals [place] Rate: 102 P: AR: QRS: -24 QRSD: 108 T: 158 QT: 410 QTc: 535 Interpretive Statements Atrial fibrillation Premature ventricular complexes Poor R wave progression Prolonged QT interval Compared to ECG 08/12/2020 15:33:54 Ventricular premature complex(es) now present Electronically Signed On 08-22-2020 8:42:36 LOOKBACK COORDINATOR by Sharad Payan [email or web address] <ELECTRONICALLY SIGNED> By: Sharad Payan MD, [facility] 08/22/20 0842 0809 8 Sharad Payan MD, FACC /EPI
[2020-08-22 08:43] LABS: URINE WBC-REFLEX 6-15 Few /HPF (0-5)
[2020-08-22 08:44] LABS: BACTERIA-REFLEX 1-9 Few /HPF (None Seen); URINE RBC 3-10 Few /HPF (0-2)
[2020-08-22 08:56] LABS: HEMOGLOBIN 7.7 gm/dL (12.0-15.0)
[2020-08-22 08:58] LABS: HEMATOCRIT 24.1 % (37.0-47.0); MCHC 31.9 g/dL (28.0-37.0); MCV 87.6 fL (80.0-100.0); PLATELET COUNT 134 thou/uL (150-400); RBC 2.75 mil/uL (4.20-5.00); RDW 21.2 % (10.5-14.5); WBC 9.8 thou/uL (4.0-11.0)
[2020-08-22 09:04] LABS: CALCIUM 10.2 mg/dL (8.5-10.1); CREATININE 4.8 mg/dL (0.6-1.0); POTASSIUM 3.7 mmol/L (3.5-5.1)
[2020-08-22 09:11] LABS: ALBUMIN 2.1 g/dL (3.4-5.0); TOTAL BILIRUBIN 9.4 mg/dL (0.2-1.0); TOTAL PROTEIN 7.2 g/dL (6.4-8.2)
[2020-08-22] MEDS ORDERED: BIDIL TABLET1 EACH PO (09:44)
[2020-08-22 09:48] LABS: BE(vivo) -2.6 mmol/L (-2 to +3); HCO3 24.2 mmol/L (22.0-26.0); PCO2 VENOUS 52.4 mmHg (41.0-51.0); PO2 VENOUS 42.7 mmHg (35.0-45.0)
[2020-08-22 11:37] LABS: ABSOLUTE NEUTROPHILS 7.5 thou/uL (1.4-8.2); PLATELET ESTIMATE NORMAL
--- NOTE | 2020-08-22 14:06 | EKG ---
[address] [address] ELECTROCARDIOGRAM REPORT Name: JOHN SPARKS Room #: 170-10 ADM IN ..#: [id number] Admission: 08/22/20 Attend Phys: Enrrique Lee MD Discharge: Date of : 66 Report #: [id number] [facility] ED Test Date: 2020-08-22 Test Time: 08:12:25 Pat Name: JOHN TUCKERHIP Department: Room: 170 10 Gender: F Management Intern: : 1970 Requested By: Enrrique Lee Order Number: [id number] MD: Skyler Bliss Measurements Intervals [place] Rate: 96 P: MA: QRS: -17 QRSD: 178 T: QT: 403 QTc: 510 Interpretive Statements Artifact, suspect AFIB Nonspecific intraventricular conduction delay Compared to ECG 08/22/2020 08:09:35 Aberrant conduction of supraventricular beat(s) now present Intraventricular conduction delay now present Prolonged QT interval no longer present Electronically Signed On 08-22-2020 14:06:45 PRODUCTION SCHEDULER by Skyler Bliss [email or web address] <ELECTRONICALLY SIGNED> By: Skyler Bliss MD, FACC 08/22/20 1406 1 1 Skyler Bliss MD, FAC /EPI
[2020-08-22 14:59] VITALS: BP 126/39
--- NOTE | 2020-08-22 15:08 | NUR ---
Patient familiar to casemgt. She resides at home with 2 sons and brother. She recently in was home from skilled stay at [facility]. Patient has recent hosp stays and dc to [facility] and readmits with [facility]. [facility] liason called to report concerns if patient a rehab candidate. She becomes [facility] working with therapy. They planned to discuss goals of care with patient if reasonable for dc home when patient admitted to [facility]. Casemgt to follow for dc plans as directed by phys.
[2020-08-22 16:03] LABS: BE(vivo) -4.3 mmol/L (-2 to +3); HCO3 22.1 mmol/L (22.0-26.0); PCO2 47.4 mmHg (35.0-45.0); PO2 102.3 mmHg (80.0-100.0)
[2020-08-22 16:20] LABS: pH 7.287 (7.360-7.450)
--- NOTE | 2020-08-22 17:14 | NUR ---
ON UNIT. TRYING TO REMOVE HER BIPAP FREQUENTLY MADE NEED RESTRAINTS IF NOT COMPLIANT, WAKES UP SCARED AND IRRITATED TO MASK. CONSTANT REINFORCEMENT FOR COMPLIANC EOF BIPAP MASK. AFIB, CONTROLLED RATE. FECAL TUBE IS SLOW. URINARY CATHETER IN PLACE AND DRAING. RED PORT ON PICC LINE NOT FLUSHING WILL NOTIFY PICC TEAM OF SUCH.
--- NOTE | 2020-08-22 18:34 | NUR ---
RECEIVED PT FROM THE ED. PT IS ORIENTED ONLY TO SELF. PT IS CURRENTLY ON BIPAP 40%, 18BPM. PT HAS DIMINISHED BREATH SOUNDS, WITH COARSE CRACKLES IN BASES. PT HAS HX OF AFIB. PT HAS ÁLVAREZ CATH AND FECAL MGMT SYSTEM IN PLACE. PT HAS PICC IN R JUGULAR. PT IS MORBIDLY OBESE. PT HAS PROFO BOOTS ON. POC: BIPAP COMPLIANCE, MAKE BREATHING EASIER; MONITOR LAB VALUES ABG/VBG. NO CONCERNS AT THIS TIME.
[2020-08-22 20:31] VITALS: BP 106/66
[2020-08-22 23:54] VITALS: BP 95/55
[2020-08-23 03:51] VITALS: BP 100/77
[2020-08-23 05:25] LABS: CREATININE 4.9 mg/dL (0.6-1.0); POTASSIUM 3.8 mmol/L (3.5-5.1)
[2020-08-23 05:27] LABS: HEMATOCRIT 23.2 % (37.0-47.0); HEMOGLOBIN 7.6 gm/dL (12.0-15.0); MCH 28.3 pg (26.0-34.0); MCHC 32.6 g/dL (28.0-37.0); MCV 86.7 fL (80.0-100.0); RBC 2.67 mil/uL (4.20-5.00); RDW 20.9 % (10.5-14.5); WBC 9.6 thou/uL (4.0-11.0)
--- NOTE | 2020-08-23 06:53 | NUR ---
ASSUMED PATIENT CARE AT 1845. VITAL SIGNS STABLE. PATIENT IS DISORIENTED AND UNABLE TO PARTICIPATE IN CARE. BREATHING STABLE ON BIPAP EVIDENCED BY ASSESSMENTS AND CONTINUOUS SATURATION MONITORING. NURSE ATTEMPTED TO PROVIDE TURNS AND SKIN CARE BUT WAS LIMITED DUE TO PATIENTS SIZE AND HILL ROM BED. CONTINUE PLAN OF CARE.
[2020-08-23 08:10] VITALS: BP 95/57
[2020-08-23 11:55] VITALS: BP 100/55
--- NOTE | 2020-08-23 15:55 | NUR ---
FAXED REFERRAL TO HOSPICE HOUSE SPOKE WITH EVARISTO IN INTAKE SHE RECEIVED REFERRAL AND WILL EVAL PT FOR THE HOSPICE HOUSE. SHE IS HAVING HER NURSE CALL NITIN RN/SO TO GO OVER PT INFO. DP TO FOLLOW.
--- NOTE | 2020-08-23 16:21 | NUR ---
Hospice consult rec'd. Discussed with the care team and pt's sister Leana and son/dpoa Rudolph Cha via phone. Rudolph notes that they would like to have info visit and consider either home with hospice or hospice house. They are discussing DNR and hospice options with other extended family/children. He has the DPOA for HC. He is having phone issues today and can be reached at [phone]; but will have his usually cell number back up and running tomorrow [phone]. Referral faxed and called to Hospice. They will contact the pt's son today to arrange a bedside eval and info visit tomorrow. Pt is on bipap at this time. She is a full code. Outside the hospital DNR form left on the chart for son's signature should they decide to change to DNR tomorrow. [facility] form on the chart as well should dc to hospice house or home with hospice move forward this weekend. Support provided.
[2020-08-23 17:35] VITALS: BP 91/63
--- NOTE | 2020-08-23 19:35 | NUR ---
ASSESSMENT CHARTED - MEDS PER OCT - PT ESSENTIALY NON RESPONSIVE - DID APPEAR TO GROAN AND OPEN EYES ON OCCASSION. STIMULI APPLIED TO NAIL BEDS WITH NO RESPONSE. PT PLACED ON LARGE AIR FLOW BED THIS AFTERNOON. MULTIPLE PHONE CALLS FROM FAMILY MEMBERS THIS SHIFT - WAS ABLE TO HAVE CASE MANAGEMENT SPEAK WITH FAMILY IN REGARDS TO PLAN OF CARE FOR PATIENT. PT HAS REMIENED ON BIAPA THROUGHOUT THE SHIFT. APPEARS TO BE TOLERATING WELL. PT WITH MULTIPLE AREAS ON SKIN THAT LOOK IF THEY ARE AREAS THAT HAVE BEEN PICKED AT. DR SU CONSULT ORDERED TODAY. SEEN BY WOUND CARE TEAM - APPEARS TO BE COMFORTABLE AT THE PRESENT TIME.
[2020-08-23 20:18] VITALS: BP 110/80; BP 125/55
[2020-08-23 23:55] VITALS: BP 134/95
[2020-08-24 04:35] LABS: ALBUMIN 2.1 g/dL (3.4-5.0); CALCIUM 9.5 mg/dL (8.5-10.1); CREATININE 5.3 mg/dL (0.6-1.0); PHOSPHORUS 6.7 mg/dL (2.6-4.7)
[2020-08-24 04:45] VITALS: BP 132/66
--- NOTE | 2020-08-24 04:56 | NUR ---
ASSUMED PATIENT CARE AT 1845. PATIENT IS OBTUNDED AND DIFFICULT AT TIMES TO ROUSE. VITAL SIGNS MOSTLY STABLE WITH NURSE NOT PERCEIVING ANY PAIN ON BEHALF OF PATIENT. BREATHING STABLE ON BIPAP EVIDENCED BY ASSESSMENTS AND CONTINUOUS SATURATION MONITORING. MINIMAL OUTPUT THROUGH [employer] CATHETER. TURNS AND WOUND CARE LIMITED DUE TO PATIENTS FRAGILE STATE. THIS NURSE HAS SPOKEN TO PATIENTS SISTER MULTIPLE TIMES OVER SHIFT ANSWERING QUESTIONS REGARDING PATIENTS CURRENT STATE AND PROVIDING EDUCATION ON PALLIATIVE CARE IN CASE THAT IS FAMILIES DESIRE. CONTINUE PLAN OF CARE.
[2020-08-24 08:47] VITALS: BP 91/69
[2020-08-24 09:16] LABS: WBC 9.8 thou/uL (4.0-11.0)
[2020-08-24 09:18] LABS: HEMATOCRIT 22.9 % (37.0-47.0); MCHC 31.7 g/dL (28.0-37.0); MCV 88.5 fL (80.0-100.0); RBC 2.59 mil/uL (4.20-5.00); RDW 21.1 % (10.5-14.5)
[2020-08-24 09:19] LABS: HEMOGLOBIN 7.3 gm/dL (12.0-15.0)
[2020-08-24 11:35] VITALS: BP 108/51
[2020-08-24 16:32] VITALS: BP 98/75
--- NOTE | 2020-08-24 19:14 | NUR ---
PT NON VERBRAL, BUT WILL OPEN EYES WHEN NAME IS BEING CALLED. VSS. HENRI AND FMS TO DD. SPOKE WITH PT SISTER TWICE TODAY TO UPDATE OB CARE. PLANS TO DISCHARGE TO HOSPICE HOUSE TODAY.
[2020-08-24 20:15] VITALS: BP 101/62
== END 2020-08-24 21:30 | disposition hospice, home (50) | DRG 291 ==
LOC: ER 07:51 → EROBS 10:22 → 2N 10:22
PROVIDERS: Emergency Medicine; Hospitalist; Internal Medicine; ADMIT Hospitalist; ATTEND Hospitalist
PROC: 5A09457 Assistance with Respiratory Ventilation, 24-96 Consecutive Hours, Continuous Positive Airway Pressure (ICD-10-PCS; principal; 2020-08-22)
DX: I13.2 Hypertensive heart and chronic kidney disease with heart failure and with stage 5 chronic kidney disease, or end stage renal disease (principal); I50.23 Acute on chronic systolic (congestive) heart failure; L89.893 Pressure ulcer of other site, stage 3; E43 Unspecified severe protein-calorie malnutrition; L89.323 Pressure ulcer of left buttock, stage 3; L89.313 Pressure ulcer of right buttock, stage 3; J96.01 Acute respiratory failure with hypoxia; N18.6 End stage renal disease; G92 Toxic encephalopathy; N17.9 Acute kidney failure, unspecified; N39.0 Urinary tract infection, site not specified; Z68.45 Body mass index [BMI] 70 or greater, adult; I42.0 Dilated cardiomyopathy; D64.9 Anemia, unspecified; E66.01 Morbid (severe) obesity due to excess calories; I48.91 Unspecified atrial fibrillation; I25.10 Atherosclerotic heart disease of native coronary artery without angina pectoris; G47.33 Obstructive sleep apnea (adult) (pediatric); I27.20 Pulmonary hypertension, unspecified; D69.6 Thrombocytopenia, unspecified; E11.22 Type 2 diabetes mellitus with diabetic chronic kidney disease; J44.9 Chronic obstructive pulmonary disease, unspecified; Z20.822 Contact with and (suspected) exposure to COVID-19; Z88.1 Allergy status to other antibiotic agents; Z88.8 Allergy status to other drugs, medicaments and biological substances; Z87.891 Personal history of nicotine dependence; Z95.810 Presence of automatic (implantable) cardiac defibrillator
CPT/HCPCS: 10081